=== PATIENT | female | born 1940 | race Caucasian/White ===

== ENCOUNTER 2017-05-31 06:26 | Day surgery (SDC) | payer MEDICARE, BC ==
[2017-05-31] MEDS ORDERED: Lidocaine 1% with EPINEPHrine 1:100,000 50 ML MDV ONE (06:48)
[2017-05-31] MEDS ORDERED: Sodium Tetradecyl Sulfate 1% 20 MG/2 ML SDV ONE (06:48)
[2017-05-31] MEDS ORDERED: Sodium Chloride 0.9% 10 ML ONE (06:48)
[2017-05-31] MEDS ORDERED: Sodium Chloride 0.9% 1,000 ML IV SCH (07:15)
[2017-05-31] MEDS ORDERED: Midazolam 1 MG/ML 2 ML SDV ONE (07:28)
[2017-05-31] MEDS ORDERED: fentaNYL 100 MCG/2 ML SDV ONE (07:28)
[2017-05-31] MEDS ORDERED: Propofol 200 MG/20 ML SDV ONE ×3 (07:28→08:36)
[2017-05-31] MEDS ORDERED: Lidocaine 1% w/EPINEPHrine 50 ML, Sodium Bicarbonate 5 MEQ in Sodium Chloride 0.9% 950 ML INJECT ONE ×7 (07:45→08:45)
[2017-05-31] MEDS ORDERED: Sodium Chloride 0.9% 10 ML SDV FLUSH ONE (08:23)
[2017-05-31] MEDS ORDERED: HYDROmorphone 1 MG/ML Syringe ONE (09:13)
[2017-05-31] MEDS ORDERED: HYDROmorphone 1 MG/ML Syringe IV PRN (09:14)
[2017-05-31 11:40] VITALS: BP 180/85
--- NOTE | 2017-05-31 11:46 | OR ---
DATE OF PROCEDURE: 05/31/2017 PROCEDURES: 1. Radiofrequency ablation of left greater saphenous vein. 2. Sclerotherapy of left leg, multiple. 3. Attempted, but unsuccessful ablation of left lesser saphenous vein. 4. Debridement of venous ulcer, left leg (00975). 5. CoFlex compression wrapping, left leg (34258). COMPLICATIONS: None. BUSINESS UNIT MANAGER: None. PREOPERATIVE DIAGNOSIS: Venous ulcer/venous insufficiency. POSTOPERATIVE DIAGNOSIS: Venous ulcer/venous insufficiency. RISKS: Risks, benefits, alternatives, and limitations including, but not limited to infection, bleeding, and DVT were explained to the patient, and they wished to proceed. PROCEDURE IN DETAIL: The patient was placed in supine position. The left LSV was accessed first using a 21-gauge needle. Then, this was then exchanged for a 35,000th wire, then exchanged for a 7-Nepali sheath. This procedure was then performed on the left greater saphenous vein at the level of the ankle with a different set. RFA probe was advanced in the greater saphenous vein to 3 cm from the junction. 1.5 L of tumescent fluid was injected in 1 cm jacket around this. This had poor tumescent fluid injection with the lipodermatosclerosis of the patient's skin. Direct even pressure was then performed as the RFA was probed, performed x2 proximally and distally, and x1 in all other segments. The sheath and device were removed. Direct pressure was held for 10 minutes. The LSV on left was attempted to be advanced, but the RFA probe was not able to be advanced due to tortuosity of the vein. This was then removed and Dermabond was applied. Sclerotherapy was then performed on 7 veins in the left leg, ranging from 1 to 10 cm. This was injected using 0.33% sodium tetradactyl and always drawn back to ensure intravascular injection only. Debridement of left leg ulcer was performed using a curette and 15 blade. This was full thickness. This appeared to be healing. CoFlex wrapping was then performed in a two-stage compression layer with gradient prepped from the ankle proximally. The patient tolerated the procedure well. Teodoro Sharma MD /[id number]
== END 2017-05-31 11:35 | disposition home or self-care (01) ==
LOC: JP.SDS 06:26
PROVIDERS: ATTEND Surgery
DX: I87.2 Venous insufficiency (chronic) (peripheral) (principal); I10 Essential (primary) hypertension; E78.00 Pure hypercholesterolemia, unspecified; E11.9 Type 2 diabetes mellitus without complications; Z88.8 Allergy status to other drugs, medicaments and biological substances; I83.892 Varicose veins of left lower extremity with other complications
CPT/HCPCS: 11043; 36471; 36475; 97605; J1170; J1642; J2250; J2704; J3010; J7040; J7050

== ENCOUNTER 2017-09-23 17:18 | Inpatient (IN) | payer MEDICARE, BC ==
--- NOTE | 2017-09-23 18:17 | EDM.PDOC ---
ED HPI GENERAL MEDICAL PROBLEM - General Chief Complaint: General Stated Complaint: LETHARGIC Time Seen by Provider: 09/23/17 17:51 Source of Information: Reports: Patient History Limitations: Reports: No Limitations - History of Present Illness INITIAL COMMENTS - FREE TEXT/NARRATIVE: 76 yo female presents to ER via EMS with complaint of lethargy. 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 She has extensive hx of lower leg edema. Today she had home nurse visit to set her compression boot. She did miss lunch today. When her son arrived this after noon he reprted to EMS that she was slow to respond and appeared confused. She was nauseated and was given zofran en route and this has resolved. Pt states she is very tired. Currently she feels she is thinking at baseline and sons at bedside believe she is at baseline. mild headache and dry tongue. She did receive 500 mL normal saline enroute. - Related Data Allergies Allergy/AdvReac Type Severity Reaction Status Date / Time brinzolamide Allergy Cannot Verified 09/23/17 17:34 Remember timolol maleate Allergy Cannot Verified 05/31/17 07:09 [From Timoptic] Remember Home Meds: Home Meds Ammonium Lactate [Lac-Hydrin 12% Crm] 0 gm TOP BID 04/06/15 [History] Aspirin [Halfprin] 81 mg PO DAILY 04/06/15 [History] Betaxolol [Betoptic S 0.25% Ophth Susp] 1 drop EYEBOTH BID 04/06/15 [History] Calcium Carbonate [Oyster Shell Calcium] 500 mg PO DAILY 04/06/15 [History] Carbidopa/Levodopa [Carbidopa-Levodopa 25-100 Tab] 1 each PO BEDTIME 04/06/15 [ History] Furosemide [Furosemide] 40 mg PO DAILY 04/06/15 [History] Losartan [Cozaar] 100 mg PO DAILY 04/06/15 [History] Magnesium Oxide 250 mg PO BID 04/06/15 [History] Metoprolol Tartrate 50 mg PO BID 04/06/15 [History] Multivitamin with Minerals [Multiple Vitamin] 1 tab PO DAILY 04/06/15 [History] OXcarbazepine [Oxcarbazepine] 300 mg PO BID PRN 04/06/15 [History] Omeprazole [Omeprazole] 20 mg PO DAILY 04/06/15 [History] Pramipexole [Mirapex] 0.5 mg PO BEDTIME 04/06/15 [History] metFORMIN HCl [Metformin HCl] 250 mg PO BID 04/06/15 [History] Latanoprost [Xalatan 0.005% Ophth Soln] 1 drop EYEBOTH BEDTIME 05/30/17 [History ] Ubidecarenone [Coenzyme Q10] 100 mg PO DAILY 05/30/17 [History] Simvastatin [Simvastatin] 10 mg PO DAILY 05/31/17 [History] Acetaminophen/oxyCODONE [Percocet 325-5 MG] 1 tab PO Q4HR PRN 09/23/17 [History] Betaxolol [Betoptic S 0.25% Ophth Susp] 1 drop TOP BID 09/23/17 [History] Clindamycin HCl [Cleocin] 1 tab PO TID 09/23/17 [History] Hydrocortisone [Hydrocortisone 0.5% Crm] 1 ml TOP BID 09/23/17 [History] Past Medical History HEENT History: Reports: Cataract Cardiovascular History: Reports: High Cholesterol, Hypertension Gastrointestinal History: Reports: GERD, Hiatal Hernia MEDICAL PRACTICE MANAGER History: Reports: Musculoskeletal History: Reports: Back Pain, Chronic, Fracture, Neck Pain, Chronic Other Musculoskeletal History: compression fractures of the spine, restless leg Neurological History: Reports: None Endocrine/Metabolic History: Reports: Diabetes, Type II, Obesity/BMI 30+ Dermatologic History: Reports: Decubitus Ulcer - Past Surgical History Head Surgeries/Procedures: Reports: None HEENT Surgical History: Reports: Cataract Surgery, Eye Surgery, Naso-Sinus Surgery Other HEENT Surgeries/Procedures: glacoma surgery nasal surgery Cardiovascular Surgical History: Reports: None GI Surgical History: Reports: Appendectomy, Cholecystectomy, Colonoscopy, EGD Endocrine Surgical History: Reports: None Neurological Surgical History: Reports: Lumbar Spine Other Neurological Surgeries/Procedures: kyphoplasty Musculoskeletal Surgical History: Reports: None Dermatological Surgical History: Reports: None Social & Family History - Family History Family Medical History: Noncontributory - Tobacco Use Smoking Status *Q: Never Smoker Second Hand Smoke Exposure: No - Caffeine Use Caffeine Use: Reports: Coffee - Alcohol Use Days Per Week of Alcohol Use: 0 - Recreational Drug Use Recreational Drug Use: No ED ROS GENERAL - Review of Systems Review Of Systems: See Below Constitutional: Reports: Fatigue. Denies: Fever, Chills HEENT: Denies: Sinus Problem Cardiovascular: Reports: Edema. Denies: Chest Pain, Blood Pressure Problem, Syncope GI/Abdominal: Reports: Abdominal Pain (mild), Constipation, Nausea. Denies: Vomiting Skin: Denies: Rash ED EXAM, GENERAL - Physical Exam Exam: See Below Exam Limited By: No Limitations General Appearance: Alert, WD/WN, No Apparent Distress Throat/Mouth: Other (dry ) Head: Atraumatic, Normocephalic Neck: Normal Inspection, Supple, Non-Tender, Full Range of Motion Respiratory/Chest: No Respiratory Distress, Lungs Clear, Normal Breath Sounds, No Accessory Muscle Use, Chest Non-Tender Cardiovascular: Regular Rate, Rhythm, Systolic Murmur GI/Abdominal: Soft, Non-Tender Extremities: Other (bilateral LE extensive edema) Neurological: Alert, Oriented, CN II-XII Intact, Normal Cognition Psychiatric: Normal Affect, Normal Mood Skin Exam: Warm, Dry, Intact Course - Vital Signs Last Recorded V/S: Last Vital Signs Temp 35.8 C 09/23/17 17:47 Pulse 64 09/23/17 17:47 Resp 14 09/23/17 17:47 BP 123/53 L 09/23/17 17:47 Pulse Ox 96 09/23/17 17:47 - Orders/Labs/Meds Labs: Laboratory Tests 09/23/17 09/23/17 09/23/17 Range/Units 18:17 18:17 18:17 WBC 10.9 (4.5-11.0) K/uL RBC 3.97 (3.30-5.50) M/uL Hgb 11.7 L (12.0-15.0) g/dL Hct 34.1 L (36.0-48.0) % MCV 86 (80-98) fL MCH 30 (27-31) pg MCHC 34 (32-36) % Plt Count 424 H (150-400) K/uL Neut % (Auto) 86 H (36-66) % Lymph % (Auto) 6 L (24-44) % [place] % (Auto) 7 H (2-6) % Eos % (Auto) 1 L (2-4) % Baso % (Auto) 0 (0-1) % Sodium 124 L (140-148) mmol/L Potassium 5.5 H (3.6-5.2) mmol/L Chloride 92 L (100-108) mmol/L Carbon Dioxide 22 (21-32) mmol/L Anion Gap 15.5 H (5.0-14.0) mmol/L BUN 74 H (7-18) mg/dL Creatinine 2.4 H (0.6-1.0) mg/dL Est Cr Clr Drug Dosing 14.10 mL/min Estimated GFR (MDRD) 20 L (>60) Glucose 122 H (74-106) mg/dL Calcium 9.0 (8.5-10.1) mg/dL Total Bilirubin 0.5 (0.2-1.0) mg/dL AST 22 (15-37) U/L ALT 23 (12-78) U/L Alkaline Phosphatase 194 H (46-116) U/L NT-Pro-B Natriuret Pep 1189 H (5-450) pg/mL Total Protein 7.5 (6.4-8.2) g/dL Albumin 2.8 L (3.4-5.0) g/dL Globulin 4.7 H (2.3-3.5) g/dL Albumin/Globulin Ratio 0.6 L (1.2-2.2) Urine Color Urine Appearance Urine pH (4.5-8.0) Ur Specific [place] (1.008-1.030) Urine Protein (NEGATIVE) mg/dL Urine Glucose (UA) (NEGATIVE) mg/dL Urine Ketones (NEGATIVE) mg/dL Urine Occult Blood (NEGATIVE) Urine Nitrite (NEGATIVE) Urine Bilirubin (NEGATIVE) Urine Urobilinogen (NORMAL) mg/dL Ur Leukocyte Esterase (NEGATIVE) Urine RBC (0-5) Urine WBC (0-5) Ur Epithelial Cells Amorphous Sediment Urine Bacteria Urine Mucus 09/23/17 Range/Units 18:18 WBC (4.5-11.0) K/uL RBC (3.30-5.50) M/uL Hgb (12.0-15.0) g/dL Hct (36.0-48.0) % MCV (80-98) fL MCH (27-31) pg MCHC (32-36) % Plt Count (150-400) K/uL Neut % (Auto) (36-66) % Lymph % (Auto) (24-44) % [place] % (Auto) (2-6) % Eos % (Auto) (2-4) % Baso % (Auto) (0-1) % Sodium (140-148) mmol/L Potassium (3.6-5.2) mmol/L Chloride (100-108) mmol/L Carbon Dioxide (21-32) mmol/L Anion Gap (5.0-14.0) mmol/L BUN (7-18) mg/dL Creatinine (0.6-1.0) mg/dL Est Cr Clr Drug Dosing mL/min Estimated GFR (MDRD) (>60) Glucose (74-106) mg/dL Calcium (8.5-10.1) mg/dL Total Bilirubin (0.2-1.0) mg/dL AST (15-37) U/L ALT (12-78) U/L Alkaline Phosphatase (46-116) U/L NT-Pro-B Natriuret Pep (5-450) pg/mL Total Protein (6.4-8.2) g/dL Albumin (3.4-5.0) g/dL Globulin (2.3-3.5) g/dL Albumin/Globulin Ratio (1.2-2.2) Urine Color Yellow Urine Appearance Slightly cloudy Urine pH 5.0 (4.5-8.0) Ur Specific [place] 1.015 (1.008-1.030) Urine Protein Negative (NEGATIVE) mg/dL Urine Glucose (UA) Normal (NEGATIVE) mg/dL Urine Ketones Negative (NEGATIVE) mg/dL Urine Occult Blood Moderate (NEGATIVE) Urine Nitrite Positive H (NEGATIVE) Urine Bilirubin Negative (NEGATIVE) Urine Urobilinogen Normal (NORMAL) mg/dL Ur Leukocyte Esterase Negative (NEGATIVE) Urine RBC 5-10 H (0-5) Urine WBC 5-10 H (0-5) Ur Epithelial Cells Few Amorphous Sediment Not seen Urine Bacteria Many Urine Mucus Rare - Re-Assessments/Exams Free Text/Narrative Re-Assessment/Exam: 09/23/17 19:09 pt will be admitted with UTI, and dehydration. significant decrease in kidney function in 4 months with BNP 1189. pt states that over the last 4 week she has not been diuresising as much as before with her Lasix dose of 40 mg and bilateral legs have increased in size and increase in pain. Dr. Augustine accepted for admission. Departure - Departure Time of Disposition: 19:13 Disposition: Admitted As Inpatient 65 Condition: Fair Clinical Impression: UTI, Urinary tract infectious disease, Dehydration - Discharge Information Referrals: PCP,None [Primary Care Provider] - Forms: ED Department Discharge
[2017-09-23] MEDS ORDERED: Sodium Chloride 0.9% 10 ML Syringe FLUSH PRN (19:24)
--- NOTE | 2017-09-23 19:41 | PCM.HP ---
H&P History of Present Illness - General Date of Service: 09/23/17 Admit Problem/Dx: Admission Diagnosis/Problem Admission Diagnosis/Problem Acute kidney injury Source of Information: Patient, Family, Provider History Limitations: Reports: No Limitations - History of Present Illness Initial Comments - Free Text/Narative: Migdalia presents to the emergency room today with lethargy and weakness. She reports that she has not felt well for the past month but has felt especially worse for the past 2-3 days. She has been very fatigued and has not been sleeping well. 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 She does not report abdominal pain or vomiting but has had some nausea. She has not had much of an appetite and has had very little to eat or drink. She reports moderate sharp and throbbing pain in both of her lower legs. This has been worsening over the past month. Worse with any sort of pressure over the legs. Better with less pressure on the legs. She has been working with Dr. Sharma and other folks to help with wound care but has not made much progress and things have been slowly worsening. Home health care has been assisting with trying to improve the edema. She has not had fevers. No obvious sick contacts. No dysuria or increased urinary frequency. She has noticed that she's been urinating less than usual. Workup in the emergency room revealed hyponatremia, hyperkalemia and acute kidney injury as well as evidence for urinary tract infection. Vital signs do not suggest sepsis at this time. She'll be admitted for hydration and management. - Related Data Allergies/Adverse Reactions: Allergies Allergy/AdvReac Type Severity Reaction Status Date / Time brinzolamide Allergy Cannot Verified 09/23/17 17:34 Remember timolol maleate Allergy Cannot Verified 05/31/17 07:09 [From Timoptic] Remember Home Medications: Home Meds Ammonium Lactate [Lac-Hydrin 12% Crm] 0 gm TOP BID 04/06/15 [History] Aspirin [Halfprin] 81 mg PO DAILY 04/06/15 [History] Betaxolol [Betoptic S 0.25% Ophth Susp] 1 drop EYEBOTH BID 04/06/15 [History] Calcium Carbonate [Oyster Shell Calcium] 500 mg PO DAILY 04/06/15 [History] Carbidopa/Levodopa [Carbidopa-Levodopa 25-100 Tab] 1 each PO BEDTIME 04/06/15 [ History] Furosemide [Furosemide] 40 mg PO DAILY 04/06/15 [History] Losartan [Cozaar] 100 mg PO DAILY 04/06/15 [History] Magnesium Oxide 250 mg PO BID 04/06/15 [History] Metoprolol Tartrate 50 mg PO BID 04/06/15 [History] Multivitamin with Minerals [Multiple Vitamin] 1 tab PO DAILY 04/06/15 [History] OXcarbazepine [Oxcarbazepine] 300 mg PO BID PRN 04/06/15 [History] Omeprazole [Omeprazole] 20 mg PO DAILY 04/06/15 [History] Pramipexole [Mirapex] 0.5 mg PO BEDTIME 04/06/15 [History] metFORMIN HCl [Metformin HCl] 250 mg PO BID 04/06/15 [History] Latanoprost [Xalatan 0.005% Ophth Soln] 1 drop EYEBOTH BEDTIME 05/30/17 [History ] Ubidecarenone [Coenzyme Q10] 100 mg PO DAILY 05/30/17 [History] Simvastatin [Simvastatin] 10 mg PO DAILY 05/31/17 [History] Acetaminophen/oxyCODONE [Percocet 325-5 MG] 1 tab PO Q4HR PRN 09/23/17 [History] Betaxolol [Betoptic S 0.25% Ophth Susp] 1 drop TOP BID 09/23/17 [History] Clindamycin HCl [Cleocin] 1 tab PO TID 09/23/17 [History] Hydrocortisone [Hydrocortisone 0.5% Crm] 1 ml TOP BID 09/23/17 [History] Past Medical History HEENT History: Reports: Cataract Cardiovascular History: Reports: High Cholesterol, Hypertension Gastrointestinal History: Reports: GERD, Hiatal Hernia 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: Musculoskeletal History: Reports: Back Pain, Chronic, Fracture, Neck Pain, Chronic Other Musculoskeletal History: compression fractures of the spine, restless leg Neurological History: Reports: None Endocrine/Metabolic History: Reports: Diabetes, Type II, Obesity/BMI 30+ Dermatologic History: Reports: Decubitus Ulcer - Past Surgical History Head Surgeries/Procedures: Reports: None HEENT Surgical History: Reports: Cataract Surgery, Eye Surgery, Naso-Sinus Surgery Other HEENT Surgeries/Procedures: glacoma surgery nasal surgery Cardiovascular Surgical History: Reports: None GI Surgical History: Reports: Appendectomy, Cholecystectomy, Colonoscopy, EGD Endocrine Surgical History: Reports: None Neurological Surgical History: Reports: Lumbar Spine Other Neurological Surgeries/Procedures: kyphoplasty Musculoskeletal Surgical History: Reports: None Dermatological Surgical History: Reports: None Social & Family History - Family History Family Medical History: Noncontributory - Tobacco Use Smoking Status *Q: Never Smoker Second Hand Smoke Exposure: No - Caffeine Use Caffeine Use: Reports: Coffee - Alcohol Use Days Per Week of Alcohol Use: 0 - Recreational Drug Use Recreational Drug Use: No H&P Review of Systems - Review of Systems: Review Of Systems: See Below Free Text/Narrative: A complete 12 point review of systems was obtained. Pertinent positives and negatives are noted in the history of present illness. All other systems were reviewed and were negative except as noted. Exam - Exam Exam: See Below - Vital Signs Vital Signs: Last Vital Signs Temp 35.8 C 09/23/17 17:47 Pulse 64 09/23/17 17:47 Resp 14 09/23/17 17:47 BP 123/53 L 09/23/17 17:47 Pulse Ox 96 09/23/17 17:47 Weight: 89.811 kg - Exam Quality Assessment: No: Supplemental Oxygen General: Alert, Oriented, Cooperative. No: Mild Distress HEENT: Conjunctiva Clear. No: Mucosa Moist & [place] (dry), Scleral Icterus Neck: Supple, Trachea Midline. No: Lymphadenopathy Lungs: Clear to Auscultation, Normal Respiratory Effort Cardiovascular: Regular Rate, Regular Rhythm, Systolic Murmur GI/Abdominal Exam: Normal Bowel Sounds, Soft, Non-Tender, No Distention Back Exam: Full Range of Motion. No: Muscle Spasm Extremities: Pedal Edema (Pitting edema of both lower legs to near the knee with acute venous stasis changes and open weeping areas). No: Joint Swelling, Increased Warmth Skin: Warm, Dry, Wound (Open weeping areas of both lower legs. No evidence for erythema or infection) Neuro Extensive - Mental Status: Alert, Oriented x3, Nl Response to Commands Neuro Extensive - Motor, Sensory, Reflexes: CN II-XII Intact. No: Dysarthria, Abnormal Motor, Tremor Psychiatric: Alert, Normal Affect - Patient Data Lab Results Last 24 hrs: Laboratory Results - last 24 hr 09/23/17 09/23/17 09/23/17 Range/Units 18:17 18:17 18:17 WBC 10.9 (4.5-11.0) K/uL RBC 3.97 (3.30-5.50) M/uL Hgb 11.7 L (12.0-15.0) g/dL Hct 34.1 L (36.0-48.0) % MCV 86 (80-98) fL MCH 30 (27-31) pg MCHC 34 (32-36) % Plt Count 424 H (150-400) K/uL Neut % (Auto) 86 H (36-66) % Lymph % (Auto) 6 L (24-44) % [place] % (Auto) 7 H (2-6) % Eos % (Auto) 1 L (2-4) % Baso % (Auto) 0 (0-1) % Sodium 124 L (140-148) mmol/L Potassium 5.5 H (3.6-5.2) mmol/L Chloride 92 L (100-108) mmol/L Carbon Dioxide 22 (21-32) mmol/L Anion Gap 15.5 H (5.0-14.0) mmol/L BUN 74 H (7-18) mg/dL Creatinine 2.4 H (0.6-1.0) mg/dL Est Cr Clr Drug Dosing 14.10 mL/min Estimated GFR (MDRD) 20 L (>60) Glucose 122 H (74-106) mg/dL Calcium 9.0 (8.5-10.1) mg/dL Total Bilirubin 0.5 (0.2-1.0) mg/dL AST 22 (15-37) U/L ALT 23 (12-78) U/L Alkaline Phosphatase 194 H (46-116) U/L NT-Pro-B Natriuret Pep 1189 H (5-450) pg/mL Total Protein 7.5 (6.4-8.2) g/dL Albumin 2.8 L (3.4-5.0) g/dL Globulin 4.7 H (2.3-3.5) g/dL Albumin/Globulin Ratio 0.6 L (1.2-2.2) Urine Color Urine Appearance Urine pH (4.5-8.0) Ur Specific [place] (1.008-1.030) Urine Protein (NEGATIVE) mg/dL Urine Glucose (UA) (NEGATIVE) mg/dL Urine Ketones (NEGATIVE) mg/dL Urine Occult Blood (NEGATIVE) Urine Nitrite (NEGATIVE) Urine Bilirubin (NEGATIVE) Urine Urobilinogen (NORMAL) mg/dL Ur Leukocyte Esterase (NEGATIVE) Urine RBC (0-5) Urine WBC (0-5) Ur Epithelial Cells Amorphous Sediment Urine Bacteria Urine Mucus 09/23/17 Range/Units 18:18 WBC (4.5-11.0) K/uL RBC (3.30-5.50) M/uL Hgb (12.0-15.0) g/dL Hct (36.0-48.0) % MCV (80-98) fL MCH (27-31) pg MCHC (32-36) % Plt Count (150-400) K/uL Neut % (Auto) (36-66) % Lymph % (Auto) (24-44) % [place] % (Auto) (2-6) % Eos % (Auto) (2-4) % Baso % (Auto) (0-1) % Sodium (140-148) mmol/L Potassium (3.6-5.2) mmol/L Chloride (100-108) mmol/L Carbon Dioxide (21-32) mmol/L Anion Gap (5.0-14.0) mmol/L BUN (7-18) mg/dL Creatinine (0.6-1.0) mg/dL Est Cr Clr Drug Dosing mL/min Estimated GFR (MDRD) (>60) Glucose (74-106) mg/dL Calcium (8.5-10.1) mg/dL Total Bilirubin (0.2-1.0) mg/dL AST (15-37) U/L ALT (12-78) U/L Alkaline Phosphatase (46-116) U/L NT-Pro-B Natriuret Pep (5-450) pg/mL Total Protein (6.4-8.2) g/dL Albumin (3.4-5.0) g/dL Globulin (2.3-3.5) g/dL Albumin/Globulin Ratio (1.2-2.2) Urine Color Yellow Urine Appearance Slightly cloudy Urine pH 5.0 (4.5-8.0) Ur Specific [place] 1.015 (1.008-1.030) Urine Protein Negative (NEGATIVE) mg/dL Urine Glucose (UA) Normal (NEGATIVE) mg/dL Urine Ketones Negative (NEGATIVE) mg/dL Urine Occult Blood Moderate (NEGATIVE) Urine Nitrite Positive H (NEGATIVE) Urine Bilirubin Negative (NEGATIVE) Urine Urobilinogen Normal (NORMAL) mg/dL Ur Leukocyte Esterase Negative (NEGATIVE) Urine RBC 5-10 H (0-5) Urine WBC 5-10 H (0-5) Ur Epithelial Cells Few Amorphous Sediment Not seen Urine Bacteria Many Urine Mucus Rare Result Diagrams: 09/23/17 18:17 09/23/17 18:17 *Q Meaningful Use (ADM) - VTE *Q VTE Criteria *Q: VTE Mechanical Contraindications *Q: Bilateral Lower Dermatits - VTE Risk Assess *Q Each Risk Factor Represents 1 Point: Swollen Legs, Current, Obesity ( BMI > 25 kg/m2) Total Score 1 Point Risk Factors: 2 Each Risk Factor Represents 2 Points: None Total Score 2 Point Risk Factors: 0 Each Risk Factor Represents 3 Points: Age 75 Years or Greater Total Score 3 Point Risk Factors: 3 Each Risk Factor Represents 5 Points: None Total Score 5 Point Risk Factors: 0 Venous Thromboembolism Risk Factor Score *Q: 5 - Stroke *Q Stroke Criteria *Q: - AMI *Q AMI Criteria *Q: - Problem List (1) Acute cystitis without hematuria SNOMED Code(s): 99644762 ICD Code: N30.00 - ACUTE CYSTITIS WITHOUT HEMATURIA Status: Acute Current Visit: Yes (2) Acute kidney injury SNOMED Code(s): 50388962 ICD Code: N17.9 - ACUTE KIDNEY FAILURE, UNSPECIFIED Status: Acute Current Visit: Yes (3) Hyponatremia SNOMED Code(s): 60110696 ICD Code: E87.1 - HYPO-OSMOLALITY AND HYPONATREMIA Status: Acute Current Visit: Yes (4) Bilateral lower extremity edema SNOMED Code(s): 751076430 ICD Code: R60.0 - LOCALIZED EDEMA Status: Acute Current Visit: Yes (5) Stasis dermatitis of both legs SNOMED Code(s): 71221264 ICD Code: I87.2 - VENOUS INSUFFICIENCY (CHRONIC) (PERIPHERAL) Status: Acute Current Visit: Yes Problem List Initiated/Reviewed/Updated: Yes Orders Last 24hrs: Active Orders 24 hr Category Date Time Status Patient Status Manage Transfer [TRANSFER] Routine ADT 09/23/17 19:27 Ordered Peripheral IV Care [RC] . DIRECTED Care 09/23/17 19:25 Active CULTURE URINE [RM] Routine Lab 09/23/17 19:00 Received Sodium Chloride 0.9% [Normal Saline] 1,000 ml Med 09/23/17 19:30 Active IV ASDIRECTED Sodium Chloride 0.9% [Saline Flush] Med 09/23/17 19:24 Active 10 ml FLUSH ASDIRECTED PRN cefTRIAXone [Rocephin] 1 gm Med 09/23/17 19:30 Active Sodium Chloride 0.9% [Normal Saline] 50 ml IV Q24H Peripheral IV Insertion Adult [OM.PC] Routine Oth 09/23/17 19:24 Ordered Resuscitation Status Routine Resus Stat 09/23/17 19:29 Ordered Medication Orders Ceftriaxone Sodium 1 gm/ (Sodium Chloride) 50 mls @ 100 mls/hr IV Q24H NAREN Sodium Chloride (Normal Saline) 1,000 mls @ 125 mls/hr IV ASDIRECTED NAREN Sodium Chloride (Saline Flush) 10 ml FLUSH ASDIRECTED PRN PRN Reason: Keep Vein Open Assessment/Plan Comment:: ASSESSMENT AND PLAN - Acute cystitis - no evidence for sepsis at this time but patient does have significant dehydration and electrolyte abnormalities as discussed below. Not safe for outpatient management. -Ceftriaxone -IV fluids -Follow-up urine culture Acute kidney injury - Baseline creatinine 0.7 and now greater than 2. Likely related to dehydration and should improve with fluids. -IV fluids overnight and repeat labs -Hold diuretic Hyperkalemia - mild, probably related to acute kidney injury. -IV fluids -Hold ARB Hyponatremia - likely due to dehydration with poor intake recently. -Repeat labs in the morning after hydration Chronic lower extremity edema with venous stasis dermatitis, bilateral - long- standing issue with lower extremity edema which has been slowly progressive. Multiple open areas on the left leg. Recent wrapping of the right leg with absorbent material and Coban. She has been working with Dr. Sharma and a variety of different things have been tried to help with her edema. I think it is all caused by venous stasis and doubt that there is contribution from congestive heart failure. -Local wound care with Aquacel Maintenance issues - - DVT prophylaxis - enoxaparin - GI prophylaxis - PPI - Nutrition - low sodium diet - Bhardwaj catheter - not indicated CODE STATUS - DNR/DNI Admission justification - This patient will be admitted for inpatient services and is medically appropriate meeting medical necessity for inpatient admission as outlined in my documentation. I reasonably expect the patient will require inpatient services that span a period time over 2 midnights. I reasonably expect this patient to be discharged or transferred within 96 hours after admission to the [facility]. Disposition - anticipate discharge to home after the hospital stay Primary care physician - Donita Augustine M.D.
[2017-09-23] MEDS ORDERED: Acetaminophen/oxyCODONE 325-5 MG Tab PO ONE (19:42)
[2017-09-23] MEDS: cefTRIAXone 1 GM in Sodium Chloride 0.9% 50 ML IV SCH (19:49)
[2017-09-23] MEDS: Sodium Chloride 0.9% 1,000 ML IV SCH (19:50)
[2017-09-23] MEDS ORDERED: Timolol Maleate 0.25% Ophth Soln 5 ML Bottle EYEBOTH SCH (21:05)
[2017-09-23] MEDS ORDERED: Polyethylene Glycol 3350 Powder 17 GM Packet PO PRN (21:05)
[2017-09-23] MEDS ORDERED: Acetaminophen 325 MG Tab PO PRN (21:05)
[2017-09-23] MEDS ORDERED: OXcarbazepine 300 MG Tab PO PRN (21:05)
[2017-09-23] MEDS ORDERED: Acetaminophen/oxyCODONE 325-5 MG Tab PO PRN (21:05)
[2017-09-23] MEDS ORDERED: Ondansetron 4 MG Tab.DIS PO PRN (21:05)
[2017-09-23] MEDS: HYDROmorphone 0.5 MG/0.5 ML Syringe IVPUSH PRN (22:12)
[2017-09-23] MEDS: Carbidopa/Levodopa 25-100 MG Tab PO SCH (22:20)
[2017-09-23] MEDS: Metoprolol Tartrate 50 MG Tab PO SCH (22:20)
[2017-09-23] MEDS: Simvastatin 20 MG Tab PO SCH (22:20)
[2017-09-23] MEDS: Pramipexole 0.5 MG Tab PO SCH (22:31)
[2017-09-23] MEDS: Latanoprost 0.005% Ophth Soln 2.5 ML Bottle EYEBOTH SCH (23:48)
[2017-09-24] MEDS: Acetaminophen/oxyCODONE 325-5 MG Tab PO PRN ×5 (00:25→19:42)
[2017-09-24] MEDS: Sodium Chloride 0.9% 1,000 ML IV SCH (04:51)
[2017-09-24] MEDS: Enoxaparin 30 MG/0.3 ML Syringe SUBCUT SCH (09:01)
[2017-09-24] MEDS: Pantoprazole 40 MG Tab.CR PO SCH (09:02)
[2017-09-24] MEDS: Aspirin 81 MG Tab.EC PO SCH (09:02)
[2017-09-24] MEDS: Metoprolol Tartrate 50 MG Tab PO SCH (09:02)
[2017-09-24] MEDS ORDERED: FLU Vacc TS 2017-18 (65yr UP)/PF 180 MCG/0.5 ML Syringe IM ONE (10:00)
--- NOTE | 2017-09-24 12:03 | PCM.PN ---
- General Info Date of Service: 09/24/17 Functional Status: Reports: Pain Controlled, Tolerating Diet, Urinating - Review of Systems General: Reports: Weakness. Denies: Fever, Chills Pulmonary: Reports: No Symptoms Cardiovascular: Reports: No Symptoms Gastrointestinal: Reports: No Symptoms Systems Review Comment:: Ms. Colin has been stable since admission with generalized weakness and severe peripheral edema both lower extremities. On evaluation was also found to have evidence of urinary tract infection and is currently on antibiotic therapy with cultures pending. She remains very weak, peripheral edema has improved modestly. Vital signs have been stable and she has remained afebrile. - Patient Data Vitals - Most Recent: Last Vital Signs Temp 96.4 F 09/24/17 10:37 Pulse 68 09/24/17 10:37 Resp 18 09/24/17 10:37 BP 128/88 09/24/17 10:37 Pulse Ox 92 L 09/24/17 10:37 Weight - Most Recent: 197 lb 15.99 oz I&O - Last 24 Hours: Intake & Output 09/23/17 09/24/17 09/24/17 22:59 06:59 14:59 Intake Total 1459 120 Output Total 825 Balance 634 120 Lab Results Last 24 Hours: Laboratory Results - last 24 hr 09/24/17 09/24/17 Range/Units 04:30 04:30 WBC 8.6 (4.5-11.0) K/uL RBC 3.54 (3.30-5.50) M/uL Hgb 10.4 L (12.0-15.0) g/dL Hct 30.6 L (36.0-48.0) % MCV 86 (80-98) fL MCH 29 (27-31) pg MCHC 34 (32-36) % Plt Count 402 H (150-400) K/uL Sodium 129 L (140-148) mmol/L Potassium 5.3 H (3.6-5.2) mmol/L Chloride 97 L (100-108) mmol/L Carbon Dioxide 24 (21-32) mmol/L Anion Gap 13.3 (5.0-14.0) mmol/L BUN 58 H (7-18) mg/dL Creatinine 1.7 H (0.6-1.0) mg/dL Est Cr Clr Drug Dosing 19.91 mL/min Estimated GFR (MDRD) 29 L (>60) Glucose 111 H (74-106) mg/dL Calcium 8.8 (8.5-10.1) mg/dL Med Orders - Current: Current Medications Acetaminophen (Tylenol) 650 mg PO Q4H PRN PRN Reason: Pain (Mild 1-3)/fever Aspirin (Halfprin) 81 mg PO DAILY [facility] Last Admin: 09/24/17 09:02 Dose: 81 mg Carbidopa/Levodopa (Sinemet 25-100 Mg) 1 tab PO BEDTIME [facility] Last Admin: 09/23/17 22:20 Dose: 1 tab Enoxaparin Sodium (Lovenox) 30 mg SUBCUT DAILY [facility] Last Admin: 09/24/17 09:01 Dose: 30 mg Hydromorphone HCl (Dilaudid) 0.5 mg IVPUSH Q2H PRN PRN Reason: Pain Last Admin: 09/23/17 22:12 Dose: 0.5 mg Ceftriaxone Sodium 1 gm/ (Sodium Chloride) 50 mls @ 100 mls/hr IV Q24H [facility] Last Admin: 09/23/17 19:49 Dose: 100 mls/hr Latanoprost (Xalatan 0.005% Ophth Soln) 0 ml EYEBOTH BEDTIME [facility] Last Admin: 09/23/17 23:48 Dose: Not Given Metoprolol Tartrate (Lopressor) 50 mg PO BID [facility] Last Admin: 09/24/17 09:02 Dose: 50 mg Non-Formulary Medication (Betaxolol [Betoptic S 0.25% Ophth Susp]) 1 drop EYEBOTH BID [facility] Ondansetron HCl (Zofran Odt) 4 mg PO Q6H PRN PRN Reason: Nausea able to take PO Oxcarbazepine (Trileptal) 300 mg PO BID PRN PRN Reason: Pain Oxycodone/Acetaminophen (Percocet 325-5 Mg) 1 - 2 tab PO Q4H PRN PRN Reason: Pain Last Admin: 09/24/17 11:27 Dose: 2 tab Pantoprazole Sodium (Protonix) 40 mg PO ACBREAKFAST [facility] Last Admin: 09/24/17 09:02 Dose: 40 mg Polyethylene Glycol (Miralax) 17 gm PO DAILY PRN PRN Reason: Constipation Pramipexole Dihydrochloride (Mirapex) 0.5 mg PO BEDTIME [facility] Last Admin: 09/23/17 22:31 Dose: 0.5 mg Senna/Docusate Sodium (Senna Plus) 1 tab PO BID PRN PRN Reason: Constipation Last Admin: 09/23/17 22:20 Dose: 1 tab Simvastatin (Zocor) 10 mg PO BEDTIME [facility] Last Admin: 09/23/17 22:20 Dose: 10 mg Sodium Chloride (Saline Flush) 10 ml FLUSH ASDIRECTED PRN PRN Reason: Keep Vein Open Last Admin: 09/23/17 19:49 Dose: 10 ml Discontinued Medications Sodium Chloride (Normal Saline) 1,000 mls @ 125 mls/hr IV ASDIRECTED [facility] Last Admin: 09/24/17 04:51 Dose: 125 mls/hr Influenza Virus Vaccine (Pharmacy To Dose - Influenza Vaccine) 1 each IM ONETIME ONE Stop: 09/24/17 09:01 Influenza Virus Vaccine (Fluzone High-Dose 2016-) 180 mcg IM .ONCE ONE Stop: 09/24/17 10:01 Oxycodone/Acetaminophen (Percocet 325-5 Mg) 1 tab PO ONETIME ONE Stop: 09/23/17 19:43 Last Admin: 09/23/17 19:51 Dose: 1 tab Oxycodone/Acetaminophen (Percocet 325-5 Mg) 1 tab PO Q4H PRN PRN Reason: Pain Timolol Maleate (Timoptic 0.25% Ophth Soln) 1 ml EYEBOTH BID [facility] Last Admin: 09/23/17 23:47 Dose: Not Given - Exam Quality Assessment: DVT Prophylaxis General: Alert, Oriented, Cooperative, Mild Distress Lungs: Clear to Auscultation, Normal Respiratory Effort Cardiovascular: Regular Rate, Regular Rhythm, No Murmurs GI/Abdominal Exam: Normal Bowel Sounds, Soft, Non-Tender, No Organomegaly, No Distention Extremities: Pedal Edema Skin: Warm, Dry - Problem List Review Problem List Initiated/Reviewed/Updated: Yes - My Orders Last 24 Hours: My Active Orders 09/24/17 11:37 Convert IV to Saline Lock [OM.PC] Routine - Plan Plan:: ASSESSMENT AND PLAN - Acute cystitis - no evidence for sepsis at this time but patient does have significant dehydration and electrolyte abnormalities as discussed below. Tolerating current antibiotic therapy with stable vital signs. -Ceftriaxone -Saline lock IV -Follow-up urine culture Acute kidney injury - renal function has improved with initial hydration but is not yet back to baseline -Repeat labs in a.m. -Saline lock IV -Hold diuretic until tomorrow Hyperkalemia - resolved Hyponatremia -improved following hydration -Repeat labs in the morning Chronic lower extremity edema with venous stasis dermatitis, bilateral - long- standing issue with lower extremity edema which has been slowly progressive. Multiple open areas on the left leg. Recent wrapping of the right leg with absorbent material and Coban. She has been working with Dr. Sharma and a variety of different things have been tried to help with her edema. I think it is all caused by venous stasis and doubt that there is contribution from congestive heart failure. -Local wound care with Aquacel Maintenance issues - - DVT prophylaxis - enoxaparin - GI prophylaxis - PPI - Nutrition - low sodium diet - Bhardwaj catheter - not indicated CODE STATUS - DNR/DNI Admission justification - This patient will be admitted for inpatient services and is medically appropriate meeting medical necessity for inpatient admission as outlined in my documentation. I reasonably expect the patient will require inpatient services that span a period time over 2 midnights. I reasonably expect this patient to be discharged or transferred within 96 hours [facility] Disposition - anticipate discharge to home after the hospital stay Primary care physician - Donita Peralta NP
[2017-09-24] MEDS: cefTRIAXone 1 GM in Sodium Chloride 0.9% 50 ML IV SCH (19:42)
[2017-09-24] MEDS: Latanoprost 0.005% Ophth Soln 2.5 ML Bottle EYEBOTH SCH (20:34)
[2017-09-24] MEDS: Simvastatin 20 MG Tab PO SCH (20:34)
[2017-09-24] MEDS: Pramipexole 0.5 MG Tab PO SCH (20:35)
[2017-09-24] MEDS: Carbidopa/Levodopa 25-100 MG Tab PO SCH (20:35)
--- NOTE | 2017-09-24 21:01 | PCM.SN ---
- Free Text/Narrative Note: time; 20:55; 2 [facility]; request to hold evening dose of Lopressor. blood pressure 93/53 pulse 73, no other concerns. a; hypotension p; hold Lopressor evening dose, restart in am. continue plan of care.
[2017-09-25] MEDS: Acetaminophen/oxyCODONE 325-5 MG Tab PO PRN ×4 (02:47→18:39)
[2017-09-25] MEDS: Pantoprazole 40 MG Tab.CR PO SCH (08:26)
[2017-09-25] MEDS ORDERED: Furosemide 40 MG/4 ML VIAL IVPUSH ONE (09:30)
[2017-09-25] MEDS: Metoprolol Tartrate 50 MG Tab PO SCH ×2 (10:30→20:26)
[2017-09-25] MEDS: Aspirin 81 MG Tab.EC PO SCH (10:30)
[2017-09-25] MEDS: Enoxaparin 30 MG/0.3 ML Syringe SUBCUT SCH (11:01)
[2017-09-25] MEDS: BETOPTIC S 0.25% EYEBOTH SCH ×2 (14:57→20:25)
[2017-09-25] MEDS: HYDROmorphone 0.5 MG/0.5 ML Syringe IVPUSH PRN (17:00)
[2017-09-25] MEDS ORDERED: Magnesium Sulfate/Water 2 GM in Premix Bag 1 BAG IV ONE (17:00)
--- NOTE | 2017-09-25 18:03 | PCM.PN ---
- General Info Date of Service: 09/25/17 Subjective Update: Ms. Lunsford has remained stable since yesterday, she's had a good diuresis thus far today after receiving IV furosemide. Renal function has improved significantly from admission and there has been modest improvement in her marked bilateral peripheral edema. Continues note tenderness in both lower extremities related to the edema. Functional Status: Reports: Pain Controlled, Tolerating Diet - Review of Systems General: Reports: Weakness. Denies: Fever, Chills Pulmonary: Reports: No Symptoms Cardiovascular: Reports: Edema. Denies: Chest Pain, Palpitations, Dyspnea on Exertion, Orthopnea, PND Gastrointestinal: Reports: No Symptoms - Patient Data Vitals - Most Recent: Last Vital Signs Temp 97.6 F 09/25/17 15:00 Pulse 71 09/25/17 15:00 Resp 16 09/25/17 15:00 BP 147/120 H 09/25/17 15:00 Pulse Ox 97 09/25/17 15:00 Weight - Most Recent: 198 lb 6.4 oz I&O - Last 24 Hours: Intake & Output 09/25/17 09/25/17 09/25/17 06:59 14:59 22:59 Intake Total 300 600 Output Total 1100 1900 450 Balance -800 -1300 -450 Lab Results Last 24 Hours: Laboratory Results - last 24 hr 09/25/17 09/25/17 Range/Units 09:26 09:26 Sodium 130 L (140-148) mmol/L Potassium 5.4 H (3.6-5.2) mmol/L Chloride 98 L (100-108) mmol/L Carbon Dioxide 27 (21-32) mmol/L Anion Gap 10.4 (5.0-14.0) mmol/L BUN 23 H D (7-18) mg/dL Creatinine 0.8 D (0.6-1.0) mg/dL Est Cr Clr Drug Dosing 42.30 mL/min Estimated GFR (MDRD) > 60 (>60) Glucose 165 H (74-106) mg/dL Calcium 9.1 (8.5-10.1) mg/dL Magnesium 1.7 L (1.8-2.4) mg/dL Med Orders - Current: Current Medications Acetaminophen (Tylenol) 650 mg PO Q4H PRN PRN Reason: Pain (Mild 1-3)/fever Aspirin (Halfprin) 81 mg PO DAILY [facility] Last Admin: 09/25/17 10:30 Dose: 81 mg Carbidopa/Levodopa (Sinemet 25-100 Mg) 1 tab PO BEDTIME [facility] Last Admin: 09/24/17 20:35 Dose: 1 tab Enoxaparin Sodium (Lovenox) 40 mg SUBCUT DAILY [facility] Hydromorphone HCl (Dilaudid) 0.5 mg IVPUSH Q2H PRN PRN Reason: Pain Last Admin: 09/25/17 17:00 Dose: 0.5 mg Ceftriaxone Sodium 1 gm/ (Sodium Chloride) 50 mls @ 100 mls/hr IV Q24H [facility] Last Admin: 09/24/17 19:42 Dose: 100 mls/hr Magnesium Sulfate 2 gm/ Premix 50 mls @ 25 mls/hr IV ONETIME ONE Stop: 09/25/17 18:59 Last Admin: 09/25/17 17:04 Dose: 25 mls/hr Latanoprost (Xalatan 0.005% Ophth Soln) 0 ml EYEBOTH BEDTIME [facility] Last Admin: 09/24/17 20:34 Dose: 1 drop Magnesium Oxide (Magnesium Oxide) 400 mg PO BID [facility] Metoprolol Tartrate (Lopressor) 50 mg PO BID [facility] Last Admin: 09/25/17 10:30 Dose: 50 mg Betoptic S 0.25% (Ophth Susp (Ptom)) 0 drop EYEBOTH BID [facility] Last Admin: 09/25/17 14:57 Dose: 1 drop Ondansetron HCl (Zofran Odt) 4 mg PO Q6H PRN PRN Reason: Nausea able to take PO Oxcarbazepine (Trileptal) 300 mg PO BID PRN PRN Reason: Pain Oxycodone/Acetaminophen (Percocet 325-5 Mg) 1 - 2 tab PO Q4H PRN PRN Reason: Pain Last Admin: 09/25/17 14:54 Dose: 2 tab Pantoprazole Sodium (Protonix) 40 mg PO ACBREAKFAST [facility] Last Admin: 09/25/17 08:26 Dose: 40 mg Polyethylene Glycol (Miralax) 17 gm PO DAILY PRN PRN Reason: Constipation Pramipexole Dihydrochloride (Mirapex) 0.5 mg PO BEDTIME [facility] Last Admin: 09/24/17 20:35 Dose: 0.5 mg Senna/Docusate Sodium (Senna Plus) 1 tab PO BID PRN PRN Reason: Constipation Last Admin: 09/23/17 22:20 Dose: 1 tab Simvastatin (Zocor) 10 mg PO BEDTIME [facility] Last Admin: 09/24/17 20:34 Dose: 10 mg Sodium Chloride (Saline Flush) 10 ml FLUSH ASDIRECTED PRN PRN Reason: Keep Vein Open Last Admin: 09/23/17 19:49 Dose: 10 ml Discontinued Medications Enoxaparin Sodium (Lovenox) 30 mg SUBCUT DAILY [facility] Last Admin: 09/25/17 11:01 Dose: Not Given Furosemide (Lasix) 40 mg IVPUSH NOW ONE Stop: 09/25/17 09:31 Last Admin: 09/25/17 10:46 Dose: 40 mg Sodium Chloride (Normal Saline) 1,000 mls @ 125 mls/hr IV ASDIRECTED [facility] Last Admin: 09/24/17 04:51 Dose: 125 mls/hr Influenza Virus Vaccine (Pharmacy To Dose - Influenza Vaccine) 1 each IM ONETIME ONE Stop: 09/24/17 09:01 Influenza Virus Vaccine (Fluzone High-Dose 2016-18) 180 mcg IM .ONCE ONE Stop: 09/24/17 10:01 Last Admin: 09/24/17 13:47 Dose: 180 mcg Oxycodone/Acetaminophen (Percocet 325-5 Mg) 1 tab PO ONETIME ONE Stop: 09/23/17 19:43 Last Admin: 09/23/17 19:51 Dose: 1 tab Oxycodone/Acetaminophen (Percocet 325-5 Mg) 1 tab PO Q4H PRN PRN Reason: Pain Timolol Maleate (Timoptic 0.25% Ophth Soln) 1 ml EYEBOTH BID [facility] Last Admin: 09/23/17 23:47 Dose: Not Given - Exam General: Alert, Oriented, Cooperative, Mild Distress Lungs: Clear to Auscultation, Normal Respiratory Effort Cardiovascular: Regular Rate, Regular Rhythm, No Murmurs GI/Abdominal Exam: Normal Bowel Sounds, Soft, Non-Tender, No Organomegaly, No Distention Extremities: Pedal Edema, Other (Tenderness related to edema) Skin: Warm, Dry - Problem List Review Problem List Initiated/Reviewed/Updated: Yes - My Orders Last 24 Hours: My Active Orders 09/25/17 17:00 Magnesium Sulfate/Water [Magnesium Sulfate 2 GM in Water 50 ML] 2 gm Premix Bag 1 bag IV ONETIME 09/25/17 21:00 Magnesium Oxide 400 mg PO BID 09/26/17 05:00 BASIC METABOLIC PANEL,BMP [CHEM] Timed MAGNESIUM [CHEM] Timed 09/26/17 08:00 Furosemide [Lasix] 40 mg IVPUSH NOW ONE - Plan Plan:: ASSESSMENT AND PLAN - Acute cystitis - no evidence for sepsis, urine culture growing pansensitive Escherichia coli -Ceftriaxone, plan to convert to oral antibiotic therapy tomorrow -Saline lock IV Acute kidney injury - renal function is back to baseline -Repeat labs in a.m. -Saline lock IV Hyperkalemia - resolved Hyponatremia -improved following hydration -Repeat labs in the morning Chronic lower extremity edema with venous stasis dermatitis, bilateral - long- standing issue with lower extremity edema. Modest improvement with diuresis today -Local wound care with Aquacel -2 g sodium diet -Repeat IV Lasix in a.m. -Keep legs wrapped and elevated while sitting or in bed Maintenance issues - - DVT prophylaxis - enoxaparin - GI prophylaxis - PPI - Nutrition - low sodium diet - Bhardwaj catheter - not indicated CODE STATUS - DNR/DNI Admission justification - This patient will be admitted for inpatient services and is medically appropriate meeting medical necessity for inpatient admission as outlined in my documentation. I reasonably expect the patient will require inpatient services that span a period time over 2 midnights. I reasonably expect this patient to be discharged or transferred within 96 hours [facility] Disposition - anticipate discharge to home after the hospital stay Primary care physician - Donita Peralta NP
[2017-09-25] MEDS: cefTRIAXone 1 GM in Sodium Chloride 0.9% 50 ML IV SCH (20:19)
[2017-09-25] MEDS: Simvastatin 20 MG Tab PO SCH (20:23)
[2017-09-25] MEDS: Magnesium Oxide 400 MG Tab PO SCH (20:24)
[2017-09-25] MEDS: Carbidopa/Levodopa 25-100 MG Tab PO SCH (20:24)
[2017-09-25] MEDS: Latanoprost 0.005% Ophth Soln 2.5 ML Bottle EYEBOTH SCH (20:25)
[2017-09-25] MEDS: Pramipexole 0.5 MG Tab PO SCH (20:31)
[2017-09-26] MEDS: Acetaminophen/oxyCODONE 325-5 MG Tab PO PRN ×3 (00:37→09:08)
[2017-09-26 07:23] VITALS: BP 132/58
[2017-09-26] MEDS: Pantoprazole 40 MG Tab.CR PO SCH (07:49)
[2017-09-26] MEDS ORDERED: Furosemide 40 MG/4 ML VIAL IVPUSH ONE (08:00)
[2017-09-26] MEDS: BETOPTIC S 0.25% EYEBOTH SCH (08:46)
[2017-09-26] MEDS: Aspirin 81 MG Tab.EC PO SCH (08:47)
[2017-09-26] MEDS: Metoprolol Tartrate 50 MG Tab PO SCH (08:47)
[2017-09-26] MEDS: Magnesium Oxide 400 MG Tab PO SCH (08:48)
[2017-09-26] MEDS ORDERED: Enoxaparin 40 MG/0.4 ML Syringe SUBCUT SCH (09:00)
[2017-09-26] MEDS: HYDROmorphone 0.5 MG/0.5 ML Syringe IVPUSH PRN (11:34)
--- NOTE | 2017-09-26 12:01 | PCM.DCSUM1 ---
Discharge Summary - Hospital Course Brief History: Ms Colin is a 76-year-old woman who was admitted through the emergency department with severe weakness secondary to significant bilateral lower extremity lymphedema as well as urinary tract infection. - Discharge Data Discharge Date: 09/26/17 Discharge Disposition: DC/Tfer to SNF 03 Condition: Fair - Discharge Diagnosis/Problem(s) (1) UTI, Urinary tract infectious disease SNOMED Code(s): 67310751 ICD Code: N39.0 - URINARY TRACT INFECTION, SITE NOT SPECIFIED Status: Acute Current Visit: Yes (2) Dehydration SNOMED Code(s): 03839208 ICD Code: E86.0 - DEHYDRATION Status: Acute Current Visit: Yes (3) Acute kidney injury SNOMED Code(s): 18683429 ICD Code: N17.9 - ACUTE KIDNEY FAILURE, UNSPECIFIED Status: Acute Current Visit: Yes (4) Hyponatremia SNOMED Code(s): 39825286 ICD Code: E87.1 - HYPO-OSMOLALITY AND HYPONATREMIA Status: Acute Current Visit: Yes (5) Bilateral lower extremity edema SNOMED Code(s): 670872041 ICD Code: R60.0 - LOCALIZED EDEMA Status: Acute Current Visit: Yes (6) Stasis dermatitis of both legs SNOMED Code(s): 94316211 ICD Code: I87.2 - VENOUS INSUFFICIENCY (CHRONIC) (PERIPHERAL) Status: Acute Current Visit: Yes (7) Type 2 diabetes mellitus SNOMED Code(s): 87745851 ICD Code: E11.9 - TYPE 2 DIABETES MELLITUS WITHOUT COMPLICATIONS Status: Chronic Current Visit: No - Patient Summary/Data Consults: Consultations 09/24/17 07:00 PT Evaluation and Treatment [CONS] Routine Please Evaluate and Treat. PT Reason for Consult: Other (Type Response) Special Instructions: Lymphedema This query below is only for informational purposes and is not editable. Hospital Course: Ms. Colin is a 76-year-old woman who was admitted through the emergency department with marked weakness and dehydration. She has had a progressive history of severe bilateral lower extremity lymphedema with poor mobility. Also on evaluation was found to have underlying urinary tract infection. Renal function was significantly worse than baseline with evidence of acute kidney injury likely secondary to dehydration and intravascular volume depletion. She initially was given IV fluids and with this her renal function improved and was back to baseline by the time of discharge. Urine culture was obtained at the time of admission and she was started on IV antibiotic therapy with Rocephin. Electrolytes were compromise and she was given IV and oral potassium as well as magnesium replacement. As renal function improved she was started back on diuretic therapy and had good diuresis with good improvement in her peripheral edema prior to discharge. Urine culture returned positive for Escherichia coli which was pansensitive. She will be discharged back to the correction on additional 4 days of oral antibiotic therapy with Septra DS twice daily. Because of her profound weakness it was felt that she was unable to return home safely and she will be admitted to the correction for restorative physical therapy and occupational therapy. Her leg should be kept elevated when sitting or in bed and she should remain on a strict 2 g sodium diet. Activity will be as tolerated and leg pumps for her lymphedema will be used daily. Follow-up labs will be ordered in one week including a BMP and magnesium level. - Patient Instructions Diet: Low Sodium, Diabetic Diet Activity: As Tolerated Other/Special Instructions: Daily physical therapy and occupational therapy while at the correction. Use bilateral leg pumps daily as instructed while at the correction. - Discharge Plan Prescriptions/Med Rec: Magnesium Oxide 400 mg PO BID #60 tablet Sulfamethoxazole/Trimethoprim [Septra DS] 1 each PO BID #8 tab Home Medications: Home Meds Ammonium Lactate [Lac-Hydrin 12% Crm] 0 gm TOP BID 04/06/15 [History] Aspirin [Halfprin] 81 mg PO DAILY 04/06/15 [History] Betaxolol [Betoptic S 0.25% Ophth Susp] 1 drop EYEBOTH BID 04/06/15 [History] Calcium Carbonate [Oyster Shell Calcium] 500 mg PO DAILY 04/06/15 [History] Carbidopa/Levodopa [Carbidopa-Levodopa 25-100 Tab] 1 each PO BEDTIME 04/06/15 [ History] Furosemide 40 mg PO DAILY 04/06/15 [History] Losartan [Cozaar] 100 mg PO DAILY 04/06/15 [History] Metoprolol Tartrate 50 mg PO BID 04/06/15 [History] Multivitamin with Minerals [Multiple Vitamin] 1 tab PO DAILY 04/06/15 [History] OXcarbazepine [Oxcarbazepine] 300 mg PO BID PRN 04/06/15 [History] Omeprazole 20 mg PO DAILY 04/06/15 [History] Pramipexole [Mirapex] 0.5 mg PO BEDTIME 04/06/15 [History] metFORMIN HCl [Metformin HCl] 250 mg PO BID 04/06/15 [History] Latanoprost [Xalatan 0.005% Ophth Soln] 1 drop EYEBOTH BEDTIME 05/30/17 [History ] Ubidecarenone [Coenzyme Q10] 100 mg PO DAILY 05/30/17 [History] Simvastatin 10 mg PO DAILY 05/31/17 [History] Acetaminophen/oxyCODONE [Percocet 325-5 MG] 1 tab PO Q4HR PRN 09/23/17 [History] Betaxolol [Betoptic S 0.25% Ophth Susp] 1 drop TOP BID 09/23/17 [History] Clindamycin HCl [Cleocin] 1 tab PO TID 09/23/17 [History] Hydrocortisone [Hydrocortisone 0.5% Crm] 1 ml TOP BID 09/23/17 [History] Magnesium Oxide 400 mg PO BID #60 tablet 09/26/17 [Rx] Sulfamethoxazole/Trimethoprim [Septra DS] 1 each PO BID #8 tab 09/26/17 [Rx] Patient Handouts: Low-Sodium Eating Plan Referrals: PCP,None [Primary Care Provider] - - Patient Data Vitals - Most Recent: Last Vital Signs Temp 97.2 F 09/26/17 07:22 Pulse 59 L 09/26/17 08:47 Resp 12 09/26/17 07:22 BP 132/58 L 09/26/17 09:07 Pulse Ox 98 09/26/17 07:22 Weight - Most Recent: 197 lb I&O - Last 24 hours: Intake & Output 09/25/17 09/26/17 09/26/17 22:59 06:59 14:59 Intake Total 100 400 Output Total 800 800 900 Balance -700 -800 -500 Lab Results - Last 24 hrs: Laboratory Results - last 24 hr 09/26/17 Range/Units 06:09 Sodium 130 L (140-148) mmol/L Potassium 5.1 (3.6-5.2) mmol/L Chloride 97 L (100-108) mmol/L Carbon Dioxide 29 (21-32) mmol/L Anion Gap 9.1 (5.0-14.0) mmol/L BUN 15 (7-18) mg/dL Creatinine 0.7 (0.6-1.0) mg/dL Est Cr Clr Drug Dosing 48.34 mL/min Estimated GFR (MDRD) > 60 (>60) Glucose 104 (74-106) mg/dL Calcium 8.8 (8.5-10.1) mg/dL Magnesium 1.8 (1.8-2.4) mg/dL Med Orders - Current: Current Medications Acetaminophen (Tylenol) 650 mg PO Q4H PRN PRN Reason: Pain (Mild 1-3)/fever Aspirin (Halfprin) 81 mg PO DAILY [facility] Last Admin: 09/26/17 08:47 Dose: 81 mg Carbidopa/Levodopa (Sinemet 25-100 Mg) 1 tab PO BEDTIME [facility] Last Admin: 09/25/17 20:24 Dose: 1 tab Enoxaparin Sodium (Lovenox) 40 mg SUBCUT DAILY [facility] Last Admin: 09/26/17 08:48 Dose: 40 mg Hydromorphone HCl (Dilaudid) 0.5 mg IVPUSH Q2H PRN PRN Reason: Pain Last Admin: 09/26/17 11:34 Dose: 0.5 mg Ceftriaxone Sodium 1 gm/ (Sodium Chloride) 50 mls @ 100 mls/hr IV Q24H [facility] Last Admin: 09/25/17 20:19 Dose: 100 mls/hr Latanoprost (Xalatan 0.005% Ophth Soln) 0 ml EYEBOTH BEDTIME [facility] Last Admin: 09/25/17 20:25 Dose: 1 drop Magnesium Oxide (Magnesium Oxide) 400 mg PO BID [facility] Last Admin: 09/26/17 08:48 Dose: 400 mg Metoprolol Tartrate (Lopressor) 50 mg PO BID [facility] Last Admin: 09/26/17 08:47 Dose: 50 mg Betoptic S 0.25% (Ophth Susp (Ptom)) 0 drop EYEBOTH BID [facility] Last Admin: 09/26/17 08:46 Dose: 1 drop Ondansetron HCl (Zofran Odt) 4 mg PO Q6H PRN PRN Reason: Nausea able to take PO Oxcarbazepine (Trileptal) 300 mg PO BID PRN PRN Reason: Pain Last Admin: 09/26/17 08:45 Dose: 300 mg Oxycodone/Acetaminophen (Percocet 325-5 Mg) 1 - 2 tab PO Q4H PRN PRN Reason: Pain Last Admin: 09/26/17 09:08 Dose: 2 tab Pantoprazole Sodium (Protonix) 40 mg PO ACBREAKFAST [facility] Last Admin: 09/26/17 07:49 Dose: 40 mg Polyethylene Glycol (Miralax) 17 gm PO DAILY PRN PRN Reason: Constipation Last Admin: 09/26/17 08:10 Dose: 17 gm Pramipexole Dihydrochloride (Mirapex) 0.5 mg PO BEDTIME [facility] Last Admin: 09/25/17 20:31 Dose: 0.5 mg Senna/Docusate Sodium (Senna Plus) 1 tab PO BID PRN PRN Reason: Constipation Last Admin: 09/26/17 08:10 Dose: 1 tab Simvastatin (Zocor) 10 mg PO BEDTIME [facility] Last Admin: 09/25/17 20:23 Dose: 10 mg Sodium Chloride (Saline Flush) 10 ml FLUSH ASDIRECTED PRN PRN Reason: Keep Vein Open Last Admin: 09/23/17 19:49 Dose: 10 ml Discontinued Medications Enoxaparin Sodium (Lovenox) 30 mg SUBCUT DAILY [facility] Last Admin: 09/25/17 11:01 Dose: Not Given Furosemide (Lasix) 40 mg IVPUSH NOW ONE Stop: 09/25/17 09:31 Last Admin: 09/25/17 10:46 Dose: 40 mg Furosemide (Lasix) 40 mg IVPUSH NOW ONE Stop: 09/26/17 08:01 Last Admin: 09/26/17 09:07 Dose: 40 mg Sodium Chloride (Normal Saline) 1,000 mls @ 125 mls/hr IV ASDIRECTED [facility] Last Admin: 09/24/17 04:51 Dose: 125 mls/hr Magnesium Sulfate 2 gm/ Premix 50 mls @ 25 mls/hr IV ONETIME ONE Stop: 09/25/17 18:59 Last Admin: 09/25/17 17:04 Dose: 25 mls/hr Influenza Virus Vaccine (Pharmacy To Dose - Influenza Vaccine) 1 each IM ONETIME ONE Stop: 09/24/17 09:01 Influenza Virus Vaccine (Fluzone High-Dose 2016-) 180 mcg IM .ONCE ONE Stop: 09/24/17 10:01 Last Admin: 09/24/17 13:47 Dose: 180 mcg Oxycodone/Acetaminophen (Percocet 325-5 Mg) 1 tab PO ONETIME ONE Stop: 09/23/17 19:43 Last Admin: 09/23/17 19:51 Dose: 1 tab Oxycodone/Acetaminophen (Percocet 325-5 Mg) 1 tab PO Q4H PRN PRN Reason: Pain Timolol Maleate (Timoptic 0.25% Ophth Soln) 1 ml EYEBOTH BID [facility] Last Admin: 09/23/17 23:47 Dose: Not Given *Q Meaningful Use (DIS) - VTE *Q VTE Criteria *Q: VTE Mechanical Contraindications *Q: Bilateral Lower Dermatits - Stroke *Q Stroke Criteria *Q: - AMI *Q AMI Criteria *Q:
== END 2017-09-26 11:45 | DRG 690 ==
LOC: JP.ED 17:18 → JP.MS 19:27
PROVIDERS: ADMIT Internal Medicine; ATTEND Internal Medicine
DX: N39.0 Urinary tract infection, site not specified (principal); E87.1 Hypo-osmolality and hyponatremia; N17.9 Acute kidney failure, unspecified; B96.20 Unspecified Escherichia coli [E. coli] as the cause of diseases classified elsewhere; E86.0 Dehydration; I10 Essential (primary) hypertension; E87.5 Hyperkalemia; R60.0 Localized edema; Z66 Do not resuscitate; R53.83 Other fatigue; R53.1 Weakness; I89.0 Lymphedema, not elsewhere classified; I87.2 Venous insufficiency (chronic) (peripheral); Z23 Encounter for immunization; E78.00 Pure hypercholesterolemia, unspecified; K21.9 Gastro-esophageal reflux disease without esophagitis; M54.9 Dorsalgia, unspecified; G89.29 Other chronic pain; G25.81 Restless legs syndrome; E11.9 Type 2 diabetes mellitus without complications; Z79.82 Long term (current) use of aspirin; Z79.84 Long term (current) use of oral hypoglycemic drugs; Z88.8 Allergy status to other drugs, medicaments and biological substances
CPT/HCPCS: 36415; 80048; 80053; 81001; 83735; 83880; 85025; 85027; 87086; 87088; 87186; 90662; 96365; 97162-GP; 97530-GP; 99284; 99285-25; A9270-GY; G0008; J0696; J1170; J1650; J1940; J3475; J7040; J7050

== ENCOUNTER 2020-05-23 09:41 | Inpatient (IN) | payer MEDICARE, BC ==
[2020-05-23] MEDS ORDERED: fentaNYL 100 MCG/2 ML SDV IVPUSH ONE (10:34)
[2020-05-23] MEDS ORDERED: Sodium Chloride 0.9% 10 ML Syringe FLUSH PRN ×2 (10:34→16:07)
--- NOTE | 2020-05-23 10:41 | EDM.PDOC ---
ED HPI GENERAL MEDICAL PROBLEM - General Chief Complaint: Upper Extremity Injury/Pain Stated Complaint: FELL AND INJURED LT SHOULDER/ARM Time Seen by Provider: 05/23/20 10:28 Source of Information: Reports: Patient, Family, RN Notes Reviewed History Limitations: Reports: No Limitations - History of Present Illness INITIAL COMMENTS - FREE TEXT/NARRATIVE: 79-year-old female presents emergency department with a following a fall at home, she fell yesterday landed predominantly on her left shoulder unfortunately she laid on the floor for about 6 hours before help arrived. She is complaining of left shoulder pain arm pain with some chest discomfort she states it is harder to breathe since this morning no nausea vomiting no headache no neck pain she did not lose consciousness with this fall - Related Data Allergies Allergy/AdvReac Type Severity Reaction Status Date / Time brinzolamide Allergy Cannot Verified 05/23/20 10:00 Remember timolol maleate Allergy Cannot Verified 05/23/20 10:00 [From Timoptic] Remember Home Meds: Home Meds Aspirin [Halfprin] 81 mg PO DAILY 04/06/15 [History] Carbidopa/Levodopa [Carbidopa-Levodopa 25-100 Tab] 1 each PO BEDTIME 04/06/15 [History] Furosemide 60 mg PO DAILY 04/06/15 [History] Losartan [Cozaar] 100 mg PO DAILY 04/06/15 [History] Metoprolol Tartrate 50 mg PO BID 04/06/15 [History] Multivitamin with Minerals [Multiple Vitamin] 1 tab PO DAILY 04/06/15 [History] OXcarbazepine [Oxcarbazepine] 300 mg PO BID PRN 04/06/15 [History] Omeprazole 20 mg PO BID 04/06/15 [History] metFORMIN HCl [Metformin HCl] 500 mg PO BID 04/06/15 [History] Latanoprost [Xalatan 0.005% Ophth Soln] 1 drop EYEBOTH BEDTIME 05/30/17 [History] Betaxolol [Betoptic S 0.25% Ophth Susp] 1 drop EYEBOTH BID 09/23/17 [History] Ammonium Lactate [Lac-Hydrin 12% Crm] 1 appful TOP ASDIRECTED 05/01/19 [History] Pramipexole [Mirapex] 1 tab PO DAILY 05/01/19 [History] Past Medical History HEENT History: Reports: Cataract Cardiovascular History: Reports: High Cholesterol, Hypertension Gastrointestinal History: Reports: GERD, Hiatal Hernia PROTOTYPER History: Reports: Musculoskeletal History: Reports: Back Pain, Chronic, Fracture, Neck Pain, Chronic Other Musculoskeletal History: compression fractures of the spine, restless leg Endocrine/Metabolic History: Reports: Diabetes, Type II, Obesity/BMI 30+ Dermatologic History: Reports: Decubitus Ulcer - Past Surgical History Head Surgeries/Procedures: Reports: None HEENT Surgical History: Reports: Cataract Surgery, Eye Surgery, Naso-Sinus Surgery Other HEENT Surgeries/Procedures: glacoma surgery nasal surgery Cardiovascular Surgical History: Reports: None GI Surgical History: Reports: Appendectomy, Cholecystectomy, Colonoscopy, EGD Endocrine Surgical History: Reports: None Neurological Surgical History: Reports: Lumbar Spine Other Neurological Surgeries/Procedures: kyphoplasty Musculoskeletal Surgical History: Reports: None Dermatological Surgical History: Reports: None Social & Family History - Family History Family Medical History: Noncontributory - Tobacco Use Smoking Status *Q: Never Smoker Second Hand Smoke Exposure: No - Caffeine Use Caffeine Use: Reports: Coffee Caffeine Use Comment: 2-3cups a day - Recreational Drug Use Recreational Drug Use: No Review of Systems - Review of Systems Review Of Systems: See Below Constitutional: Reports: No Symptoms Eyes: Reports: No Symptoms Ears: Reports: No Symptoms Nose: Reports: No Symptoms Mouth/Throat: Reports: No Symptoms Respiratory: Reports: Shortness of Breath Cardiovascular: Reports: Chest Pain GI/Abdominal: Reports: No Symptoms Genitourinary: Reports: No Symptoms Musculoskeletal: Reports: Shoulder Pain, Arm Pain Skin: Reports: Bruising Neurological: Reports: No Symptoms ED EXAM, GENERAL - Physical Exam Exam: See Below Free Text/Narrative:: General: Female, not in any distress, alert and oriented x3 HEENT: head is atraumatic normocephalic, eyes pupil equal round reactive to light on the right, left has a cataract, sclera clear no conjunctivitis appreciated. Ears tympanic membranes clear and moralez landmarks and light reflex are present bilaterally canals are clear. Nose no septal deviation, nares are clear, no blood present. Mouth mucosa is moist and pink no erythema or exudate noted in soft palate, tongue is midline uvula is midline, dentition is intact. Neck: Supple no thyromegaly no tracheal deviation. NO posterior midline C-spine tenderness NO evidence of intoxication GCS > 14 No focal neurological deficit NO distracting injury Nodes: Cervical nodes subclavicular nodes nontender no palpable lymphadenopathy noted. Lungs: clear to auscultation bilaterally with symmetrical respirations, no adventitious noise appreciated. CV: Regular rate and rhythm S1 and S2 appreciated no murmurs rubs or gallops noted. Abdomen: Soft, nontender, no palpable masses or organomegaly appreciated, no distention no guarding bowel sounds are present, [scars ]. Neuro: GCS 15 Skin: Significant bruising is appreciated over the left shoulder, the left shoulder does have deformity concerning for collarbone fracture she is tender to palpation over the left shoulder tender to palpation on the left humerus there is no tenderness at the elbow or wrist no tenderness right shoulder elbow or wrist pelvic rocks is negative no tenderness knees no tenderness at the ankles Extremities: No lower extremity edema appreciated, Course - Vital Signs Last Recorded V/S: Last Vital Signs Temp 97.6 F 05/23/20 10:04 Pulse 62 05/23/20 10:04 Resp 16 05/23/20 10:04 BP 113/62 05/23/20 10:04 Pulse Ox 95 05/23/20 10:04 - Orders/Labs/Meds Orders: Active Orders 24 hr Category Date Time Status Peripheral IV Care [RC] . DIRECTED Care 05/23/20 10:35 Active Sodium Chloride 0.9% [Normal Saline] 1,000 ml Med 05/23/20 10:45 Active IV ASDIRECTED Sodium Chloride 0.9% [Saline Flush] Med 05/23/20 10:34 Active 10 ml FLUSH ASDIRECTED PRN Peripheral IV Insertion Adult [OM.PC] Urgent Oth 05/23/20 10:34 Ordered Medication Orders Sodium Chloride (Normal Saline) 1,000 mls @ 125 mls/hr IV ASDIRECTED NAREN Last Admin: 05/23/20 10:51 Dose: 125 mls/hr Documented by: HEMAL Sodium Chloride (Saline Flush) 10 ml FLUSH ASDIRECTED PRN PRN Reason: Keep Vein Open Labs: Laboratory Tests 05/23/20 05/23/20 05/23/20 Range/Units 10:50 10:50 10:50 WBC 5.3 (4.5-11.0) K/uL RBC 4.66 (3.30-5.50) M/uL Hgb 12.8 (12.0-15.0) g/dL Hct 37.1 (36.0-48.0) % MCV 80 (80-98) fL MCH 28 (27-31) pg MCHC 35 (32-36) % Plt Count 381 (150-400) K/uL Neut % (Auto) 66 (36-66) % Lymph % (Auto) 19 L (24-44) % [place] % (Auto) 12 H (2-6) % Eos % (Auto) 2 (2-4) % Baso % (Auto) 1 (0-1) % Sodium 124 L (140-148) mmol/L Potassium 4.0 (3.6-5.2) mmol/L Chloride 87 L (100-108) mmol/L Carbon Dioxide 27 (21-32) mmol/L Anion Gap 14.0 (5.0-14.0) mmol/L BUN 23 H (7-18) mg/dL Creatinine 1.4 H D (0.6-1.0) mg/dL Est Cr Clr Drug Dosing 23.02 mL/min Estimated GFR (MDRD) 36 L (>60) Glucose 85 (74-106) mg/dL Lactic Acid 2.1 H (0.4-2.0) mmol/L Calcium 8.2 L (8.5-10.1) mg/dL Total Bilirubin 1.9 H D (0.2-1.0) mg/dL AST 38 H (15-37) U/L ALT 21 (12-78) U/L Alkaline Phosphatase 238 H (46-116) U/L Creatine Kinase (26-192) U/L Total Protein 7.0 (6.4-8.2) g/dL Albumin 3.0 L (3.4-5.0) g/dL Globulin 4.0 H (2.3-3.5) g/dL Albumin/Globulin Ratio 0.8 L (1.2-2.2) 05/23/20 Range/Units 13:54 WBC (4.5-11.0) K/uL RBC (3.30-5.50) M/uL Hgb (12.0-15.0) g/dL Hct (36.0-48.0) % MCV (80-98) fL MCH (27-31) pg MCHC (32-36) % Plt Count (150-400) K/uL Neut % (Auto) (36-66) % Lymph % (Auto) (24-44) % [place] % (Auto) (2-6) % Eos % (Auto) (2-4) % Baso % (Auto) (0-1) % Sodium (140-148) mmol/L Potassium (3.6-5.2) mmol/L Chloride (100-108) mmol/L Carbon Dioxide (21-32) mmol/L Anion Gap (5.0-14.0) mmol/L BUN (7-18) mg/dL Creatinine (0.6-1.0) mg/dL Est Cr Clr Drug Dosing mL/min Estimated GFR (MDRD) (>60) Glucose (74-106) mg/dL Lactic Acid (0.4-2.0) mmol/L Calcium (8.5-10.1) mg/dL Total Bilirubin (0.2-1.0) mg/dL AST (15-37) U/L ALT (12-78) U/L Alkaline Phosphatase (46-116) U/L Creatine Kinase 133 (26-192) U/L Total Protein (6.4-8.2) g/dL Albumin (3.4-5.0) g/dL Globulin (2.3-3.5) g/dL Albumin/Globulin Ratio (1.2-2.2) Meds: Medications Generic Name Dose Route Start Last Admin Trade Name Freq PRN Reason Stop Dose Admin Sodium Chloride 1,000 mls @ 125 mls/hr 05/23/20 10:45 05/23/20 10:51 Normal Saline IV 125 mls/hr ASDIRECTED NAREN Administration Sodium Chloride 10 ml 05/23/20 10:34 Saline Flush FLUSH ASDIRECTED PRN Keep Vein Open Discontinued Medications Generic Name Dose Route Start Last Admin Trade Name Freq PRN Reason Stop Dose Admin Fentanyl 50 mcg 05/23/20 10:34 05/23/20 10:49 Sublimaze IVPUSH 05/23/20 10:35 50 mcg ONETIME ONE Administration Sodium Chloride 80 mls @ 3 mls/sec 05/23/20 10:45 Normal Saline IV 05/23/20 10:46 ASDIRECTED NAREN Sodium Chloride 75 mls @ 3 mls/sec 05/23/20 12:15 05/23/20 12:40 Normal Saline IV 05/23/20 13:00 3 mls/sec ASDIRECTED NAREN Administration Iopamidol 100 ml 05/23/20 10:45 Isovue-300 (61%) IV 05/23/20 10:46 . DIRECTED NAREN Iopamidol 100 ml 05/23/20 12:15 05/23/20 12:40 Isovue-300 (61%) IV 05/23/20 13:00 100 ml . DIRECTED NAREN Administration Sodium Chloride 10 ml 05/23/20 10:45 Saline Flush FLUSH 05/23/20 10:46 ONETIME ONE Sodium Chloride 10 ml 05/23/20 12:09 05/23/20 12:40 Saline Flush FLUSH 05/23/20 12:10 10 ml ONETIME ONE Administration Departure - Departure Time of Disposition: 14:44 Disposition: Admitted As Inpatient 65 Condition: Fair Clinical Impression: Weakness, Pulmonary embolus, left - Discharge Information Referrals: Josue Vanessa MARKET DEVELOPMENT DIRECTOR [Primary Care Provider] - Forms: ED Department Discharge Sepsis Event Note (ED) - Evaluation Sepsis Screening Result: No Definite Risk - Focused Exam Vital Signs: Vital Signs Temp Pulse Resp BP Pulse Ox 05/23/20 10:04 97.6 F 62 16 113/62 95 05/23/20 09:58 97.6 F 62 16 113/62 95 - My Orders Last 24 Hours: My Active Orders 05/23/20 10:34 Sodium Chloride 0.9% [Saline Flush] 10 ml FLUSH ASDIRECTED PRN Peripheral IV Insertion Adult [OM.PC] Urgent 05/23/20 10:35 Peripheral IV Care [RC] . DIRECTED 05/23/20 10:45 Sodium Chloride 0.9% [Normal Saline] 1,000 ml IV ASDIRECTED - Assessment/Plan Last 24 Hours: My Active Orders 05/23/20 10:34 Sodium Chloride 0.9% [Saline Flush] 10 ml FLUSH ASDIRECTED PRN Peripheral IV Insertion Adult [OM.PC] Urgent 05/23/20 10:35 Peripheral IV Care [RC] . DIRECTED 05/23/20 10:45 Sodium Chloride 0.9% [Normal Saline] 1,000 ml IV ASDIRECTED Plan: Assessment Acuity = acute Site and laterality = weakness, recent fall complicated by chronic pulmonary embolism left pulmonary artery not on anticoagulation Etiology = unknown Manifestations = dyspnea Location of injury = Home Lab values = CBC unremarkable sodium low at 124 consistent hyponatremia creatinine elevated 1.4 consistent chronic renal failure stage G3 a total bilirubin elevated 1.9 consistent hyperbilirubinemia CK normal at 133 CT scan describes a chronic left pulmonary artery embolism of unknown age, no acute fractures appreciated Plan Call discussed case hospitalist on-call at [phone] he kindly agreed to come and evaluate the patient emergency department for admission This note was dictated using [employer] voice recognition software please call with any questions on syntax or grammar.
[2020-05-23] MEDS ORDERED: Sodium Chloride 0.9% 10 ML Syringe FLUSH ONE ×2 (10:45→12:09)
[2020-05-23] MEDS ORDERED: Iopamidol 612 MG/ML 100 ML Bottle IV SCH ×2 (10:45→12:15)
[2020-05-23] MEDS ORDERED: Sodium Chloride 0.9% 1,000 ML IV SCH (10:45)
[2020-05-23] MEDS ORDERED: Sodium Chloride 0.9% 80 ML IV SCH (10:45)
[2020-05-23] MEDS ORDERED: Sodium Chloride 0.9% 75 ML IV SCH (12:15)
--- NOTE | 2020-05-23 13:24 | CRLCT ---
INDICATION: Fell. Chest trauma. TECHNIQUE: Volumetric helical scanning of the thorax was performed with 100 cc of Isovue 370 of nonionic contrast material IV. Coronal and sagittal reconstructions were obtained. COMPARISON: None. FINDINGS: No pneumothorax, hemothorax or pulmonary contusion is evident. No obvious acute fracture is demonstrated. Multiple healed and healing rib fractures are noted as well as numerous, presumably old thoracic and lumbar compression fractures. Vertebroplasties of in performed at L1 and L2. The bones are osteoporotic. A tiny pleural effusions are present bilaterally, left greater than right. Fibrotic changes in both lungs are noted, primarily in the bases. No significant airway abnormality is demonstrated. No mediastinal or hilar lymphadenopathy is demonstrated. The heart is mild to moderately enlarged. Calcified coronary arterial plaque is demonstrated. On images 37-45 of series 3, a peripheral filling defect in the posterior aspect of the left lower lobe pulmonary artery is demonstrated and is consistent with a chronic pulmonary embolus. No acute embolus is apparent. A hiatal hernia of moderate size is noted. Images of the upper abdomen are unremarkable. IMPRESSION: 1. Negative for obvious acute traumatic abnormality. 2. Osteoporosis with healed and healing rib fractures as well as numerous presumed chronic thoracic and lumbar spine compression fractures. Post L1 and L2 vertebroplasties. 3. Evidence of chronic pulmonary embolism in the left pulmonary artery. No acute embolus evident. Age 4. Tiny pleural effusions bilaterally, left greater than right. 5. Mild to moderate cardiomegaly. 6. Hiatal hernia of moderate size. Please note that all CT scans at this facility use dose modulation, iterative reconstruction, and/or weight-based dosing when appropriate to reduce radiation dose to as low as reasonably achievable. Dictated by Robbie Allen MD @ May 23 2020 1:06PM Signed by Dr. Robbie Allen @ May 23 2020 1:22PM
--- NOTE | 2020-05-23 13:47 | CRLCR ---
INDICATION: Left arm injury. [place] grade TECHNIQUE: Two views of the left humerus. COMPARISON: None. FINDINGS: No fracture or other abnormality. IMPRESSION: Negative left humerus. Dictated by Robbie Allen MD @ May 23 2020 1:44PM Signed by Dr. Robbie Allen @ May 23 2020 1:45PM
--- NOTE | 2020-05-23 15:26 | PCM.HP.2 ---
H&P History of Present Illness - General Date of Service: 05/23/20 Admit Problem/Dx: Admission Diagnosis/Problem Admission Diagnosis/Problem Peripheral edema Source of Information: Patient, Family, Old Records, Provider, RN Notes Reviewed History Limitations: Reports: No Limitations - History of Present Illness Initial Comments - Free Text/Narative: Ms. Colin is an 79-year-old woman who was admitted through the emergency department with weakness resulting in several recent falls and anasarca. Over the past few months she reports that she has become progressively more weak and has had recurrent falls. Yesterday she fell and was on the floor for a period of 6 hours. Weakness has now progressed to the point where she really is no longer able to ambulate. Also over the past several weeks she is developed increased peripheral edema both lower extremities. Edema extends up into the upper posterior thighs. Because of her fall yesterday she had significant pain in her arm and chest wall. X-ray of the humerus was obtained showing no evidence of fracture. CT scan of the chest was obtained and shows no obvious fracture but did document a chronic pulmonary embolism in the left pulmonary artery. Over time she does feel that she has become progressively more short of breath but denies any episodes of acute shortness of breath. She has not had a previous history of deep vein thrombosis or pulmonary emboli. - Related Data Allergies/Adverse Reactions: Allergies Allergy/AdvReac Type Severity Reaction Status Date / Time brinzolamide Allergy Cannot Verified 05/23/20 10:00 Remember timolol maleate Allergy Cannot Verified 05/23/20 10:00 [From Timoptic] Remember Home Medications: Home Meds Aspirin [Halfprin] 81 mg PO DAILY 04/06/15 [History] Carbidopa/Levodopa [Carbidopa-Levodopa 25-100 Tab] 1 each PO BEDTIME 04/06/15 [History] Furosemide 60 mg PO DAILY 04/06/15 [History] Losartan [Cozaar] 100 mg PO DAILY 04/06/15 [History] Metoprolol Tartrate 50 mg PO BID 04/06/15 [History] Multivitamin with Minerals [Multiple Vitamin] 1 tab PO DAILY 04/06/15 [History] OXcarbazepine [Oxcarbazepine] 300 mg PO BID PRN 04/06/15 [History] Omeprazole 20 mg PO BID 04/06/15 [History] metFORMIN HCl [Metformin HCl] 1,000 mg PO BID 04/06/15 [History] Latanoprost [Xalatan 0.005% Ophth Soln] 1 drop EYEBOTH BEDTIME 05/30/17 [History] Betaxolol [Betoptic S 0.25% Ophth Susp] 1 drop EYEBOTH BID 09/23/17 [History] Ammonium Lactate [Lac-Hydrin 12% Crm] 1 appful TOP ASDIRECTED 05/01/19 [History] Pramipexole [Mirapex] 0.5 mg PO BEDTIME 05/01/19 [History] Past Medical History HEENT History: Reports: Cataract Cardiovascular History: Reports: High Cholesterol, Hypertension Gastrointestinal History: Reports: GERD, Hiatal Hernia [employer] History: Reports: Musculoskeletal History: Reports: Back Pain, Chronic, Fracture, Neck Pain, Chr onic Other Musculoskeletal History: compression fractures of the spine, restless leg Neurological History: Reports: None Endocrine/Metabolic History: Reports: Diabetes, Type II, Obesity/BMI 30+ Dermatologic History: Reports: Decubitus Ulcer - Past Surgical History Head Surgeries/Procedures: Reports: None HEENT Surgical History: Reports: Cataract Surgery, Eye Surgery, Naso-Sinus Surgery Other HEENT Surgeries/Procedures: glacoma surgery nasal surgery Cardiovascular Surgical History: Reports: None GI Surgical History: Reports: Appendectomy, Cholecystectomy, Colonoscopy, EGD Endocrine Surgical History: Reports: None Neurological Surgical History: Reports: Lumbar Spine Other Neurological Surgeries/Procedures: kyphoplasty Musculoskeletal Surgical History: Reports: None Dermatological Surgical History: Reports: None Social & Family History - Family History Family Medical History: Noncontributory - Tobacco Use Smoking Status *Q: Never Smoker Second Hand Smoke Exposure: No - Caffeine Use Caffeine Use: Reports: Coffee Caffeine Use Comment: 2-3cups a day - Recreational Drug Use Recreational Drug Use: No H&P Review of Systems - Review of Systems: Review Of Systems: See Below General: Reports: Weakness, Fatigue. Denies: Fever, Chills HEENT: Reports: No Symptoms Pulmonary: Reports: Shortness of Breath. Denies: Wheezing, Pleuritic Chest Pain, Cough, Sputum, Hemoptysis Cardiovascular: Reports: Dyspnea on Exertion, Edema. Denies: Chest Pain, Palpitations, Orthopnea, PND, Lightheadedness Gastrointestinal: Reports: No Symptoms Genitourinary: Reports: No Symptoms Musculoskeletal: Reports: No Symptoms Skin: Reports: No Symptoms Psychiatric: Reports: No Symptoms Neurological: Reports: No Symptoms Hematologic/Lymphatic: Reports: No Symptoms Immunologic: Reports: No Symptoms Exam - Exam Exam: See Below - Vital Signs Vital Signs: Last Vital Signs Temp 97.6 F 05/23/20 10:04 Pulse 62 05/23/20 10:04 Resp 16 05/23/20 10:04 BP 113/62 05/23/20 10:04 Pulse Ox 95 05/23/20 10:04 Weight: 210 lb - Exam Quality Assessment: DVT Prophylaxis General: Alert, Oriented, Cooperative, Moderate Distress HEENT: Conjunctiva Clear, Hearing Intact, Normal Nasal Septum, Posterior Pharynx Clear, Pupils Equal. No: Mucosa Moist & [place] Neck: Supple, Trachea Midline, +2 Carotid Pulse wo Bruit Lungs: Clear to Auscultation, Normal Respiratory Effort Cardiovascular: Regular Rate, Regular Rhythm, Normal S1, Normal S2. No: S ystolic Murmur, Diastolic Murmur GI/Abdominal Exam: Soft, Non-Tender, No Organomegaly, No Distention Extremities: Pedal Edema (Severe peripheral edema extending into the posterior thighs just below the buttocks, changes of chronic venous stasis both lower extremities, worse on the left). No: Non-Tender Skin: Warm, Dry Neurological: Cranial Nerves Intact, Strength Equal Bilateral, Normal Speech, N ormal Tone, Sensation Intact. No: Focal Deficit Neuro Extensive - Mental Status: Alert, Oriented x3, Normal Mood/Affect, Normal Cognition, Memory Intact - Patient Data Lab Results Last 24 hrs: Laboratory Results - last 24 hr 05/23/20 05/23/20 05/23/20 Range/Units 10:50 10:50 10:50 WBC 5.3 (4.5-11.0) K/uL RBC 4.66 (3.30-5.50) M/uL Hgb 12.8 (12.0-15.0) g/dL Hct 37.1 (36.0-48.0) % MCV 80 (80-98) fL MCH 28 (27-31) pg MCHC 35 (32-36) % Plt Count 381 (150-400) K/uL Neut % (Auto) 66 (36-66) % Lymph % (Auto) 19 L (24-44) % [place] % (Auto) 12 H (2-6) % Eos % (Auto) 2 (2-4) % Baso % (Auto) 1 (0-1) % Sodium 124 L (140-148) mmol/L Potassium 4.0 (3.6-5.2) mmol/L Chloride 87 L (100-108) mmol/L Carbon Dioxide 27 (21-32) mmol/L Anion Gap 14.0 (5.0-14.0) mmol/L BUN 23 H (7-18) mg/dL Creatinine 1.4 H D (0.6-1.0) mg/dL Est Cr Clr Drug Dosing 23.02 mL/min Estimated GFR (MDRD) 36 L (>60) Glucose 85 (74-106) mg/dL Lactic Acid 2.1 H (0.4-2.0) mmol/L Calcium 8.2 L (8.5-10.1) mg/dL Total Bilirubin 1.9 H D (0.2-1.0) mg/dL AST 38 H (15-37) U/L ALT 21 (12-78) U/L Alkaline Phosphatase 238 H (46-116) U/L Creatine Kinase (26-192) U/L Total Protein 7.0 (6.4-8.2) g/dL Albumin 3.0 L (3.4-5.0) g/dL Globulin 4.0 H (2.3-3.5) g/dL Albumin/Globulin Ratio 0.8 L (1.2-2.2) 05/23/20 Range/Units 13:54 WBC (4.5-11.0) K/uL RBC (3.30-5.50) M/uL Hgb (12.0-15.0) g/dL Hct (36.0-48.0) % MCV (80-98) fL MCH (27-31) pg MCHC (32-36) % Plt Count (150-400) K/uL Neut % (Auto) (36-66) % Lymph % (Auto) (24-44) % [place] % (Auto) (2-6) % Eos % (Auto) (2-4) % Baso % (Auto) (0-1) % Sodium (140-148) mmol/L Potassium (3.6-5.2) mmol/L Chloride (100-108) mmol/L Carbon Dioxide (21-32) mmol/L Anion Gap (5.0-14.0) mmol/L BUN (7-18) mg/dL Creatinine (0.6-1.0) mg/dL Est Cr Clr Drug Dosing mL/min Estimated GFR (MDRD) (>60) Glucose (74-106) mg/dL Lactic Acid (0.4-2.0) mmol/L Calcium (8.5-10.1) mg/dL Total Bilirubin (0.2-1.0) mg/dL AST (15-37) U/L ALT (12-78) U/L Alkaline Phosphatase (46-116) U/L Creatine Kinase 133 (26-192) U/L Total Protein (6.4-8.2) g/dL Albumin (3.4-5.0) g/dL Globulin (2.3-3.5) g/dL Albumin/Globulin Ratio (1.2-2.2) Result Diagrams: 05/23/20 10:50 05/23/20 10:50 Sepsis Event Note - Evaluation Sepsis Screening Result: No Definite Risk - Focused Exam Vital Signs: Vital Signs Temp Pulse Resp BP Pulse Ox 05/23/20 10:04 97.6 F 62 16 113/62 95 05/23/20 09:58 97.6 F 62 16 113/62 95 Date Exam was Performed: 05/23/20 Time Exam was Performed: 15:26 *Q Meaningful Use (ADM) - VTE Risk Assess *Q Each Risk Factor Represents 1 Point: Swollen Legs, Current, Obesity ( BMI > 25 kg/m2) Total Score 1 Point Risk Factors: 2 Each Risk Factor Represents 2 Points: None Total Score 2 Point Risk Factors: 0 Each Risk Factor Represents 3 Points: Age 75 Years or Greater Total Score 3 Point Risk Factors: 3 Each Risk Factor Represents 5 Points: None Total Score 5 Point Risk Factors: 0 Venous Thromboembolism Risk Factor Score *Q: 5 Problem List Initiated/Reviewed/Updated: Yes Orders Last 24hrs: Active Orders 24 hr Category Date Time Status Patient Status Manage Transfer [TRANSFER] Routine ADT 05/23/20 15:13 Ordered Peripheral IV Care [RC] . DIRECTED Care 05/23/20 10:35 Active Sodium Chloride 0.9% [Normal Saline] 1,000 ml Med 05/23/20 10:45 Active IV ASDIRECTED Sodium Chloride 0.9% [Saline Flush] Med 05/23/20 10:34 Active 10 ml FLUSH ASDIRECTED PRN Peripheral IV Insertion Adult [OM.PC] Urgent Oth 05/23/20 10:34 Ordered Resuscitation Status Routine Resus Stat 05/23/20 15:15 Ordered Medication Orders Sodium Chloride (Normal Saline) 1,000 mls @ 125 mls/hr IV ASDIRECTED NAREN Last Admin: 05/23/20 10:51 Dose: 125 mls/hr Documented by: HEMAL Sodium Chloride (Saline Flush) 10 ml FLUSH ASDIRECTED PRN PRN Reason: Keep Vein Open Assessment/Plan Comment:: ASSESSMENT AND PLAN ANASARCA-extensive peripheral edema, both lower extremities, extending into the proximal posterior thighs. Presently she has evidence of intravascular volume depletion with increase in creatinine and mild elevation in lactic acid level indicating some dehydration. -Initiate IV diuretic therapy in a.m. -Hold oral furosemide -2 g sodium diet CHRONIC PULMONARY EMBOLI-noted on CT scan of the chest. No recent history of significant increase in shortness of breath. She does report progressive shortness of breath occurring gradually over the past few months. Plan to initiate anticoagulation, discussed risks of anticoagulation with the patient and her son who was present -Eliquis 10 mg p.o. twice daily x7 days, then 5 mg twice daily thereafter -Supplemental oxygen as needed -Venous Doppler studies both lower extremities in a.m. GENERALIZED WEAKNESS-several recent falls, progressive deterioration in overall strength over the past few months. Discussed options for management with patient and her son, they are strongly opposed to any consideration of alf placement. -PT/OT consults -Plan for discharged home with home care and home PT OT DEHYDRATION-creatinine is mildly elevated from baseline, lactic acid mildly elevated -IV fluids overnight TYPE 2 DIABETES MELLITUS -Continue metformin -4 times daily glucometers -Low-dose sliding scale Humalog MAINTENANCE ISSUES -DVT prophylaxis; current therapy with Eliquis should provide adequate DVT prophylaxis -GI prophylaxis; not indicated -Bhardwaj catheter; not indicated -Nutrition; 2 g sodium diet -Nicotine dependence; not required CODE STATUS-FULL CODE ADMISSION STATUS-patient will be admitted to inpatient status, expect at least a 2 night hospital stay for evaluation and management of problems as outlined above. At the time of this admission I do not reasonably expected evaluation and management of this problem will require more than a 96 hour hospital stay. DISPOSITION-anticipate discharge to home after the hospital stay. PRIMARY CARE PROVIDER-Josue Vanessa - Mortality Measure Prognosis:: Good
[2020-05-23] MEDS ORDERED: Glucose Gel 15 GM in 37.5 GM Tube PO PRN (16:07)
[2020-05-23] MEDS ORDERED: Polyethylene Glycol 3350 Powder 17 GM Packet PO PRN (16:07)
[2020-05-23] MEDS ORDERED: 50% Dextrose in Water 50 ML Syringe IV PRN (16:07)
[2020-05-23] MEDS: Sodium Chloride 0.9% 1,000 ML IV SCH ×2 (16:43→22:42)
[2020-05-23] MEDS: oxyCODONE 5 MG Tab PO PRN ×2 (16:44→21:09)
[2020-05-23] MEDS: Insulin Lispro 100 Unit/ML 3 ML KwikPen SUBCUT SCH ×2 (16:50→21:29)
[2020-05-23] MEDS: metFORMIN 500 MG Tab PO SCH (16:50)
[2020-05-23] MEDS ORDERED: Pantoprazole 40 MG Tab.CR PO SCH (21:00)
[2020-05-23] MEDS: Pramipexole 0.5 MG Tab PO SCH (21:18)
[2020-05-23] MEDS: Carbidopa/Levodopa 25-100 MG Tab PO SCH (21:18)
[2020-05-23] MEDS: Apixaban 5 MG Tab PO SCH (21:18)
[2020-05-23] MEDS: Metoprolol Tartrate 50 MG Tab PO SCH (21:30)
[2020-05-23] MEDS: LATANOPROST 0.005% EYEBOTH SCH (21:31)
[2020-05-23] MEDS ORDERED: Sodium Chloride 0.9% 1,000 ML IV ONE (23:15)
[2020-05-24] MEDS: oxyCODONE 5 MG Tab PO PRN ×5 (02:48→23:21)
[2020-05-24] MEDS: Insulin Lispro 100 Unit/ML 3 ML KwikPen SUBCUT SCH ×2 (07:49→15:01)
[2020-05-24] MEDS: metFORMIN 500 MG Tab PO SCH ×2 (08:07→16:49)
[2020-05-24] MEDS: Pantoprazole 40 MG Tab.CR PO SCH ×2 (08:07→16:49)
[2020-05-24] MEDS: Losartan 50 MG Tab PO SCH (08:08)
[2020-05-24] MEDS: Apixaban 5 MG Tab PO SCH ×2 (08:14→20:23)
[2020-05-24] MEDS: Aspirin 81 MG Tab.EC PO SCH (08:14)
[2020-05-24] MEDS: Metoprolol Tartrate 50 MG Tab PO SCH ×2 (08:14→20:42)
[2020-05-24] MEDS: Acetaminophen 325 MG Tab PO PRN ×4 (08:54→23:22)
[2020-05-24] MEDS: Sodium Chloride 0.9% 1,000 ML IV SCH (08:59)
--- NOTE | 2020-05-24 09:52 | US ---
VL Duplex Lwr Ext Veins Comp HISTORY: No Clinical Info FINDINGS: The deep veins of the lower extremities bilaterally demonstrate normal augmentation and compressibility. No evidence for deep venous thrombosis. IMPRESSION: Normal bilateral lower extremity venous Doppler ultrasound.
[2020-05-24] MEDS ORDERED: Potassium Chloride 20 MEQ Tab.ER PO ONE (10:00)
[2020-05-24] MEDS: Magnesium Sulfate/Water 2 GM in Premix Bag 1 BAG IV SCH ×3 (10:46→21:01)
--- NOTE | 2020-05-24 11:57 | PCM.PN ---
- General Info Date of Service: 05/24/20 Subjective Update: No acute events overnight. Patient still feels weak but feels a little better than yesterday. Legs feel tight and sore because of the swelling. She is complaining of increased left posterior shoulder and upper back pain compared to usual. She has not had any fevers. She does report today that she was recently prescribed a new antibiotic to treat a urinary tract infection that was resistant to the initial antibiotic. The antibiotic was supposed to be started 2 days ago but she has had only minimal intake of this antibiotic. An echocardiogram was obtained today and this did show right heart failure with an enlarged right ventricle and hyperdynamic left ventricle but no major valve abnormalities. Pulmonary hypertension was noted. Functional Status: Reports: Pain Controlled, Tolerating Diet - Review of Systems General: Reports: Weakness. Denies: Fever Pulmonary: Reports: Shortness of Breath - Patient Data Vitals - Most Recent: Last Vital Signs Temp 36.1 C 05/24/20 11:09 Pulse 55 L 05/24/20 11:09 Resp 16 05/24/20 11:09 BP 96/68 05/24/20 11:09 Pulse Ox 92 L 05/24/20 11:09 Weight - Most Recent: 99.4 kg I&O - Last 24 Hours: Intake & Output 05/23/20 05/24/20 05/24/20 22:59 06:59 14:59 Intake Total 120 2563 310 Output Total 250 650 200 Balance -130 1913 110 Lab Results Last 24 Hours: Laboratory Results - last 24 hr 05/23/20 05/24/20 05/24/20 Range/Units 13:54 04:15 04:15 WBC 4.3 L (4.5-11.0) K/uL RBC 4.11 (3.30-5.50) M/uL Hgb 11.4 L (12.0-15.0) g/dL Hct 33.0 L (36.0-48.0) % MCV 80 (80-98) fL MCH 28 (27-31) pg MCHC 35 (32-36) % Plt Count 309 (150-400) K/uL Neut % (Auto) 52 (36-66) % Lymph % (Auto) 30 (24-44) % [place] % (Auto) 14 H (2-6) % Eos % (Auto) 4 (2-4) % Baso % (Auto) 1 (0-1) % Sodium 127 L (140-148) mmol/L Potassium 3.7 (3.6-5.2) mmol/L Chloride 92 L (100-108) mmol/L Carbon Dioxide 27 (21-32) mmol/L Anion Gap 11.7 (5.0-14.0) mmol/L BUN 21 H (7-18) mg/dL Creatinine 1.3 H (0.6-1.0) mg/dL Est Cr Clr Drug Dosing 24.79 mL/min Estimated GFR (MDRD) 39 L (>60) Glucose 62 L (74-106) mg/dL Calcium 7.4 L (8.5-10.1) mg/dL Magnesium 1.1 L D (1.8-2.4) mg/dL Creatine Kinase 133 (26-192) U/L Med Orders - Current: Current Medications Acetaminophen (Tylenol) 650 mg PO Q4H PRN PRN Reason: Pain (Mild 1-3)/fever Last Admin: 05/24/20 08:54 Dose: 650 mg Documented by: Apixaban (Eliquis) 10 mg PO BID [facility] Stop: 05/30/20 09:01 Last Admin: 05/24/20 08:14 Dose: 10 mg Documented by: Apixaban (Eliquis) 5 mg PO BID [facility] Aspirin (Halfprin) 81 mg PO DAILY [facility] Last Admin: 05/24/20 08:14 Dose: 81 mg Documented by: Carbidopa/Levodopa (Sinemet 25-100 Mg) 1 tab PO BEDTIME [facility] Last Admin: 05/23/20 21:18 Dose: 1 tab Documented by: Dextrose (Glutose 15) 15 gm PO ONETIME PRN PRN Reason: Hypoglycemia Dextrose/Water (Dextrose 50% In Water) 50 ml IV ONETIME PRN PRN Reason: Hypoglycemia Magnesium Sulfate 2 gm/ Premix 50 mls @ 12.5 mls/hr IV Q6H [facility] Stop: 05/25/20 13:59 Last Admin: 05/24/20 10:46 Dose: 12.5 mls/hr Documented by: Latanoprost (Xalatan 0.005% Ophth Soln) 0 ml EYEBOTH BEDTIME [facility] Last Admin: 05/23/20 21:31 Dose: 1 drop Documented by: Losartan Potassium (Cozaar) 100 mg PO DAILY [facility] Last Admin: 05/24/20 08:08 Dose: 100 mg Documented by: Metformin HCl (Glucophage) 1,000 mg PO BIDMEALS [facility] Last Admin: 05/24/20 08:07 Dose: 1,000 mg Documented by: Metoprolol Tartrate (Lopressor) 50 mg PO BID [facility] Last Admin: 05/24/20 08:14 Dose: 50 mg Documented by: Betoptic-S 0.25% (Ophth Ptom) 0 drop EYEBOTH BID [facility] Ondansetron HCl (Zofran) 4 mg IV Q4H PRN PRN Reason: Nausea/Vomiting Oxcarbazepine (Trileptal) 300 mg PO BID PRN PRN Reason: Pain Oxycodone HCl (Oxycodone) 10 mg PO Q4H PRN PRN Reason: Pain (moderate 4-6) Pantoprazole Sodium (Protonix) 40 mg PO BIDAC [facility] Last Admin: 05/24/20 08:07 Dose: 40 mg Documented by: Polyethylene Glycol (Miralax) 17 gm PO DAILY PRN PRN Reason: Constipation Pramipexole Dihydrochloride (Mirapex) 0.5 mg PO BEDTIME [facility] Last Admin: 05/23/20 21:18 Dose: 0.5 mg Documented by: Sodium Chloride (Saline Flush) 10 ml FLUSH ASDIRECTED PRN PRN Reason: Keep Vein Open Discontinued Medications Fentanyl (Sublimaze) 50 mcg IVPUSH ONETIME ONE Stop: 05/23/20 10:35 Last Admin: 05/23/20 10:49 Dose: 50 mcg Documented by: Sodium Chloride (Normal Saline) 1,000 mls @ 125 mls/hr IV ASDIRECTED [facility] Last Admin: 05/23/20 10:51 Dose: 125 mls/hr Documented by: Sodium Chloride (Normal Saline) 80 mls @ 3 mls/sec IV ASDIRECTED [facility] Stop: 05/23/20 10:46 Sodium Chloride (Normal Saline) 75 mls @ 3 mls/sec IV ASDIRECTED [facility] Stop: 05/23/20 13:00 Last Admin: 05/23/20 12:40 Dose: 3 mls/sec Documented by: Sodium Chloride (Normal Saline) 1,000 mls @ 100 mls/hr IV ASDIRECTED [facility] Last Admin: 05/24/20 08:59 Dose: 100 mls/hr Documented by: Sodium Chloride (Normal Saline) 1,000 mls @ 500 mls/hr IV ONETIME ONE Stop: 05/24/20 01:14 Last Admin: 05/23/20 23:19 Dose: 500 mls/hr Documented by: Insulin Human Lispro (Humalog) 0 unit SUBCUT QIDACANDBED [facility]; Protocol Last Admin: 05/24/20 07:49 Dose: Not Given Documented by: Iopamidol (Isovue-300 (61%)) 100 ml IV . DIRECTED [facility] Stop: 05/23/20 10:46 Iopamidol (Isovue-300 (61%)) 100 ml IV . DIRECTED [facility] Stop: 05/23/20 13:00 Last Admin: 05/23/20 12:40 Dose: 100 ml Documented by: Oxycodone HCl (Oxycodone) 5 mg PO Q4H PRN PRN Reason: Pain (moderate 4-6) Last Admin: 05/24/20 07:20 Dose: 5 mg Documented by: Pantoprazole Sodium (Protonix) 40 mg PO BID [facility] Last Admin: 05/23/20 21:18 Dose: 40 mg Documented by: Potassium Chloride (Klor-Con M20) 40 meq PO ONETIME ONE Stop: 05/24/20 10:01 Last Admin: 05/24/20 10:45 Dose: 40 meq Documented by: Sodium Chloride (Saline Flush) 10 ml FLUSH ASDIRECTED PRN PRN Reason: Keep Vein Open Sodium Chloride (Saline Flush) 10 ml FLUSH ONETIME ONE Stop: 05/23/20 10:46 Last Admin: 05/23/20 20:06 Dose: Not Given Documented by: Sodium Chloride (Saline Flush) 10 ml FLUSH ONETIME ONE Stop: 05/23/20 12:10 Last Admin: 05/23/20 12:40 Dose: 10 ml Documented by: - Exam Quality Assessment: No: Supplemental Oxygen General: Alert, Oriented, Cooperative, No Acute Distress Lungs: Normal Respiratory Effort, Decreased Breath Sounds (both bases). No: Crackles Cardiovascular: Regular Rate, Regular Rhythm, Gallops GI/Abdominal Exam: Soft, No Distention Extremities: Pedal Edema. No: Increased Warmth Skin: Warm, Dry, Other (chronic venous stasis discoloration both lower legs from ankle to midshin ) Psy/Mental Status: Alert, Normal Affect Sepsis Event Note - Evaluation Sepsis Screening Result: No Definite Risk - Focused Exam Vital Signs: Vital Signs Temp Temp Pulse Pulse Pulse Resp BP 05/24/20 11:09 36.1 C 55 L 16 05/24/20 08:14 36.2 C 73 73 18 104/58 L 05/24/20 08:08 104/58 L 05/24/20 02:43 36.1 C 65 16 BP BP Pulse Ox 05/24/20 11:09 96/68 92 L 05/24/20 08:14 104/58 L 95 05/24/20 08:08 05/24/20 02:43 95/66 92 L Date Exam was Performed: 05/24/20 Time Exam was Performed: 15:17 - Problem List Review Problem List Initiated/Reviewed/Updated: Yes - My Orders Last 24 Hours: My Active Orders 05/24/20 08:45 Echo Comp wo Cont [US] Routine 05/24/20 08:46 UA W/MICROSCOPIC [URIN] Routine 05/24/20 10:00 Magnesium Sulfate/Water [Magnesium Sulfate in Water Premix] 2 gm Premix Bag 1 bag IV Q6H 05/24/20 10:28 oxyCODONE 10 mg PO Q4H PRN 05/24/20 11:52 Convert IV to Saline Lock [OM.PC] Routine 05/24/20 11:54 Communication Order [RC] ROUTINE Urinary Catheter Assessment [RC] ASDIRECTED 05/24/20 12:00 Insert Bhardwaj Catheter [Insert Urinary Catheter] [OM.PC] Q24H Furosemide [Lasix] 40 mg IVPUSH Q12H 05/25/20 05:00 BASIC METABOLIC PANEL,BMP [CHEM] Timed - Plan Plan:: ASSESSMENT AND PLAN HFpEF-echo showed normal to hyperdynamic left ventricle but right heart failure with enlarged right ventricle. She has some tricuspid regurgitation but no other major valve abnormalities. IVC was dilated and did not collapse. Significant pulmonary hypertension noted as well. -Initiate IV diuretic therapy every 12 hours -Bhardwaj catheter for strict intake and output monitoring -Follow-up formal echocardiogram read -Continue beta-kalia -Consider amlodipine if blood pressure will allow -Hold losartan -Wrap lower legs to help with edema -2 g sodium diet CHRONIC PULMONARY EMBOLI-noted on CT scan of the chest. This could be contributing to her right heart failure. Lower extremity ultrasound was negative. -Apixaban 10 mg p.o. twice daily x7 days, then 5 mg twice daily thereafter -Supplemental oxygen as needed GENERALIZED WEAKNESS-several recent falls, progressive deterioration in overall strength over the past few months. Recent underlying urinary tract infection. -PT/OT consults -Plan for discharged home with home care and home PT OT ACUTE CYSTITIS-recently prescribed cefuroxime to treat infection with strep anginosis. -Cephalexin 500 mg twice daily for 6 doses TYPE 2 DIABETES MELLITUS-blood sugar is a little on the low side today. -Continue metformin -4 times daily glucometers -Discontinue low-dose sliding scale Humalog MAINTENANCE ISSUES -DVT prophylaxis; apixaban -GI prophylaxis; not indicated -Bhardwaj catheter; not indicated -Nutrition; 2 g sodium diet DISPOSITION-anticipate discharge to home with home care after the hospital stay. Jordan Augustine MD
[2020-05-24] MEDS: Furosemide 40 MG/4 ML VIAL IVPUSH SCH (13:47)
[2020-05-24] MEDS: BETOPTIC S 0.25% EYEBOTH SCH ×3 (15:12→20:21)
[2020-05-24] MEDS: Cephalexin 250 MG Cap PO SCH (20:23)
[2020-05-24] MEDS: Pramipexole 0.5 MG Tab PO SCH (20:24)
[2020-05-24] MEDS: LATANOPROST 0.005% EYEBOTH SCH (20:24)
[2020-05-24] MEDS: Carbidopa/Levodopa 25-100 MG Tab PO SCH (20:24)
[2020-05-24] MEDS: OXcarbazepine 300 MG Tab PO PRN (20:55)
[2020-05-25] MEDS: Furosemide 40 MG/4 ML VIAL IVPUSH SCH ×2 (00:49→11:34)
[2020-05-25] MEDS: Magnesium Sulfate/Water 2 GM in Premix Bag 1 BAG IV SCH ×2 (03:37→10:19)
[2020-05-25] MEDS: Pantoprazole 40 MG Tab.CR PO SCH ×2 (08:21→17:11)
[2020-05-25] MEDS: metFORMIN 500 MG Tab PO SCH ×2 (08:28→17:11)
[2020-05-25] MEDS: BETOPTIC S 0.25% EYEBOTH SCH ×2 (08:28→20:29)
[2020-05-25] MEDS: Apixaban 5 MG Tab PO SCH ×2 (08:29→20:30)
[2020-05-25] MEDS: Cephalexin 250 MG Cap PO SCH ×2 (08:30→20:30)
[2020-05-25] MEDS: Aspirin 81 MG Tab.EC PO SCH (08:30)
[2020-05-25] MEDS: Metoprolol Tartrate 50 MG Tab PO SCH ×2 (08:33→20:58)
[2020-05-25] MEDS: Acetaminophen 325 MG Tab PO PRN (14:18)
--- NOTE | 2020-05-25 15:14 | PCM.PN ---
- General Info Date of Service: 05/25/20 Subjective Update: No acute events overnight. Good response to diuresis yesterday with some improvement in her edema, especially below the knees. She feels a little less short of breath today. She did require oxygen overnight but none this morning. Strength is a little better. Appetite is a little better. Kidney function is stable. Functional Status: Reports: Pain Controlled - Review of Systems General: Reports: Weakness. Denies: Fever - Patient Data Vitals - Most Recent: Last Vital Signs Temp 36.2 C 05/25/20 14:57 Pulse 75 05/25/20 14:57 Resp 16 05/25/20 14:57 BP 99/69 05/25/20 14:57 Pulse Ox 92 L 05/25/20 14:57 Weight - Most Recent: 98.747 kg I&O - Last 24 Hours: Intake & Output 05/25/20 05/25/20 05/25/20 06:59 14:59 22:59 Intake Total 236 440 Output Total 1930 0 Balance -1694 -1610 Lab Results Last 24 Hours: Laboratory Results - last 24 hr 05/25/20 Range/Units 04:50 Sodium 130 L (140-148) mmol/L Potassium 4.7 (3.6-5.2) mmol/L Chloride 96 L (100-108) mmol/L Carbon Dioxide 30 (21-32) mmol/L Anion Gap 8.7 (5.0-14.0) mmol/L BUN 19 H (7-18) mg/dL Creatinine 1.2 H (0.6-1.0) mg/dL Est Cr Clr Drug Dosing 26.86 mL/min Estimated GFR (MDRD) 43 L (>60) Glucose 90 (74-106) mg/dL Calcium 7.8 L (8.5-10.1) mg/dL Med Orders - Current: Current Medications Acetaminophen (Tylenol) 650 mg PO Q4H PRN PRN Reason: Pain (Mild 1-3)/fever Last Admin: 05/25/20 14:18 Dose: 650 mg Documented by: Apixaban (Eliquis) 10 mg PO BID [facility] Stop: 05/30/20 09:01 Last Admin: 05/25/20 08:29 Dose: 10 mg Documented by: Apixaban (Eliquis) 5 mg PO BID [facility] Aspirin (Halfprin) 81 mg PO DAILY [facility] Last Admin: 05/25/20 08:30 Dose: 81 mg Documented by: Carbidopa/Levodopa (Sinemet 25-100 Mg) 1 tab PO BEDTIME [facility] Last Admin: 05/24/20 20:24 Dose: 1 tab Documented by: Cephalexin (Keflex) 500 mg PO BID [facility] Stop: 05/27/20 09:01 Last Admin: 05/25/20 08:30 Dose: 500 mg Documented by: Dextrose (Glutose 15) 15 gm PO ONETIME PRN PRN Reason: Hypoglycemia Dextrose/Water (Dextrose 50% In Water) 50 ml IV ONETIME PRN PRN Reason: Hypoglycemia Furosemide (Lasix) 40 mg IVPUSH Q12H [facility] Last Admin: 05/25/20 11:34 Dose: 40 mg Documented by: Latanoprost (Xalatan 0.005% Ophth Soln) 0 ml EYEBOTH BEDTIME [facility] Last Admin: 05/24/20 20:24 Dose: 1 drop Documented by: Losartan Potassium (Cozaar) 100 mg PO DAILY [facility] Last Admin: 05/24/20 08:08 Dose: 100 mg Documented by: Melatonin (Melatonin) 9 mg PO BEDTIME [facility] Metformin HCl (Glucophage) 1,000 mg PO BIDMEALS [facility] Last Admin: 05/25/20 08:28 Dose: 1,000 mg Documented by: Metoprolol Tartrate (Lopressor) 50 mg PO BID [facility] Last Admin: 05/25/20 08:33 Dose: 50 mg Documented by: Betoptic-S 0.25% (Ophth Ptom) 0 drop EYEBOTH BID [facility] Last Admin: 05/25/20 08:28 Dose: 1 drop Documented by: Ondansetron HCl (Zofran) 4 mg IV Q4H PRN PRN Reason: Nausea/Vomiting Oxcarbazepine (Trileptal) 300 mg PO BID PRN PRN Reason: Pain Last Admin: 05/24/20 20:55 Dose: 300 mg Documented by: Oxycodone HCl (Oxycodone) 10 mg PO Q4H PRN PRN Reason: Pain (moderate 4-6) Last Admin: 05/24/20 23:21 Dose: 10 mg Documented by: Pantoprazole Sodium (Protonix) 40 mg PO BIDAC [facility] Last Admin: 05/25/20 08:21 Dose: 40 mg Documented by: Polyethylene Glycol (Miralax) 17 gm PO DAILY PRN PRN Reason: Constipation Pramipexole Dihydrochloride (Mirapex) 0.5 mg PO BEDTIME [facility] Last Admin: 05/24/20 20:24 Dose: 0.5 mg Documented by: Sodium Chloride (Saline Flush) 10 ml FLUSH ASDIRECTED PRN PRN Reason: Keep Vein Open Discontinued Medications Fentanyl (Sublimaze) 50 mcg IVPUSH ONETIME ONE Stop: 05/23/20 10:35 Last Admin: 05/23/20 10:49 Dose: 50 mcg Documented by: Sodium Chloride (Normal Saline) 1,000 mls @ 125 mls/hr IV ASDIRECTED [facility] Last Admin: 05/23/20 10:51 Dose: 125 mls/hr Documented by: Sodium Chloride (Normal Saline) 80 mls @ 3 mls/sec IV ASDIRECTED [facility] Stop: 05/23/20 10:46 Sodium Chloride (Normal Saline) 75 mls @ 3 mls/sec IV ASDIRECTED [facility] Stop: 05/23/20 13:00 Last Admin: 05/23/20 12:40 Dose: 3 mls/sec Documented by: Sodium Chloride (Normal Saline) 1,000 mls @ 100 mls/hr IV ASDIRECTED [facility] Last Admin: 05/24/20 08:59 Dose: 100 mls/hr Documented by: Sodium Chloride (Normal Saline) 1,000 mls @ 500 mls/hr IV ONETIME ONE Stop: 05/24/20 01:14 Last Admin: 05/23/20 23:19 Dose: 500 mls/hr Documented by: Magnesium Sulfate 2 gm/ Premix 50 mls @ 12.5 mls/hr IV Q6H [facility] Stop: 05/25/20 13:59 Last Admin: 05/25/20 10:19 Dose: 12.5 mls/hr Documented by: Insulin Human Lispro (Humalog) 0 unit SUBCUT QIDACANDBED [facility]; Protocol Last Admin: 05/24/20 15:01 Dose: Not Given Documented by: Iopamidol (Isovue-300 (61%)) 100 ml IV . DIRECTED [facility] Stop: 05/23/20 10:46 Iopamidol (Isovue-300 (61%)) 100 ml IV . DIRECTED [facility] Stop: 05/23/20 13:00 Last Admin: 05/23/20 12:40 Dose: 100 ml Documented by: Oxycodone HCl (Oxycodone) 5 mg PO Q4H PRN PRN Reason: Pain (moderate 4-6) Last Admin: 05/24/20 07:20 Dose: 5 mg Documented by: Pantoprazole Sodium (Protonix) 40 mg PO BID [facility] Last Admin: 05/23/20 21:18 Dose: 40 mg Documented by: Potassium Chloride (Klor-Con M20) 40 meq PO ONETIME ONE Stop: 05/24/20 10:01 Last Admin: 05/24/20 10:45 Dose: 40 meq Documented by: Sodium Chloride (Saline Flush) 10 ml FLUSH ASDIRECTED PRN PRN Reason: Keep Vein Open Sodium Chloride (Saline Flush) 10 ml FLUSH ONETIME ONE Stop: 05/23/20 10:46 Last Admin: 05/23/20 20:06 Dose: Not Given Documented by: Sodium Chloride (Saline Flush) 10 ml FLUSH ONETIME ONE Stop: 05/23/20 12:10 Last Admin: 05/23/20 12:40 Dose: 10 ml Documented by: - Exam Quality Assessment: No: Supplemental Oxygen General: Alert, Oriented, Cooperative, No Acute Distress Lungs: Normal Respiratory Effort, Crackles (rare both bases) Cardiovascular: Regular Rate, Irregular Rhythm GI/Abdominal Exam: Soft, No Distention Extremities: Pedal Edema. No: Increased Warmth Skin: Warm, Dry Psy/Mental Status: Alert, Normal Affect Sepsis Event Note - Evaluation Sepsis Screening Result: No Definite Risk - Focused Exam Vital Signs: Vital Signs Temp Temp Pulse Pulse Pulse Resp BP 05/25/20 14:57 36.2 C 75 16 05/25/20 11:12 36.4 C 78 14 05/25/20 09:00 05/25/20 08:33 73 110/60 05/25/20 07:18 35.9 C L 62 16 05/25/20 03:36 35.7 C L 63 16 BP BP Pulse Ox Pulse Ox 05/25/20 14:57 99/69 92 L 05/25/20 11:12 98/58 L 93 L 05/25/20 09:00 94 L 05/25/20 08:33 05/25/20 07:18 113/53 L 99 05/25/20 03:36 113/72 95 Date Exam was Performed: 05/25/20 Time Exam was Performed: 16:11 - Problem List Review Problem List Initiated/Reviewed/Updated: Yes - My Orders Last 24 Hours: My Active Orders 05/24/20 20:48 Communication Order [RC] ASDIRECTED 05/24/20 21:00 cephALEXin [Keflex] 500 mg PO BID 05/25/20 21:00 Melatonin 9 mg PO BEDTIME 05/26/20 05:00 BASIC METABOLIC PANEL,BMP [CHEM] Timed - Plan Plan:: ASSESSMENT AND PLAN HFpEF-echo showed normal to hyperdynamic left ventricle but right heart failure with enlarged right ventricle. She has some tricuspid regurgitation but no other major valve abnormalities. Significant pulmonary hypertension noted as well. Responding well to diuresis so far. Kidney function stable. -Continue IV diuretic therapy every 12 hours -Bhardwaj catheter for strict intake and output monitoring -Continue beta-kalia -Consider amlodipine if blood pressure will allow -Hold losartan -Wrap lower legs to help with edema -2 g sodium diet CHRONIC PULMONARY EMBOLI-noted on CT scan of the chest. This could be contributing to her right heart failure. Lower extremity ultrasound was negative. -Apixaban 10 mg p.o. twice daily x7 days, then 5 mg twice daily thereafter -Supplemental oxygen as needed GENERALIZED WEAKNESS-several recent falls, progressive deterioration in overall strength over the past few months. Recent underlying urinary tract infection. -PT/OT consults -Plan for discharged home with home care and home PT OT ACUTE CYSTITIS-recently prescribed cefuroxime to treat infection with strep anginosis. -Cephalexin 500 mg twice daily for 6 doses TYPE 2 DIABETES MELLITUS-blood sugar has been acceptable. -Continue metformin -4 times daily glucometers MAINTENANCE ISSUES -DVT prophylaxis; apixaban -GI prophylaxis; not indicated -Bhardwaj catheter; not indicated -Nutrition; 2 g sodium diet DISPOSITION-anticipate discharge to home with home care after the hospital stay. Jordan Augustine MD
[2020-05-25] MEDS: OXcarbazepine 300 MG Tab PO PRN (16:26)
[2020-05-25] MEDS: Carbidopa/Levodopa 25-100 MG Tab PO SCH (20:30)
[2020-05-25] MEDS: Pramipexole 0.5 MG Tab PO SCH (20:31)
[2020-05-25] MEDS: LATANOPROST 0.005% EYEBOTH SCH (20:31)
[2020-05-25] MEDS: Melatonin 3 MG Tab PO SCH (20:31)
[2020-05-26] MEDS: Furosemide 40 MG/4 ML VIAL IVPUSH SCH ×2 (00:04→11:36)
[2020-05-26] MEDS: oxyCODONE 5 MG Tab PO PRN ×2 (01:53→20:52)
[2020-05-26] MEDS: Apixaban 5 MG Tab PO SCH ×2 (08:12→20:54)
[2020-05-26] MEDS: Pantoprazole 40 MG Tab.CR PO SCH ×2 (08:12→17:34)
[2020-05-26] MEDS: metFORMIN 500 MG Tab PO SCH ×2 (08:13→17:34)
[2020-05-26] MEDS: BETOPTIC S 0.25% EYEBOTH SCH ×2 (08:13→20:53)
[2020-05-26] MEDS: Aspirin 81 MG Tab.EC PO SCH (08:14)
[2020-05-26] MEDS: Metoprolol Tartrate 50 MG Tab PO SCH (08:14)
[2020-05-26] MEDS: Cephalexin 250 MG Cap PO SCH ×2 (08:14→20:54)
--- NOTE | 2020-05-26 14:55 | PCM.PN ---
- General Info Date of Service: 05/26/20 Subjective Update: There were no acute events overnight. We had a good response to diuresis again yesterday with 2 L on the net negative side. She feels less short of breath again today. Strength is starting to improve but she remains very weak. Lower extremity edema is better but still is fairly impressive. Her blood pressures have been trending down and are on the lower side of normal at this point. We have been holding her metoprolol because of the lower pressures. No fevers. Functional Status: Reports: Pain Controlled, Tolerating Diet - Review of Systems General: Reports: Weakness Cardiovascular: Reports: Edema - Patient Data Vitals - Most Recent: Last Vital Signs Temp 35.4 C L 05/26/20 14:43 Pulse 87 05/26/20 14:43 Resp 16 05/26/20 14:43 BP 86/60 L 05/26/20 14:43 Pulse Ox 93 L 05/26/20 14:43 Weight - Most Recent: 100.244 kg I&O - Last 24 Hours: Intake & Output 05/25/20 05/26/20 05/26/20 22:59 06:59 14:59 Intake Total 240 30 Output Total 350 300 Balance -350 -60 30 Lab Results Last 24 Hours: Laboratory Results - last 24 hr 05/26/20 05/26/20 Range/Units 04:05 11:30 Sodium 130 L (140-148) mmol/L Potassium 4.3 (3.6-5.2) mmol/L Chloride 96 L (100-108) mmol/L Carbon Dioxide 27 (21-32) mmol/L Anion Gap 11.3 (5.0-14.0) mmol/L BUN 17 (7-18) mg/dL Creatinine 1.1 H (0.6-1.0) mg/dL Est Cr Clr Drug Dosing 29.30 mL/min Estimated GFR (MDRD) 48 L (>60) Glucose 107 H (74-106) mg/dL POC Glucose 132 H (74-106) MG/DL Calcium 8.1 L (8.5-10.1) mg/dL Med Orders - Current: Current Medications Acetaminophen (Tylenol) 650 mg PO Q4H PRN PRN Reason: Pain (Mild 1-3)/fever Last Admin: 05/25/20 14:18 Dose: 650 mg Documented by: Apixaban (Eliquis) 10 mg PO BID [facility] Stop: 05/30/20 09:01 Last Admin: 05/26/20 08:12 Dose: 10 mg Documented by: Apixaban (Eliquis) 5 mg PO BID [facility] Aspirin (Halfprin) 81 mg PO DAILY [facility] Last Admin: 05/26/20 08:14 Dose: 81 mg Documented by: Carbidopa/Levodopa (Sinemet 25-100 Mg) 1 tab PO BEDTIME [facility] Last Admin: 05/25/20 20:30 Dose: 1 tab Documented by: Cephalexin (Keflex) 500 mg PO BID [facility] Stop: 05/27/20 09:01 Last Admin: 05/26/20 08:14 Dose: 500 mg Documented by: Dextrose (Glutose 15) 15 gm PO ONETIME PRN PRN Reason: Hypoglycemia Dextrose/Water (Dextrose 50% In Water) 50 ml IV ONETIME PRN PRN Reason: Hypoglycemia Latanoprost (Xalatan 0.005% Ophth Soln) 0 ml EYEBOTH BEDTIME [facility] Last Admin: 05/25/20 20:31 Dose: 1 drop Documented by: Losartan Potassium (Cozaar) 100 mg PO DAILY [facility] Last Admin: 05/24/20 08:08 Dose: 100 mg Documented by: Melatonin (Melatonin) 9 mg PO BEDTIME [facility] Last Admin: 05/25/20 20:31 Dose: 9 mg Documented by: Metformin HCl (Glucophage) 1,000 mg PO BIDMEALS [facility] Last Admin: 05/26/20 08:13 Dose: 1,000 mg Documented by: Metoprolol Tartrate (Lopressor) 50 mg PO BID [facility] Last Admin: 05/26/20 08:14 Dose: Not Given Documented by: Betoptic-S 0.25% (Ophth Ptom) 0 drop EYEBOTH BID [facility] Last Admin: 05/26/20 08:13 Dose: 2 drop Documented by: Ondansetron HCl (Zofran) 4 mg IV Q4H PRN PRN Reason: Nausea/Vomiting Oxcarbazepine (Trileptal) 300 mg PO BID PRN PRN Reason: Pain Last Admin: 05/25/20 16:26 Dose: 300 mg Documented by: Oxycodone HCl (Oxycodone) 10 mg PO Q4H PRN PRN Reason: Pain (moderate 4-6) Last Admin: 05/26/20 01:53 Dose: 10 mg Documented by: Pantoprazole Sodium (Protonix) 40 mg PO BIDAC [facility] Last Admin: 05/26/20 08:12 Dose: 40 mg Documented by: Polyethylene Glycol (Miralax) 17 gm PO DAILY PRN PRN Reason: Constipation Last Admin: 05/25/20 16:12 Dose: 17 gm Documented by: Pramipexole Dihydrochloride (Mirapex) 0.5 mg PO BEDTIME [facility] Last Admin: 05/25/20 20:31 Dose: 0.5 mg Documented by: Sodium Chloride (Saline Flush) 10 ml FLUSH ASDIRECTED PRN PRN Reason: Keep Vein Open Discontinued Medications Fentanyl (Sublimaze) 50 mcg IVPUSH ONETIME ONE Stop: 05/23/20 10:35 Last Admin: 05/23/20 10:49 Dose: 50 mcg Documented by: Furosemide (Lasix) 40 mg IVPUSH Q12H [facility] Last Admin: 05/26/20 11:36 Dose: Not Given Documented by: Sodium Chloride (Normal Saline) 1,000 mls @ 125 mls/hr IV ASDIRECTED [facility] Last Admin: 05/23/20 10:51 Dose: 125 mls/hr Documented by: Sodium Chloride (Normal Saline) 80 mls @ 3 mls/sec IV ASDIRECTED [facility] Stop: 05/23/20 10:46 Sodium Chloride (Normal Saline) 75 mls @ 3 mls/sec IV ASDIRECTED [facility] Stop: 05/23/20 13:00 Last Admin: 05/23/20 12:40 Dose: 3 mls/sec Documented by: Sodium Chloride (Normal Saline) 1,000 mls @ 100 mls/hr IV ASDIRECTED [facility] Last Admin: 05/24/20 08:59 Dose: 100 mls/hr Documented by: Sodium Chloride (Normal Saline) 1,000 mls @ 500 mls/hr IV ONETIME ONE Stop: 05/24/20 01:14 Last Admin: 05/23/20 23:19 Dose: 500 mls/hr Documented by: Magnesium Sulfate 2 gm/ Premix 50 mls @ 12.5 mls/hr IV Q6H [facility] Stop: 05/25/20 13:59 Last Admin: 05/25/20 10:19 Dose: 12.5 mls/hr Documented by: Insulin Human Lispro (Humalog) 0 unit SUBCUT QIDACANDBED [facility]; Protocol Last Admin: 05/24/20 15:01 Dose: Not Given Documented by: Iopamidol (Isovue-300 (61%)) 100 ml IV . DIRECTED [facility] Stop: 05/23/20 10:46 Iopamidol (Isovue-300 (61%)) 100 ml IV . DIRECTED [facility] Stop: 05/23/20 13:00 Last Admin: 05/23/20 12:40 Dose: 100 ml Documented by: Oxycodone HCl (Oxycodone) 5 mg PO Q4H PRN PRN Reason: Pain (moderate 4-6) Last Admin: 05/24/20 07:20 Dose: 5 mg Documented by: Pantoprazole Sodium (Protonix) 40 mg PO BID [facility] Last Admin: 05/23/20 21:18 Dose: 40 mg Documented by: Potassium Chloride (Klor-Con M20) 40 meq PO ONETIME ONE Stop: 05/24/20 10:01 Last Admin: 05/24/20 10:45 Dose: 40 meq Documented by: Sodium Chloride (Saline Flush) 10 ml FLUSH ASDIRECTED PRN PRN Reason: Keep Vein Open Sodium Chloride (Saline Flush) 10 ml FLUSH ONETIME ONE Stop: 05/23/20 10:46 Last Admin: 05/23/20 20:06 Dose: Not Given Documented by: Sodium Chloride (Saline Flush) 10 ml FLUSH ONETIME ONE Stop: 05/23/20 12:10 Last Admin: 05/23/20 12:40 Dose: 10 ml Documented by: - Exam Quality Assessment: No: Supplemental Oxygen General: Alert, Oriented, Cooperative, No Acute Distress Lungs: Clear to Auscultation, Normal Respiratory Effort Cardiovascular: Regular Rate, Regular Rhythm GI/Abdominal Exam: Soft, No Distention Extremities: Pedal Edema. No: Increased Warmth Psy/Mental Status: Alert, Normal Affect Sepsis Event Note - Evaluation Sepsis Screening Result: No Definite Risk - Focused Exam Vital Signs: Vital Signs Temp Pulse Resp BP BP Pulse Ox 05/26/20 14:43 35.4 C L 87 16 86/60 L 93 L 05/26/20 11:16 35.8 C L 74 16 104/44 L 92 L 05/26/20 07:50 35.2 C L 70 16 79/54 L 90 L 05/26/20 05:57 73 20 90/56 L 93 L 05/26/20 03:02 92 L 05/26/20 03:00 36.0 C L 86 18 80/56 L 88 L Date Exam was Performed: 05/26/20 Time Exam was Performed: 17:36 - Problem List Review Problem List Initiated/Reviewed/Updated: Yes - My Orders Last 24 Hours: My Active Orders 05/25/20 21:00 Melatonin 9 mg PO BEDTIME 05/27/20 05:00 BASIC METABOLIC PANEL,BMP [CHEM] Timed - Plan Plan:: ASSESSMENT AND PLAN HFpEF-echo showed normal to hyperdynamic left ventricle but right heart failure with enlarged right ventricle, tricuspid regurgitation and pulmonary hypertension noted as well. Responding well to diuresis so far but blood pressures are on the low side so we cannot diurese any further today. Kidney function stable. -Hold diuresis today -Bhardwaj catheter for strict intake and output monitoring -Hold beta-kalia -Consider amlodipine if blood pressure will allow -Hold losartan -Wrap lower legs to help with edema -2 g sodium diet CHRONIC PULMONARY EMBOLI-noted on CT scan of the chest. This could be contribu ting to her right heart failure. Lower extremity ultrasound was negative. -Apixaban 10 mg p.o. twice daily x7 days, then 5 mg twice daily thereafter -Supplemental oxygen as needed GENERALIZED WEAKNESS-several recent falls, progressive deterioration in overall strength over the past few months. Still very weak but a little stronger each day. -PT/OT consults -Plan for discharged home with home care and home PT OT ACUTE CYSTITIS-recently prescribed cefuroxime to treat infection with strep anginosis. -Cephalexin 500 mg twice daily for 6 doses TYPE 2 DIABETES MELLITUS-blood sugars have been acceptable. -Continue metformin -4 times daily glucometers MAINTENANCE ISSUES -DVT prophylaxis; apixaban -GI prophylaxis; not indicated -Bhardwaj catheter; not indicated -Nutrition; 2 g sodium diet DISPOSITION-anticipate discharge to home with home care after the hospital stay. Jordan Augustine MD
[2020-05-26] MEDS: Pramipexole 0.5 MG Tab PO SCH (20:55)
[2020-05-26] MEDS: Carbidopa/Levodopa 25-100 MG Tab PO SCH (20:55)
[2020-05-26] MEDS: Melatonin 3 MG Tab PO SCH (20:55)
[2020-05-26] MEDS: LATANOPROST 0.005% EYEBOTH SCH (20:56)
[2020-05-26] MEDS: Diclofenac Sodium 1% Gel 100 GM Tube TOP PRN (21:51)
[2020-05-26] MEDS ORDERED: Nystatin Topical Powder 15 GM Bottle TOP PRN (22:56)
[2020-05-27] MEDS: Pantoprazole 40 MG Tab.CR PO SCH ×2 (09:23→17:20)
[2020-05-27] MEDS: metFORMIN 500 MG Tab PO SCH ×2 (09:24→17:25)
[2020-05-27] MEDS: Aspirin 81 MG Tab.EC PO SCH (09:25)
[2020-05-27] MEDS: Apixaban 5 MG Tab PO SCH ×2 (09:25→21:25)
[2020-05-27] MEDS: BETOPTIC S 0.25% EYEBOTH SCH ×2 (09:25→21:24)
[2020-05-27] MEDS: Cephalexin 250 MG Cap PO SCH (09:25)
[2020-05-27] MEDS: Losartan 50 MG Tab PO SCH (09:39)
[2020-05-27] MEDS: Metoprolol Tartrate 50 MG Tab PO SCH (09:39)
[2020-05-27] MEDS: Diclofenac Sodium 1% Gel 100 GM Tube TOP PRN (11:03)
--- NOTE | 2020-05-27 12:32 | PCM.PN ---
- General Info Date of Service: 05/27/20 Subjective Update: There were no acute events overnight. The patient reports that she slept fairly well. Shortness of breath is stable compared to yesterday. She is still weak and requires assistance. Blood pressures have remained on the low side of normal or even slightly below normal with systolic pressures anywhere from the 70s to the 90s. She still has significant lower extremity edema. She has yeast dermatitis involving her skin folds. Functional Status: Reports: Pain Controlled, Tolerating Diet - Review of Systems General: Reports: Weakness Pulmonary: Reports: Shortness of Breath Cardiovascular: Reports: Edema - Patient Data Vitals - Most Recent: Last Vital Signs Temp 36.8 C 05/27/20 11:14 Pulse 73 05/27/20 11:14 Resp 16 05/27/20 11:14 BP 93/45 L 05/27/20 11:14 Pulse Ox 91 L 05/27/20 06:53 Weight - Most Recent: 100.97 kg I&O - Last 24 Hours: Intake & Output 05/26/20 05/27/20 05/27/20 22:59 06:59 14:59 Intake Total 1298 700 Output Total 375 225 Balance 923 475 Lab Results Last 24 Hours: Laboratory Results - last 24 hr 05/26/20 05/26/20 05/27/20 Range/Units 16:30 21:00 06:00 Sodium 131 L (140-148) mmol/L Potassium 4.5 (3.6-5.2) mmol/L Chloride 97 L (100-108) mmol/L Carbon Dioxide 29 (21-32) mmol/L Anion Gap 9.5 (5.0-14.0) mmol/L BUN 18 (7-18) mg/dL Creatinine 1.0 (0.6-1.0) mg/dL Est Cr Clr Drug Dosing 32.23 mL/min Estimated GFR (MDRD) 53 L (>60) Glucose 99 (74-106) mg/dL POC Glucose 97 156 H (74-106) MG/DL Calcium 8.4 L (8.5-10.1) mg/dL 05/27/20 05/27/20 Range/Units 07:47 11:30 Sodium (140-148) mmol/L Potassium (3.6-5.2) mmol/L Chloride (100-108) mmol/L Carbon Dioxide (21-32) mmol/L Anion Gap (5.0-14.0) mmol/L BUN (7-18) mg/dL Creatinine (0.6-1.0) mg/dL Est Cr Clr Drug Dosing mL/min Estimated GFR (MDRD) (>60) Glucose (74-106) mg/dL POC Glucose 99 173 H (74-106) MG/DL Calcium (8.5-10.1) mg/dL Med Orders - Current: Current Medications Acetaminophen (Tylenol) 650 mg PO Q4H PRN PRN Reason: Pain (Mild 1-3)/fever Last Admin: 05/25/20 14:18 Dose: 650 mg Documented by: Apixaban (Eliquis) 10 mg PO BID [facility] Stop: 05/30/20 09:01 Last Admin: 05/27/20 09:25 Dose: 10 mg Documented by: Apixaban (Eliquis) 5 mg PO BID [facility] Aspirin (Halfprin) 81 mg PO DAILY [facility] Last Admin: 05/27/20 09:25 Dose: 81 mg Documented by: Carbidopa/Levodopa (Sinemet 25-100 Mg) 1 tab PO BEDTIME [facility] Last Admin: 05/26/20 20:55 Dose: 1 tab Documented by: Dextrose (Glutose 15) 15 gm PO ONETIME PRN PRN Reason: Hypoglycemia Dextrose/Water (Dextrose 50% In Water) 50 ml IV ONETIME PRN PRN Reason: Hypoglycemia Diclofenac Sodium (Voltaren 1% Gel) 1 gm TOP QID PRN PRN Reason: Pain Last Admin: 05/27/20 11:03 Dose: 1 gm Documented by: Latanoprost (Xalatan 0.005% Ophth Soln) 0 ml EYEBOTH BEDTIME [facility] Last Admin: 05/26/20 20:56 Dose: 1 drop Documented by: Losartan Potassium (Cozaar) 100 mg PO DAILY [facility] Last Admin: 05/27/20 09:39 Dose: Not Given Documented by: Melatonin (Melatonin) 9 mg PO BEDTIME [facility] Last Admin: 05/26/20 20:55 Dose: 9 mg Documented by: Metformin HCl (Glucophage) 1,000 mg PO BIDMEALS [facility] Last Admin: 05/27/20 09:24 Dose: 1,000 mg Documented by: Metoprolol Tartrate (Lopressor) 50 mg PO BID [facility] Last Admin: 05/27/20 09:39 Dose: Not Given Documented by: Betoptic-S 0.25% (Ophth Ptom) 0 drop EYEBOTH BID [facility] Last Admin: 05/27/20 09:25 Dose: 1 drop Documented by: Nystatin (Nystop) 0 gm TOP QID PRN PRN Reason: Rash Last Admin: 05/26/20 23:34 Dose: 1 applic Documented by: Ondansetron HCl (Zofran) 4 mg IV Q4H PRN PRN Reason: Nausea/Vomiting Oxcarbazepine (Trileptal) 300 mg PO BID PRN PRN Reason: Pain Last Admin: 05/25/20 16:26 Dose: 300 mg Documented by: Oxycodone HCl (Oxycodone) 10 mg PO Q4H PRN PRN Reason: Pain (moderate 4-6) Last Admin: 05/26/20 20:52 Dose: 10 mg Documented by: Pantoprazole Sodium (Protonix) 40 mg PO BIDAC [facility] Last Admin: 05/27/20 09:23 Dose: 40 mg Documented by: Polyethylene Glycol (Miralax) 17 gm PO DAILY PRN PRN Reason: Constipation Last Admin: 05/25/20 16:12 Dose: 17 gm Documented by: Pramipexole Dihydrochloride (Mirapex) 0.5 mg PO BEDTIME [facility] Last Admin: 05/26/20 20:55 Dose: 0.5 mg Documented by: Sodium Chloride (Saline Flush) 10 ml FLUSH ASDIRECTED PRN PRN Reason: Keep Vein Open Discontinued Medications Cephalexin (Keflex) 500 mg PO BID [facility] Stop: 05/27/20 09:01 Last Admin: 05/27/20 09:25 Dose: 500 mg Documented by: Fentanyl (Sublimaze) 50 mcg IVPUSH ONETIME ONE Stop: 05/23/20 10:35 Last Admin: 05/23/20 10:49 Dose: 50 mcg Documented by: Furosemide (Lasix) 40 mg IVPUSH Q12H [facility] Last Admin: 05/26/20 11:36 Dose: Not Given Documented by: Sodium Chloride (Normal Saline) 1,000 mls @ 125 mls/hr IV ASDIRECTED [facility] Last Admin: 05/23/20 10:51 Dose: 125 mls/hr Documented by: Sodium Chloride (Normal Saline) 80 mls @ 3 mls/sec IV ASDIRECTED [facility] Stop: 05/23/20 10:46 Sodium Chloride (Normal Saline) 75 mls @ 3 mls/sec IV ASDIRECTED [facility] Stop: 05/23/20 13:00 Last Admin: 05/23/20 12:40 Dose: 3 mls/sec Documented by: Sodium Chloride (Normal Saline) 1,000 mls @ 100 mls/hr IV ASDIRECTED [facility] Last Admin: 05/24/20 08:59 Dose: 100 mls/hr Documented by: Sodium Chloride (Normal Saline) 1,000 mls @ 500 mls/hr IV ONETIME ONE Stop: 05/24/20 01:14 Last Admin: 05/23/20 23:19 Dose: 500 mls/hr Documented by: Magnesium Sulfate 2 gm/ Premix 50 mls @ 12.5 mls/hr IV Q6H [facility] Stop: 05/25/20 13:59 Last Admin: 05/25/20 10:19 Dose: 12.5 mls/hr Documented by: Insulin Human Lispro (Humalog) 0 unit SUBCUT QIDACANDBED [facility]; Protocol Last Admin: 05/24/20 15:01 Dose: Not Given Documented by: Iopamidol (Isovue-300 (61%)) 100 ml IV . DIRECTED [facility] Stop: 05/23/20 10:46 Iopamidol (Isovue-300 (61%)) 100 ml IV . DIRECTED [facility] Stop: 05/23/20 13:00 Last Admin: 05/23/20 12:40 Dose: 100 ml Documented by: Oxycodone HCl (Oxycodone) 5 mg PO Q4H PRN PRN Reason: Pain (moderate 4-6) Last Admin: 05/24/20 07:20 Dose: 5 mg Documented by: Pantoprazole Sodium (Protonix) 40 mg PO BID [facility] Last Admin: 05/23/20 21:18 Dose: 40 mg Documented by: Potassium Chloride (Klor-Con M20) 40 meq PO ONETIME ONE Stop: 05/24/20 10:01 Last Admin: 05/24/20 10:45 Dose: 40 meq Documented by: Sodium Chloride (Saline Flush) 10 ml FLUSH ASDIRECTED PRN PRN Reason: Keep Vein Open Sodium Chloride (Saline Flush) 10 ml FLUSH ONETIME ONE Stop: 05/23/20 10:46 Last Admin: 05/23/20 20:06 Dose: Not Given Documented by: Sodium Chloride (Saline Flush) 10 ml FLUSH ONETIME ONE Stop: 05/23/20 12:10 Last Admin: 05/23/20 12:40 Dose: 10 ml Documented by: - Exam Quality Assessment: Supplemental Oxygen General: Alert, Oriented, Cooperative, No Acute Distress Neck: JVD Lungs: Normal Respiratory Effort, Decreased Breath Sounds (both bases) Cardiovascular: Regular Rate, Regular Rhythm GI/Abdominal Exam: Soft, No Distention Extremities: Pedal Edema, Other (both legs wrapped from foot to lower thigh ). No: Increased Warmth Skin: Warm, Dry Psy/Mental Status: Alert, Normal Affect Sepsis Event Note - Evaluation Sepsis Screening Result: No Definite Risk - Focused Exam Vital Signs: Vital Signs Temp Pulse Resp BP BP Pulse Ox 05/27/20 11:14 36.8 C 73 16 93/45 L 05/27/20 06:53 36.2 C 88 18 84/52 L 91 L 05/27/20 05:59 82 14 87/39 L 96 Date Exam was Performed: 05/27/20 Time Exam was Performed: 16:22 - Problem List Review Problem List Initiated/Reviewed/Updated: Yes - My Orders Last 24 Hours: My Active Orders 05/27/20 12:00 Insert Bhardwaj Catheter [Insert Urinary Catheter] [OM.PC] Q24H 05/27/20 12:27 Transfer Patient (Change bed) [ADT] Routine 05/27/20 12:30 DOPamine 400 MG in D5W @ 2 MCG/KG/MIN(250ml) Premix DOPamine/Dextrose 5%-Water [DOPamine in D5W 400 MG/250 ML] 400 mg in 250 ml IV TITRATE 05/27/20 12:31 Cardiac Monitoring [RC] .As Directed 05/27/20 14:00 Furosemide [Lasix] 20 mg IVPUSH NOW ONE 05/28/20 05:00 BASIC METABOLIC PANEL,BMP [CHEM] Timed CBC W/O DIFF,HEMOGRAM [HEME] Timed (1) MAGNESIUM [CHEM] Timed - Plan Plan:: ASSESSMENT AND PLAN HFpEF-echo showed normal to hyperdynamic left ventricle but right heart failure with enlarged right ventricle, tricuspid regurgitation and pulmonary hypertension noted as well. Blood pressure continues to be on the low side so we have not been able to diurese for more than 24 hours. Kidney function stable. -Transferred to the intensive care unit -Start low-dose dopamine -Furosemide dosing following initiation of dopamine -Bhardwaj catheter for strict intake and output monitoring -Hold beta-kalia -Consider amlodipine for pulmonary hypertension if blood pressure will allow -Wrap lower legs to help with edema -2 g sodium diet CHRONIC PULMONARY EMBOLI-noted on CT scan of the chest. This could be contributing to her right heart failure. Lower extremity ultrasound was negative. -Apixaban 10 mg p.o. twice daily x7 days, then 5 mg twice daily thereafter -Supplemental oxygen as needed GENERALIZED WEAKNESS-several recent falls, progressive deterioration in overall strength over the past few months. Still very weak and continues to require as sistance. -PT/OT consults -Plan for discharged home with home care and home PT OT ACUTE CYSTITIS-recently prescribed cefuroxime to treat infection with strep anginosis. -Cephalexin 500 mg twice daily for 6 doses TYPE 2 DIABETES MELLITUS-blood sugars have been acceptable. -Continue metformin -4 times daily glucometers MAINTENANCE ISSUES -DVT prophylaxis; apixaban -GI prophylaxis; not indicated -Bhardwaj catheter; not indicated -Nutrition; 2 g sodium diet DISPOSITION-anticipate discharge to home with home care after the hospital stay. Jordan Augustine MD
[2020-05-27] MEDS: Nystatin Topical Powder 15 GM Bottle TOP SCH ×2 (12:59→21:24)
[2020-05-27] MEDS ORDERED: Furosemide 20 MG/2 ML VIAL IVPUSH ONE (14:00)
[2020-05-27] MEDS: oxyCODONE 5 MG Tab PO PRN (14:08)
[2020-05-27] MEDS: DOPamine/Dextrose 5%-Water 400 MG/250 ML BAG IV SCH (19:00)
[2020-05-27] MEDS: Melatonin 3 MG Tab PO SCH (21:24)
[2020-05-27] MEDS: LATANOPROST 0.005% EYEBOTH SCH (21:25)
[2020-05-27] MEDS: Pramipexole 0.5 MG Tab PO SCH (21:25)
[2020-05-27] MEDS: Carbidopa/Levodopa 25-100 MG Tab PO SCH (21:25)
[2020-05-28] MEDS ORDERED: Furosemide 20 MG/2 ML VIAL IVPUSH ONE (01:00)
[2020-05-28] MEDS: Ondansetron 4 MG/2 ML SDV IV PRN (01:32)
[2020-05-28] MEDS: oxyCODONE 5 MG Tab PO PRN ×2 (01:32→14:50)
[2020-05-28] MEDS: Pantoprazole 40 MG Tab.CR PO SCH ×2 (08:03→16:15)
[2020-05-28] MEDS: Nystatin Topical Powder 15 GM Bottle TOP SCH ×3 (08:03→20:55)
[2020-05-28] MEDS: BETOPTIC S 0.25% EYEBOTH SCH ×2 (08:04→20:55)
[2020-05-28] MEDS: Aspirin 81 MG Tab.EC PO SCH (08:04)
[2020-05-28] MEDS: Apixaban 5 MG Tab PO SCH ×2 (08:04→20:55)
[2020-05-28] MEDS: metFORMIN 500 MG Tab PO SCH ×2 (08:07→16:27)
[2020-05-28] MEDS: Magnesium Sulfate/Water 2 GM in Premix Bag 1 BAG IV SCH ×2 (09:00→16:15)
--- NOTE | 2020-05-28 10:36 | PCM.PN ---
- General Info Date of Service: 05/28/20 Subjective Update: No acute events overnight. We did see a pretty good response to the dopamine infusion with Lasix dosing. Edema is a little better today. Shortness of breath is about baseline but not dramatically changed. No fevers. Appetite is decent. She is still fairly weak. She has a fair amount of pain under her skin folds in the area of the yeast dermatitis. Kidney function is stable. Functional Status: Reports: Pain Controlled, Tolerating Diet - Review of Systems General: Reports: Weakness Pulmonary: Reports: Shortness of Breath Cardiovascular: Reports: Edema - Patient Data Vitals - Most Recent: Last Vital Signs Temp 37.0 C 05/28/20 07:00 Pulse 90 05/27/20 16:00 Resp 22 H 05/28/20 09:00 BP 107/70 05/28/20 09:00 Pulse Ox 91 L 05/28/20 09:00 Weight - Most Recent: 100.97 kg I&O - Last 24 Hours: Intake & Output 05/27/20 05/28/20 05/28/20 22:59 06:59 14:59 Intake Total 280 125 Output Total 1549 470 Balance -1269 -345 Lab Results Last 24 Hours: Laboratory Results - last 24 hr 05/27/20 05/28/20 05/28/20 Range/Units 11:30 04:32 04:32 WBC 6.7 (4.5-11.0) K/uL RBC 4.41 (3.30-5.50) M/uL Hgb 12.1 (12.0-15.0) g/dL Hct 36.1 (36.0-48.0) % MCV 82 (80-98) fL MCH 27 (27-31) pg MCHC 34 (32-36) % Plt Count 316 (150-400) K/uL Sodium 132 L (140-148) mmol/L Potassium 5.0 (3.6-5.2) mmol/L Chloride 97 L (100-108) mmol/L Carbon Dioxide 29 (21-32) mmol/L Anion Gap 11.0 (5.0-14.0) mmol/L BUN 14 (7-18) mg/dL Creatinine 0.9 (0.6-1.0) mg/dL Est Cr Clr Drug Dosing 35.81 mL/min Estimated GFR (MDRD) > 60 (>60) Glucose 127 H (74-106) mg/dL POC Glucose 173 H (74-106) MG/DL Calcium 8.5 (8.5-10.1) mg/dL Magnesium 1.6 L (1.8-2.4) mg/dL Med Orders - Current: Current Medications Acetaminophen (Tylenol) 650 mg PO Q4H PRN PRN Reason: Pain (Mild 1-3)/fever Last Admin: 05/25/20 14:18 Dose: 650 mg Documented by: Apixaban (Eliquis) 10 mg PO BID [facility] Stop: 05/30/20 09:01 Last Admin: 05/28/20 08:04 Dose: 10 mg Documented by: Apixaban (Eliquis) 5 mg PO BID [facility] Aspirin (Halfprin) 81 mg PO DAILY [facility] Last Admin: 05/28/20 08:04 Dose: 81 mg Documented by: Carbidopa/Levodopa (Sinemet 25-100 Mg) 1 tab PO BEDTIME [facility] Last Admin: 05/27/20 21:25 Dose: 1 tab Documented by: Dextrose (Glutose 15) 15 gm PO ONETIME PRN PRN Reason: Hypoglycemia Dextrose/Water (Dextrose 50% In Water) 50 ml IV ONETIME PRN PRN Reason: Hypoglycemia Diclofenac Sodium (Voltaren 1% Gel) 1 gm TOP QID PRN PRN Reason: Pain Last Admin: 05/27/20 11:03 Dose: 1 gm Documented by: Dopamine HCl/Dextrose (Dopamine In D5w 400 Mg/250 Ml) 400 mg in 250 mls @ 7.573 mls/hr IV TITRATE [facility]; Protocol Last Admin: 05/27/20 19:00 Dose: 2 mcg/kg/min, 7.573 mls/hr Documented by: Magnesium Sulfate 2 gm/ Premix 50 mls @ 25 mls/hr IV Q6H [facility] Stop: 05/28/20 16:59 Last Admin: 05/28/20 09:00 Dose: 25 mls/hr Documented by: Latanoprost (Xalatan 0.005% Ophth Soln) 0 ml EYEBOTH BEDTIME [facility] Last Admin: 05/27/20 21:25 Dose: 1 drop Documented by: Melatonin (Melatonin) 9 mg PO BEDTIME [facility] Last Admin: 05/27/20 21:24 Dose: 9 mg Documented by: Metformin HCl (Glucophage) 1,000 mg PO BIDMEALS [facility] Last Admin: 05/28/20 08:07 Dose: 1,000 mg Documented by: Metoprolol Tartrate (Lopressor) 50 mg PO BID [facility] Last Admin: 05/27/20 09:39 Dose: Not Given Documented by: Betoptic-S 0.25% (Ophth Ptom) 0 drop EYEBOTH BID [facility] Last Admin: 05/28/20 08:04 Dose: 1 drop Documented by: Nystatin (Nystop) 1 gm TOP TID [facility] Last Admin: 05/28/20 08:03 Dose: 1 gm Documented by: Ondansetron HCl (Zofran) 4 mg IV Q4H PRN PRN Reason: Nausea/Vomiting Last Admin: 05/28/20 01:32 Dose: 4 mg Documented by: Oxcarbazepine (Trileptal) 300 mg PO BID PRN PRN Reason: Pain Last Admin: 05/25/20 16:26 Dose: 300 mg Documented by: Oxycodone HCl (Oxycodone) 10 mg PO Q4H PRN PRN Reason: Pain (moderate 4-6) Last Admin: 05/28/20 01:32 Dose: 10 mg Documented by: Pantoprazole Sodium (Protonix) 40 mg PO BIDAC [facility] Last Admin: 05/28/20 08:03 Dose: 40 mg Documented by: Polyethylene Glycol (Miralax) 17 gm PO DAILY PRN PRN Reason: Constipation Last Admin: 05/25/20 16:12 Dose: 17 gm Documented by: Pramipexole Dihydrochloride (Mirapex) 0.5 mg PO BEDTIME [facility] Last Admin: 05/27/20 21:25 Dose: 0.5 mg Documented by: Sodium Chloride (Saline Flush) 10 ml FLUSH ASDIRECTED PRN PRN Reason: Keep Vein Open Discontinued Medications Cephalexin (Keflex) 500 mg PO BID [facility] Stop: 05/27/20 09:01 Last Admin: 05/27/20 09:25 Dose: 500 mg Documented by: Fentanyl (Sublimaze) 50 mcg IVPUSH ONETIME ONE Stop: 05/23/20 10:35 Last Admin: 05/23/20 10:49 Dose: 50 mcg Documented by: Furosemide (Lasix) 40 mg IVPUSH Q12H [facility] Last Admin: 05/26/20 11:36 Dose: Not Given Documented by: Furosemide (Lasix) 20 mg IVPUSH NOW ONE Stop: 05/27/20 14:01 Last Admin: 05/27/20 12:59 Dose: 20 mg Documented by: Furosemide (Lasix) 20 mg IVPUSH ONETIME ONE Stop: 05/28/20 01:01 Last Admin: 05/28/20 01:27 Dose: 20 mg Documented by: Sodium Chloride (Normal Saline) 1,000 mls @ 125 mls/hr IV ASDIRECTED [facility] Last Admin: 05/23/20 10:51 Dose: 125 mls/hr Documented by: Sodium Chloride (Normal Saline) 80 mls @ 3 mls/sec IV ASDIRECTED [facility] Stop: 05/23/20 10:46 Sodium Chloride (Normal Saline) 75 mls @ 3 mls/sec IV ASDIRECTED [facility] Stop: 05/23/20 13:00 Last Admin: 05/23/20 12:40 Dose: 3 mls/sec Documented by: Sodium Chloride (Normal Saline) 1,000 mls @ 100 mls/hr IV ASDIRECTED [facility] Last Admin: 05/24/20 08:59 Dose: 100 mls/hr Documented by: Sodium Chloride (Normal Saline) 1,000 mls @ 500 mls/hr IV ONETIME ONE Stop: 05/24/20 01:14 Last Admin: 05/23/20 23:19 Dose: 500 mls/hr Documented by: Magnesium Sulfate 2 gm/ Premix 50 mls @ 12.5 mls/hr IV Q6H [facility] Stop: 05/25/20 13:59 Last Admin: 05/25/20 10:19 Dose: 12.5 mls/hr Documented by: Insulin Human Lispro (Humalog) 0 unit SUBCUT QIDACANDBED [facility]; Protocol Last Admin: 05/24/20 15:01 Dose: Not Given Documented by: Iopamidol (Isovue-300 (61%)) 100 ml IV . DIRECTED [facility] Stop: 05/23/20 10:46 Iopamidol (Isovue-300 (61%)) 100 ml IV . DIRECTED [facility] Stop: 05/23/20 13:00 Last Admin: 05/23/20 12:40 Dose: 100 ml Documented by: Losartan Potassium (Cozaar) 100 mg PO DAILY [facility] Last Admin: 05/27/20 09:39 Dose: Not Given Documented by: Nystatin (Nystop) 0 gm TOP QID PRN PRN Reason: Rash Last Admin: 05/26/20 23:34 Dose: 1 applic Documented by: Oxycodone HCl (Oxycodone) 5 mg PO Q4H PRN PRN Reason: Pain (moderate 4-6) Last Admin: 05/24/20 07:20 Dose: 5 mg Documented by: Pantoprazole Sodium (Protonix) 40 mg PO BID [facility] Last Admin: 05/23/20 21:18 Dose: 40 mg Documented by: Potassium Chloride (Klor-Con M20) 40 meq PO ONETIME ONE Stop: 05/24/20 10:01 Last Admin: 05/24/20 10:45 Dose: 40 meq Documented by: Sodium Chloride (Saline Flush) 10 ml FLUSH ASDIRECTED PRN PRN Reason: Keep Vein Open Sodium Chloride (Saline Flush) 10 ml FLUSH ONETIME ONE Stop: 05/23/20 10:46 Last Admin: 05/23/20 20:06 Dose: Not Given Documented by: Sodium Chloride (Saline Flush) 10 ml FLUSH ONETIME ONE Stop: 05/23/20 12:10 Last Admin: 05/23/20 12:40 Dose: 10 ml Documented by: - Exam Quality Assessment: No: Supplemental Oxygen General: Alert, Oriented, Cooperative, No Acute Distress Neck: JVD Lungs: Clear to Auscultation, Normal Respiratory Effort Cardiovascular: Regular Rhythm, Tachycardia GI/Abdominal Exam: Soft, No Distention Extremities: Pedal Edema. No: Increased Warmth Skin: Warm, Dry, Rash (yeast under pannus ) Psy/Mental Status: Alert, Normal Affect Sepsis Event Note - Evaluation Sepsis Screening Result: No Definite Risk - Focused Exam Vital Signs: Vital Signs Temp Resp BP Pulse Ox 05/28/20 09:00 22 H 107/70 91 L 05/28/20 07:00 37.0 C 15 108/68 96 05/28/20 06:00 11 L 112/61 95 05/28/20 04:00 13 103/61 94 L 05/28/20 02:00 36.8 C 15 112/74 92 L 05/28/20 01:00 20 116/67 88 L 05/28/20 00:00 14 116/73 95 05/27/20 23:00 15 114/72 91 L Date Exam was Performed: 05/28/20 Time Exam was Performed: 16:03 - Problem List Review Problem List Initiated/Reviewed/Updated: Yes - My Orders Last 24 Hours: My Active Orders 05/27/20 12:00 Insert Bhardwaj Catheter [Insert Urinary Catheter] [OM.PC] Q24H 05/27/20 12:27 Transfer Patient (Change bed) [ADT] Routine 05/27/20 12:30 DOPamine/Dextrose 5%-Water [DOPamine in D5W 400 MG/250 ML] 400 mg in 250 ml IV TITRATE 05/27/20 12:31 Cardiac Monitoring [RC] Q6H 05/27/20 14:00 Nystatin [Nystop] 1 gm TOP TID 05/28/20 09:00 Magnesium Sulfate/Water [Magnesium Sulfate in Water Premix] 2 gm Premix Bag 1 bag IV Q6H 05/28/20 09:25 PT Evaluation and Treatment [CONS] Routine 05/28/20 11:00 Furosemide [Lasix] 20 mg IVPUSH Q8H - Plan Plan:: ASSESSMENT AND PLAN HFpEF-echo showed normal to hyperdynamic left ventricle but right heart failure with enlarged right ventricle, tricuspid regurgitation and pulmonary hypertension noted as well. Decent response to diuresis with the dopamine infusion. Kidney function stable. -Continue low-dose dopamine -Furosemide IV every 8 hours -Bhardwaj catheter for strict intake and output monitoring -Hold beta-kalia -Consider amlodipine for pulmonary hypertension if blood pressure will allow -Wrap lower legs to help with edema -2 g sodium diet CHRONIC PULMONARY EMBOLI-noted on CT scan of the chest. This could be contributing to her right heart failure. Lower extremity ultrasound was negative. -Apixaban 10 mg p.o. twice daily x7 days, then 5 mg twice daily thereafter -Supplemental oxygen as needed GENERALIZED WEAKNESS-several recent falls, progressive deterioration in overall strength over the past few months. Still very weak and continues to require assistance. -PT/OT consults -Plan for discharged home with home care and home PT OT ACUTE CYSTITIS-recently prescribed cefuroxime to treat infection with strep anginosis. -Cephalexin 500 mg twice daily for 6 doses TYPE 2 DIABETES MELLITUS-blood sugars have been acceptable. -Continue metformin -4 times daily glucometers MAINTENANCE ISSUES -DVT prophylaxis; apixaban -GI prophylaxis; not indicated -Bhardwaj catheter; not indicated -Nutrition; 2 g sodium diet DISPOSITION-anticipate discharge to home with home care after the hospital stay. Jordan Augustine MD
[2020-05-28] MEDS: Furosemide 20 MG/2 ML VIAL IVPUSH SCH ×2 (11:03→18:25)
[2020-05-28] MEDS: Diclofenac Sodium 1% Gel 100 GM Tube TOP PRN (14:50)
[2020-05-28] MEDS: Acetaminophen 325 MG Tab PO PRN (16:29)
[2020-05-28] MEDS: Melatonin 3 MG Tab PO SCH (20:55)
[2020-05-28] MEDS: Carbidopa/Levodopa 25-100 MG Tab PO SCH (20:55)
[2020-05-28] MEDS: LATANOPROST 0.005% EYEBOTH SCH (20:55)
[2020-05-28] MEDS: Pramipexole 0.5 MG Tab PO SCH (20:55)
[2020-05-28] MEDS: DOPamine/Dextrose 5%-Water 400 MG/250 ML BAG IV SCH (21:52)
[2020-05-29] MEDS: Furosemide 40 MG/4 ML VIAL IVPUSH SCH ×3 (02:02→17:32)
[2020-05-29] MEDS: Pantoprazole 40 MG Tab.CR PO SCH ×2 (07:50→16:40)
[2020-05-29] MEDS: metFORMIN 500 MG Tab PO SCH ×2 (07:51→16:45)
--- NOTE | 2020-05-29 09:34 | PCM.PN ---
- General Info Date of Service: 05/29/20 Subjective Update: Patient had difficulty with a plugged urinary catheter overnight. This needed to be replaced but there have been no issues since then. No other acute issues overnight. She continues on the dopamine infusion. Urine output is decent with the furosemide. Lower extremity edema is slowly improving. Shortness of breath is at baseline. She has not had any fevers. Kidney function remains at baseline. Functional Status: Reports: Pain Controlled, Tolerating Diet - Review of Systems General: Reports: Weakness Pulmonary: Reports: Shortness of Breath - Patient Data Vitals - Most Recent: Last Vital Signs Temp 36.9 C 05/29/20 07:00 Pulse 120 H 05/29/20 09:00 Resp 20 05/29/20 09:00 BP 103/59 L 05/29/20 09:00 Pulse Ox 94 L 05/29/20 09:00 Weight - Most Recent: 100.97 kg I&O - Last 24 Hours: Intake & Output 05/28/20 05/29/20 05/29/20 22:59 06:59 14:59 Intake Total 195 144 Output Total 500 925 200 Balance -305 -781 -200 Lab Results Last 24 Hours: Laboratory Results - last 24 hr 05/29/20 Range/Units 05:00 Sodium 130 L (140-148) mmol/L Potassium 4.6 (3.6-5.2) mmol/L Chloride 94 L (100-108) mmol/L Carbon Dioxide 31 (21-32) mmol/L Anion Gap 9.6 (5.0-14.0) mmol/L BUN 13 (7-18) mg/dL Creatinine 0.9 (0.6-1.0) mg/dL Est Cr Clr Drug Dosing 35.81 mL/min Estimated GFR (MDRD) > 60 (>60) Glucose 147 H (74-106) mg/dL Calcium 8.6 (8.5-10.1) mg/dL Med Orders - Current: Current Medications Acetaminophen (Tylenol) 650 mg PO Q4H PRN PRN Reason: Pain (Mild 1-3)/fever Last Admin: 05/28/20 16:29 Dose: 650 mg Documented by: Apixaban (Eliquis) 10 mg PO BID [facility] Stop: 05/30/20 09:01 Last Admin: 05/28/20 20:55 Dose: 10 mg Documented by: Apixaban (Eliquis) 5 mg PO BID [facility] Aspirin (Halfprin) 81 mg PO DAILY [facility] Last Admin: 05/28/20 08:04 Dose: 81 mg Documented by: Carbidopa/Levodopa (Sinemet 25-100 Mg) 1 tab PO BEDTIME [facility] Last Admin: 05/28/20 20:55 Dose: 1 tab Documented by: Dextrose (Glutose 15) 15 gm PO ONETIME PRN PRN Reason: Hypoglycemia Dextrose/Water (Dextrose 50% In Water) 50 ml IV ONETIME PRN PRN Reason: Hypoglycemia Diclofenac Sodium (Voltaren 1% Gel) 1 gm TOP QID PRN PRN Reason: Pain Last Admin: 05/28/20 14:50 Dose: 1 ea Documented by: Furosemide (Lasix) 40 mg IVPUSH Q8H [facility] Last Admin: 05/29/20 02:02 Dose: 40 mg Documented by: Dopamine HCl/Dextrose (Dopamine In D5w 400 Mg/250 Ml) 400 mg in 250 mls @ 7.573 mls/hr IV TITRATE [facility]; Protocol Last Titration: 05/29/20 02:09 Dose: 5 mcg/kg/min, 18.932 mls/hr Documented by: Latanoprost (Xalatan 0.005% Ophth Soln) 0 ml EYEBOTH BEDTIME [facility] Last Admin: 05/28/20 20:55 Dose: 1 drop Documented by: Melatonin (Melatonin) 9 mg PO BEDTIME [facility] Last Admin: 05/28/20 20:55 Dose: 9 mg Documented by: Metformin HCl (Glucophage) 1,000 mg PO BIDMEALS [facility] Last Admin: 05/29/20 07:51 Dose: 1,000 mg Documented by: Metoprolol Tartrate (Lopressor) 50 mg PO BID [facility] Last Admin: 05/27/20 09:39 Dose: Not Given Documented by: Betoptic-S 0.25% (Ophth Ptom) 0 drop EYEBOTH BID [facility] Last Admin: 05/28/20 20:55 Dose: 1 drop Documented by: Nystatin (Nystop) 1 gm TOP TID [facility] Last Admin: 05/28/20 20:55 Dose: 1 gm Documented by: Ondansetron HCl (Zofran) 4 mg IV Q4H PRN PRN Reason: Nausea/Vomiting Last Admin: 05/28/20 01:32 Dose: 4 mg Documented by: Oxcarbazepine (Trileptal) 300 mg PO BID PRN PRN Reason: Pain Last Admin: 05/25/20 16:26 Dose: 300 mg Documented by: Oxycodone HCl (Oxycodone) 5 mg PO Q4H PRN PRN Reason: Pain (moderate 4-6) Pantoprazole Sodium (Protonix) 40 mg PO BIDAC [facility] Last Admin: 05/29/20 07:50 Dose: 40 mg Documented by: Polyethylene Glycol (Miralax) 17 gm PO DAILY PRN PRN Reason: Constipation Last Admin: 05/25/20 16:12 Dose: 17 gm Documented by: Pramipexole Dihydrochloride (Mirapex) 0.5 mg PO BEDTIME [facility] Last Admin: 05/28/20 20:55 Dose: 0.5 mg Documented by: Sodium Chloride (Saline Flush) 10 ml FLUSH ASDIRECTED PRN PRN Reason: Keep Vein Open Discontinued Medications Cephalexin (Keflex) 500 mg PO BID [facility] Stop: 05/27/20 09:01 Last Admin: 05/27/20 09:25 Dose: 500 mg Documented by: Fentanyl (Sublimaze) 50 mcg IVPUSH ONETIME ONE Stop: 05/23/20 10:35 Last Admin: 05/23/20 10:49 Dose: 50 mcg Documented by: Furosemide (Lasix) 40 mg IVPUSH Q12H [facility] Last Admin: 05/26/20 11:36 Dose: Not Given Documented by: Furosemide (Lasix) 20 mg IVPUSH NOW ONE Stop: 05/27/20 14:01 Last Admin: 05/27/20 12:59 Dose: 20 mg Documented by: Furosemide (Lasix) 20 mg IVPUSH ONETIME ONE Stop: 05/28/20 01:01 Last Admin: 05/28/20 01:27 Dose: 20 mg Documented by: Furosemide (Lasix) 20 mg IVPUSH Q8H [facility] Last Admin: 05/28/20 18:25 Dose: 20 mg Documented by: Sodium Chloride (Normal Saline) 1,000 mls @ 125 mls/hr IV ASDIRECTED [facility] Last Admin: 05/23/20 10:51 Dose: 125 mls/hr Documented by: Sodium Chloride (Normal Saline) 80 mls @ 3 mls/sec IV ASDIRECTED [facility] Stop: 05/23/20 10:46 Sodium Chloride (Normal Saline) 75 mls @ 3 mls/sec IV ASDIRECTED [facility] Stop: 05/23/20 13:00 Last Admin: 05/23/20 12:40 Dose: 3 mls/sec Documented by: Sodium Chloride (Normal Saline) 1,000 mls @ 100 mls/hr IV ASDIRECTED [facility] Last Admin: 05/24/20 08:59 Dose: 100 mls/hr Documented by: Sodium Chloride (Normal Saline) 1,000 mls @ 500 mls/hr IV ONETIME ONE Stop: 05/24/20 01:14 Last Admin: 05/23/20 23:19 Dose: 500 mls/hr Documented by: Magnesium Sulfate 2 gm/ Premix 50 mls @ 12.5 mls/hr IV Q6H [facility] Stop: 05/25/20 13:59 Last Admin: 05/25/20 10:19 Dose: 12.5 mls/hr Documented by: Magnesium Sulfate 2 gm/ Premix 50 mls @ 25 mls/hr IV Q6H [facility] Stop: 05/28/20 16:59 Last Admin: 05/28/20 16:15 Dose: 25 mls/hr Documented by: Insulin Human Lispro (Humalog) 0 unit SUBCUT QIDACANDBED [facility]; Protocol Last Admin: 05/24/20 15:01 Dose: Not Given Documented by: Iopamidol (Isovue-300 (61%)) 100 ml IV . DIRECTED [facility] Stop: 05/23/20 10:46 Iopamidol (Isovue-300 (61%)) 100 ml IV . DIRECTED [facility] Stop: 05/23/20 13:00 Last Admin: 05/23/20 12:40 Dose: 100 ml Documented by: Losartan Potassium (Cozaar) 100 mg PO DAILY [facility] Last Admin: 05/27/20 09:39 Dose: Not Given Documented by: Nystatin (Nystop) 0 gm TOP QID PRN PRN Reason: Rash Last Admin: 05/26/20 23:34 Dose: 1 applic Documented by: Oxycodone HCl (Oxycodone) 5 mg PO Q4H PRN PRN Reason: Pain (moderate 4-6) Last Admin: 05/24/20 07:20 Dose: 5 mg Documented by: Oxycodone HCl (Oxycodone) 10 mg PO Q4H PRN PRN Reason: Pain (moderate 4-6) Last Admin: 05/28/20 14:50 Dose: 10 mg Documented by: Pantoprazole Sodium (Protonix) 40 mg PO BID [facility] Last Admin: 05/23/20 21:18 Dose: 40 mg Documented by: Potassium Chloride (Klor-Con M20) 40 meq PO ONETIME ONE Stop: 05/24/20 10:01 Last Admin: 05/24/20 10:45 Dose: 40 meq Documented by: Sodium Chloride (Saline Flush) 10 ml FLUSH ASDIRECTED PRN PRN Reason: Keep Vein Open Sodium Chloride (Saline Flush) 10 ml FLUSH ONETIME ONE Stop: 05/23/20 10:46 Last Admin: 05/23/20 20:06 Dose: Not Given Documented by: Sodium Chloride (Saline Flush) 10 ml FLUSH ONETIME ONE Stop: 05/23/20 12:10 Last Admin: 05/23/20 12:40 Dose: 10 ml Documented by: - Exam Quality Assessment: Supplemental Oxygen General: Alert, Oriented, Cooperative, No Acute Distress Neck: JVD Lungs: Normal Respiratory Effort, Decreased Breath Sounds (mild both bases) Cardiovascular: Regular Rate, Regular Rhythm GI/Abdominal Exam: Soft, No Distention Extremities: Pedal Edema. No: Increased Warmth Skin: Warm, Dry Psy/Mental Status: Alert, Normal Affect Sepsis Event Note - Evaluation Sepsis Screening Result: No Definite Risk - Focused Exam Vital Signs: Vital Signs Temp Temp Pulse Pulse Resp BP BP 05/29/20 09:00 120 H 20 103/59 L 05/29/20 08:00 121 H 19 120/71 05/29/20 07:00 36.9 C 118 H 118 H 20 120/71 05/29/20 06:00 16 104/68 05/29/20 05:00 17 126/73 05/29/20 04:00 20 129/78 05/29/20 03:00 14 135/87 05/29/20 02:00 36.6 C 16 128/69 05/29/20 01:00 17 131/85 05/29/20 00:00 15 121/72 05/28/20 23:00 11 L 93/62 05/28/20 22:00 36.8 C 13 98/56 L Pulse Ox 05/29/20 09:00 94 L 05/29/20 08:00 92 L 05/29/20 07:00 93 L 05/29/20 06:00 95 05/29/20 05:00 94 L 05/29/20 04:00 93 L 05/29/20 03:00 90 L 05/29/20 02:00 90 L 05/29/20 01:00 92 L 05/29/20 00:00 91 L 05/28/20 23:00 95 05/28/20 22:00 94 L Date Exam was Performed: 05/29/20 Time Exam was Performed: 12:49 - Problem List Review Problem List Initiated/Reviewed/Updated: Yes - My Orders Last 24 Hours: My Active Orders 05/28/20 09:25 PT Evaluation and Treatment [CONS] Routine 05/28/20 17:13 Resuscitation Status Routine 05/29/20 02:00 Furosemide [Lasix] 40 mg IVPUSH Q8H 05/29/20 09:33 oxyCODONE 5 mg PO Q4H PRN 05/29/20 12:00 Insert Bhardwaj Catheter [Insert Urinary Catheter] [OM.PC] Q24H 05/30/20 05:00 BASIC METABOLIC PANEL,BMP [CHEM] Timed - Plan Plan:: ASSESSMENT AND PLAN HFpEF-echo showed normal to hyperdynamic left ventricle but right heart failure with enlarged right ventricle, tricuspid regurgitation and pulmonary hypertension noted as well. We did have to increase her furosemide dosing slightly but still doing fairly well with diuresis. Kidney function has remained stable. -Continue low-dose dopamine -Furosemide IV every 8 hours -Bhardwaj catheter for strict intake and output monitoring -Hold beta-kalia -Consider amlodipine for pulmonary hypertension if blood pressure will allow (blood pressure has not allowed so far) -Wrap lower legs to help with edema -2 g sodium diet YEAST DERMATITIS-Luz Maria infection noted under abdominal folds. This is finally starting to get better with less pain and erythema. -Continue nystatin CHRONIC PULMONARY EMBOLI-noted on CT scan of the chest. This could be contributing to her right heart failure. Lower extremity ultrasound was negative. -Apixaban 10 mg p.o. twice daily x7 days, then 5 mg twice daily thereafter -Supplemental oxygen as needed GENERALIZED WEAKNESS-still quite weak and requires a fair amount of assistance. -PT/OT consults -Plan for discharged home with home care and home PT OT ACUTE CYSTITIS-recently prescribed cefuroxime to treat infection with strep anginosis. -She has completed antibiotic therapy TYPE 2 DIABETES MELLITUS-blood sugars have been acceptable. -Continue metformin -4 times daily glucometers MAINTENANCE ISSUES -DVT prophylaxis; apixaban -GI prophylaxis; not indicated -Bhardwaj catheter; not indicated -Nutrition; 2 g sodium diet DISPOSITION-anticipate discharge to home with home care after the hospital stay. Jordan Augustine MD
[2020-05-29] MEDS: Apixaban 5 MG Tab PO SCH ×2 (09:50→21:23)
[2020-05-29] MEDS: Nystatin Topical Powder 15 GM Bottle TOP SCH ×3 (09:50→21:23)
[2020-05-29] MEDS: BETOPTIC S 0.25% EYEBOTH SCH ×2 (09:50→21:22)
[2020-05-29] MEDS: Aspirin 81 MG Tab.EC PO SCH (09:50)
[2020-05-29] MEDS: oxyCODONE 5 MG Tab PO PRN ×2 (11:28→16:40)
[2020-05-29] MEDS: DOPamine/Dextrose 5%-Water 400 MG/250 ML BAG IV SCH (14:00)
[2020-05-29] MEDS: Metoprolol Tartrate 50 MG Tab PO SCH (21:11)
[2020-05-29] MEDS: Pramipexole 0.5 MG Tab PO SCH (21:23)
[2020-05-29] MEDS: Melatonin 3 MG Tab PO SCH (21:23)
[2020-05-29] MEDS: Carbidopa/Levodopa 25-100 MG Tab PO SCH (21:24)
[2020-05-29] MEDS: LATANOPROST 0.005% EYEBOTH SCH (21:24)
[2020-05-30] MEDS: Furosemide 40 MG/4 ML VIAL IVPUSH SCH (03:22)
[2020-05-30] MEDS: DOPamine/Dextrose 5%-Water 400 MG/250 ML BAG IV SCH (03:23)
[2020-05-30] MEDS: Pantoprazole 40 MG Tab.CR PO SCH ×2 (08:15→16:53)
[2020-05-30] MEDS: metFORMIN 500 MG Tab PO SCH ×2 (08:33→17:57)
[2020-05-30] MEDS: Apixaban 5 MG Tab PO SCH ×2 (08:34→21:00)
[2020-05-30] MEDS: Aspirin 81 MG Tab.EC PO SCH (08:34)
[2020-05-30] MEDS: Metoprolol Tartrate 50 MG Tab PO SCH (08:35)
[2020-05-30] MEDS: BETOPTIC S 0.25% EYEBOTH SCH ×2 (08:36→21:00)
[2020-05-30] MEDS: Nystatin Topical Powder 15 GM Bottle TOP SCH ×3 (09:00→21:01)
--- NOTE | 2020-05-30 09:36 | PCM.PN ---
- General Info Date of Service: 05/30/20 Subjective Update: There were no acute events overnight. Urine output has been trailing off despite the furosemide. Blood pressures have remained stable on the dopamine. She feels a little more short of breath today. She feels weak. Continues to have less pain under her skin folds in the areas of the yeast dermatitis. Kidney function down slightly from yesterday. She has been tachycardic with the dopamine but this has been stable. No fevers. We did try to wean the dopamine today. She did okay with the dose decrease but then when the medication was stopped her blood pressure dropped significantly with systolic pressures in the 40s. She was very lethargic. She is coming around with restarting the dopamine and a fluid bolus. Functional Status: Reports: Pain Controlled, Tolerating Diet - Review of Systems General: Reports: Weakness Pulmonary: Reports: Shortness of Breath - Patient Data Vitals - Most Recent: Last Vital Signs Temp 36.6 C 05/30/20 04:00 Pulse 118 H 05/30/20 08:35 Resp 14 05/30/20 08:00 BP 128/87 05/30/20 08:35 Pulse Ox 95 05/30/20 08:00 Weight - Most Recent: 100.97 kg I&O - Last 24 Hours: Intake & Output 05/29/20 05/30/20 05/30/20 22:59 06:59 14:59 Intake Total 400 946 Output Total 600 500 Balance -200 446 Lab Results Last 24 Hours: Laboratory Results - last 24 hr 05/30/20 Range/Units 05:00 Sodium 129 L (140-148) mmol/L Potassium 5.0 (3.6-5.2) mmol/L Chloride 94 L (100-108) mmol/L Carbon Dioxide 32 (21-32) mmol/L Anion Gap 8.0 (5.0-14.0) mmol/L BUN 17 (7-18) mg/dL Creatinine 1.1 H (0.6-1.0) mg/dL Est Cr Clr Drug Dosing 29.30 mL/min Estimated GFR (MDRD) 48 L (>60) Glucose 139 H (74-106) mg/dL Calcium 8.5 (8.5-10.1) mg/dL Med Orders - Current: Current Medications Acetaminophen (Tylenol) 650 mg PO Q4H PRN PRN Reason: Pain (Mild 1-3)/fever Last Admin: 05/28/20 16:29 Dose: 650 mg Documented by: Apixaban (Eliquis) 5 mg PO BID [facility] Aspirin (Halfprin) 81 mg PO DAILY [facility] Last Admin: 05/30/20 08:34 Dose: 81 mg Documented by: Carbidopa/Levodopa (Sinemet 25-100 Mg) 1 tab PO BEDTIME [facility] Last Admin: 05/29/20 21:24 Dose: 1 tab Documented by: Dextrose (Glutose 15) 15 gm PO ONETIME PRN PRN Reason: Hypoglycemia Dextrose/Water (Dextrose 50% In Water) 50 ml IV ONETIME PRN PRN Reason: Hypoglycemia Diclofenac Sodium (Voltaren 1% Gel) 1 gm TOP QID PRN PRN Reason: Pain Last Admin: 05/28/20 14:50 Dose: 1 ea Documented by: Latanoprost (Xalatan 0.005% Ophth Soln) 0 ml EYEBOTH BEDTIME [facility] Last Admin: 05/29/20 21:24 Dose: 1 drop Documented by: Melatonin (Melatonin) 9 mg PO BEDTIME [facility] Last Admin: 05/29/20 21:23 Dose: 9 mg Documented by: Metformin HCl (Glucophage) 1,000 mg PO BIDMEALS [facility] Last Admin: 05/30/20 08:33 Dose: 1,000 mg Documented by: Betoptic-S 0.25% (Ophth Ptom) 0 drop EYEBOTH BID [facility] Last Admin: 05/30/20 08:36 Dose: 1 drop Documented by: Nystatin (Nystop) 1 gm TOP TID [facility] Last Admin: 05/30/20 09:00 Dose: 1 gm Documented by: Ondansetron HCl (Zofran) 4 mg IV Q4H PRN PRN Reason: Nausea/Vomiting Last Admin: 05/28/20 01:32 Dose: 4 mg Documented by: Oxcarbazepine (Trileptal) 300 mg PO BID PRN PRN Reason: Pain Last Admin: 05/25/20 16:26 Dose: 300 mg Documented by: Oxycodone HCl (Oxycodone) 5 mg PO Q4H PRN PRN Reason: Pain (moderate 4-6) Last Admin: 05/29/20 16:40 Dose: 5 mg Documented by: Pantoprazole Sodium (Protonix) 40 mg PO BIDAC [facility] Last Admin: 05/30/20 08:15 Dose: 40 mg Documented by: Polyethylene Glycol (Miralax) 17 gm PO DAILY PRN PRN Reason: Constipation Last Admin: 05/25/20 16:12 Dose: 17 gm Documented by: Pramipexole Dihydrochloride (Mirapex) 0.5 mg PO BEDTIME [facility] Last Admin: 05/29/20 21:23 Dose: 0.5 mg Documented by: Sodium Chloride (Saline Flush) 10 ml FLUSH ASDIRECTED PRN PRN Reason: Keep Vein Open Discontinued Medications Apixaban (Eliquis) 10 mg PO BID [facility] Stop: 05/30/20 09:01 Last Admin: 05/30/20 08:34 Dose: 10 mg Documented by: Cephalexin (Keflex) 500 mg PO BID [facility] Stop: 05/27/20 09:01 Last Admin: 05/27/20 09:25 Dose: 500 mg Documented by: Fentanyl (Sublimaze) 50 mcg IVPUSH ONETIME ONE Stop: 05/23/20 10:35 Last Admin: 05/23/20 10:49 Dose: 50 mcg Documented by: Furosemide (Lasix) 40 mg IVPUSH Q12H [facility] Last Admin: 05/26/20 11:36 Dose: Not Given Documented by: Furosemide (Lasix) 20 mg IVPUSH NOW ONE Stop: 05/27/20 14:01 Last Admin: 05/27/20 12:59 Dose: 20 mg Documented by: Furosemide (Lasix) 20 mg IVPUSH ONETIME ONE Stop: 05/28/20 01:01 Last Admin: 05/28/20 01:27 Dose: 20 mg Documented by: Furosemide (Lasix) 20 mg IVPUSH Q8H [facility] Last Admin: 05/28/20 18:25 Dose: 20 mg Documented by: Furosemide (Lasix) 40 mg IVPUSH Q8H [facility] Last Admin: 05/30/20 03:22 Dose: Not Given Documented by: Sodium Chloride (Normal Saline) 1,000 mls @ 125 mls/hr IV ASDIRECTED [facility] Last Admin: 05/23/20 10:51 Dose: 125 mls/hr Documented by: Sodium Chloride (Normal Saline) 80 mls @ 3 mls/sec IV ASDIRECTED [facility] Stop: 05/23/20 10:46 Sodium Chloride (Normal Saline) 75 mls @ 3 mls/sec IV ASDIRECTED [facility] Stop: 05/23/20 13:00 Last Admin: 05/23/20 12:40 Dose: 3 mls/sec Documented by: Sodium Chloride (Normal Saline) 1,000 mls @ 100 mls/hr IV ASDIRECTED [facility] Last Admin: 05/24/20 08:59 Dose: 100 mls/hr Documented by: Sodium Chloride (Normal Saline) 1,000 mls @ 500 mls/hr IV ONETIME ONE Stop: 05/24/20 01:14 Last Admin: 05/23/20 23:19 Dose: 500 mls/hr Documented by: Magnesium Sulfate 2 gm/ Premix 50 mls @ 12.5 mls/hr IV Q6H [facility] Stop: 05/25/20 13:59 Last Admin: 05/25/20 10:19 Dose: 12.5 mls/hr Documented by: Dopamine HCl/Dextrose (Dopamine In D5w 400 Mg/250 Ml) 400 mg in 250 mls @ 7.573 mls/hr IV TITRATE [facility]; Protocol Last Admin: 05/30/20 03:23 Dose: 5 mcg/kg/min, 18.932 mls/hr Documented by: Magnesium Sulfate 2 gm/ Premix 50 mls @ 25 mls/hr IV Q6H [facility] Stop: 05/28/20 16:59 Last Admin: 05/28/20 16:15 Dose: 25 mls/hr Documented by: Insulin Human Lispro (Humalog) 0 unit SUBCUT QIDACANDBED [facility]; Protocol Last Admin: 05/24/20 15:01 Dose: Not Given Documented by: Iopamidol (Isovue-300 (61%)) 100 ml IV . DIRECTED [facility] Stop: 05/23/20 10:46 Iopamidol (Isovue-300 (61%)) 100 ml IV . DIRECTED [facility] Stop: 05/23/20 13:00 Last Admin: 05/23/20 12:40 Dose: 100 ml Documented by: Losartan Potassium (Cozaar) 100 mg PO DAILY [facility] Last Admin: 05/27/20 09:39 Dose: Not Given Documented by: Metoprolol Tartrate (Lopressor) 50 mg PO BID [facility] Last Admin: 05/30/20 08:35 Dose: 50 mg Documented by: Nystatin (Nystop) 0 gm TOP QID PRN PRN Reason: Rash Last Admin: 05/26/20 23:34 Dose: 1 applic Documented by: Oxycodone HCl (Oxycodone) 5 mg PO Q4H PRN PRN Reason: Pain (moderate 4-6) Last Admin: 05/24/20 07:20 Dose: 5 mg Documented by: Oxycodone HCl (Oxycodone) 10 mg PO Q4H PRN PRN Reason: Pain (moderate 4-6) Last Admin: 05/28/20 14:50 Dose: 10 mg Documented by: Pantoprazole Sodium (Protonix) 40 mg PO BID [facility] Last Admin: 05/23/20 21:18 Dose: 40 mg Documented by: Potassium Chloride (Klor-Con M20) 40 meq PO ONETIME ONE Stop: 05/24/20 10:01 Last Admin: 05/24/20 10:45 Dose: 40 meq Documented by: Sodium Chloride (Saline Flush) 10 ml FLUSH ASDIRECTED PRN PRN Reason: Keep Vein Open Sodium Chloride (Saline Flush) 10 ml FLUSH ONETIME ONE Stop: 05/23/20 10:46 Last Admin: 05/23/20 20:06 Dose: Not Given Documented by: Sodium Chloride (Saline Flush) 10 ml FLUSH ONETIME ONE Stop: 05/23/20 12:10 Last Admin: 05/23/20 12:40 Dose: 10 ml Documented by: - Exam Quality Assessment: Supplemental Oxygen General: Alert, Oriented, Cooperative, No Acute Distress Lungs: Normal Respiratory Effort, Crackles (mild both bases). No: Wheezing Cardiovascular: Regular Rhythm, Tachycardia GI/Abdominal Exam: Soft, No Distention Extremities: Pedal Edema. No: Increased Warmth Skin: Warm, Dry Psy/Mental Status: Alert, Normal Affect Sepsis Event Note - Evaluation Sepsis Screening Result: No Definite Risk - Focused Exam Vital Signs: Vital Signs Temp Pulse Pulse Resp BP BP Pulse Ox 05/30/20 08:35 118 H 128/87 05/30/20 08:00 115 H 14 128/87 95 05/30/20 07:00 116 H 20 122/81 94 L 05/30/20 06:00 116 H 12 121/72 95 05/30/20 05:00 117 H 10 L 118/69 93 L 05/30/20 04:00 36.6 C 115 H 15 108/69 93 L 05/30/20 03:00 121 H 16 105/64 97 05/30/20 02:00 119 H 15 105/63 97 05/30/20 01:00 117 H 17 96/61 96 05/30/20 00:00 35.8 C L 118 H 15 106/70 89 L 05/29/20 23:00 117 H 16 98/68 95 05/29/20 22:00 115 H 12 88/59 L 90 L Date Exam was Performed: 05/30/20 Time Exam was Performed: 13:57 - Problem List Review Problem List Initiated/Reviewed/Updated: Yes - My Orders Last 24 Hours: My Active Orders 05/29/20 09:33 oxyCODONE 5 mg PO Q4H PRN 05/29/20 09:55 Communication Order [RC] ROUTINE 05/30/20 12:00 Insert Bhardwaj Catheter [Insert Urinary Catheter] [OM.PC] Q24H 05/31/20 05:00 BASIC METABOLIC PANEL,BMP [CHEM] Timed MAGNESIUM [CHEM] Timed - Plan Plan:: ASSESSMENT AND PLAN HFpEF-echo showed normal to hyperdynamic left ventricle but right heart failure with enlarged right ventricle, tricuspid regurgitation and pulmonary hypertension noted as well. We have reached the end of diuresis. She did not tolerate weaning of the dopamine. She did receive a dose of metoprolol this morning and this may be contributing to the hypotension as well. I reviewed the situation with her 3 sons. They are aware of her recent decline as well as the difficult nature of her heart failure. They are in agreement that we try to fine tune medications with the hope of some improvement but agree with a transition to comfort cares if she is not able to be weaned off the vasopressor. -Transition to norepinephrine -Gentle IV fluids -No diuresis -Bhardwaj catheter for strict intake and output monitoring -Hold beta-kalia -Consider amlodipine for pulmonary hypertension if blood pressure will allow (blood pressure has not allowed so far) -Wrap lower legs to help with edema -2 g sodium diet YEAST DERMATITIS-Luz Maria infection noted under abdominal folds. Slowly getting better. -Continue nystatin CHRONIC PULMONARY EMBOLI-noted on CT scan of the chest. This could be contributing to her right heart failure. Lower extremity ultrasound was negative. -Apixaban 10 mg p.o. twice daily x7 days, then 5 mg twice daily thereafter -Supplemental oxygen as needed GENERALIZED WEAKNESS-still quite weak and requires a fair amount of assistance. -PT/OT consults -Plan for discharged home with home care and home PT OT versus potentially hospice ACUTE CYSTITIS-recently prescribed cefuroxime to treat infection with strep anginosis. -She has completed antibiotic therapy TYPE 2 DIABETES MELLITUS-blood sugars have been acceptable. -Continue metformin -4 times daily glucometers MAINTENANCE ISSUES -DVT prophylaxis; apixaban -GI prophylaxis; not indicated -Bhardwaj catheter; not indicated -Nutrition; 2 g sodium diet DISPOSITION-anticipate discharge to home with home care or possibly hospice after the hospital stay. Jordan Augustine MD
[2020-05-30] MEDS: Acetaminophen 325 MG Tab PO PRN (10:23)
[2020-05-30] MEDS ORDERED: DOPamine/Dextrose 5%-Water 400 MG/250 ML BAG IV SCH (11:15)
[2020-05-30] MEDS ORDERED: Sodium Chloride 0.9% 500 ML IV SCH ×3 (11:15→14:30)
[2020-05-30] MEDS: Norepinephrine 4 MG in Dextrose 5% in Water 246 ML IV SCH ×4 (13:27→19:25)
[2020-05-30] MEDS: Sodium Chloride 0.9% 1,000 ML IV SCH ×2 (13:44→16:45)
[2020-05-30] MEDS ORDERED: Phenazopyridine 95 MG Tab PO PRN (14:34)
[2020-05-30] MEDS: Melatonin 3 MG Tab PO SCH (21:00)
[2020-05-30] MEDS: LATANOPROST 0.005% EYEBOTH SCH (21:01)
[2020-05-30] MEDS: Diclofenac Sodium 1% Gel 100 GM Tube TOP PRN (21:01)
[2020-05-30] MEDS: Carbidopa/Levodopa 25-100 MG Tab PO SCH (21:01)
[2020-05-30] MEDS: Pramipexole 0.5 MG Tab PO SCH (21:01)
[2020-05-31] MEDS: Norepinephrine 4 MG in Dextrose 5% in Water 246 ML IV SCH ×4 (01:24→09:10)
[2020-05-31] MEDS: Sodium Chloride 0.9% 1,000 ML IV SCH (02:40)
[2020-05-31] MEDS: metFORMIN 500 MG Tab PO SCH ×2 (08:17→17:28)
[2020-05-31] MEDS: Pantoprazole 40 MG Tab.CR PO SCH ×2 (08:17→17:28)
[2020-05-31] MEDS: BETOPTIC S 0.25% EYEBOTH SCH ×2 (08:19→21:11)
[2020-05-31] MEDS: Aspirin 81 MG Tab.EC PO SCH (08:42)
[2020-05-31] MEDS: Apixaban 5 MG Tab PO SCH ×2 (08:42→21:12)
[2020-05-31] MEDS: Nystatin Topical Powder 15 GM Bottle TOP SCH ×3 (08:43→21:12)
[2020-05-31] MEDS: Magnesium Sulfate/Water 2 GM in Premix Bag 1 BAG IV SCH ×3 (09:02→21:09)
--- NOTE | 2020-05-31 09:07 | PCM.PN ---
- General Info Date of Service: 05/31/20 Subjective Update: No acute events overnight. Urine output has not been great. Shortness of breath is at baseline and she does require supplemental oxygen. Heart rate has remained in the 70s. She does continue to require norepinephrine to maintain her blood pressure though the dose has been decreasing. We talked with 3 of her sons today. The patient feels tired and she and her sons think that a transition to hospice may be in her best interest. They have had previous e xperience with hospice care and felt that it was very beneficial when her /their father was at the end of his life. Her qualifying diagnosis would be congestive heart failure. She wants to be at home and has several family members as well as friends in the area that would be able to provide care. Functional Status: Reports: Pain Controlled, Tolerating Diet - Review of Systems General: Reports: Weakness. Denies: Fever Pulmonary: Reports: Shortness of Breath - Patient Data Vitals - Most Recent: Last Vital Signs Temp 36.6 C 05/31/20 07:15 Pulse 74 05/31/20 07:15 Resp 15 05/31/20 07:15 BP 112/58 L 05/31/20 07:15 Pulse Ox 96 05/31/20 07:15 Weight - Most Recent: 100.97 kg I&O - Last 24 Hours: Intake & Output 05/30/20 05/31/20 05/31/20 22:59 06:59 14:59 Intake Total 400 1778 Output Total 40 15 Balance 360 1763 Lab Results Last 24 Hours: Laboratory Results - last 24 hr 05/31/20 Range/Units 05:50 Sodium 128 L (140-148) mmol/L Potassium 5.4 H (3.6-5.2) mmol/L Chloride 94 L (100-108) mmol/L Carbon Dioxide 29 (21-32) mmol/L Anion Gap 10.4 (5.0-14.0) mmol/L BUN 24 H (7-18) mg/dL Creatinine 1.5 H (0.6-1.0) mg/dL Est Cr Clr Drug Dosing 21.49 mL/min Estimated GFR (MDRD) 33 L (>60) Glucose 140 H (74-106) mg/dL Calcium 8.2 L (8.5-10.1) mg/dL Magnesium 1.5 L (1.8-2.4) mg/dL Med Orders - Current: Current Medications Acetaminophen (Tylenol) 650 mg PO Q4H PRN PRN Reason: Pain (Mild 1-3)/fever Last Admin: 05/30/20 10:23 Dose: 650 mg Documented by: Apixaban (Eliquis) 5 mg PO BID [facility] Last Admin: 05/31/20 08:42 Dose: 5 mg Documented by: Aspirin (Halfprin) 81 mg PO DAILY [facility] Last Admin: 05/31/20 08:42 Dose: 81 mg Documented by: Carbidopa/Levodopa (Sinemet 25-100 Mg) 1 tab PO BEDTIME [facility] Last Admin: 05/30/20 21:01 Dose: 1 tab Documented by: Dextrose (Glutose 15) 15 gm PO ONETIME PRN PRN Reason: Hypoglycemia Dextrose/Water (Dextrose 50% In Water) 50 ml IV ONETIME PRN PRN Reason: Hypoglycemia Diclofenac Sodium (Voltaren 1% Gel) 1 gm TOP QID PRN PRN Reason: Pain Last Admin: 05/30/20 21:01 Dose: 1 ea Documented by: Norepinephrine Bitartrate 4 mg (/ Dextrose/Water) 250 mls @ 7.5 mls/hr IV TITRATE [facility]; Protocol Last Titration: 05/31/20 06:05 Dose: 7 mcg/min, 26.25 mls/hr Documented by: Magnesium Sulfate 2 gm/ Premix 50 mls @ 12.5 mls/hr IV Q6H [facility] Stop: 06/01/20 00:59 Last Admin: 05/31/20 09:02 Dose: 12.5 mls/hr Documented by: Sodium Chloride (Normal Saline) 1,000 mls @ 25 mls/hr IV ASDIRECTED [facility] Latanoprost (Xalatan 0.005% Ophth Soln) 0 ml EYEBOTH BEDTIME [facility] Last Admin: 05/30/20 21:01 Dose: 1 drop Documented by: Melatonin (Melatonin) 9 mg PO BEDTIME [facility] Last Admin: 05/30/20 21:00 Dose: 9 mg Documented by: Metformin HCl (Glucophage) 1,000 mg PO BIDMEALS [facility] Last Admin: 05/31/20 08:17 Dose: 1,000 mg Documented by: Betoptic-S 0.25% (Ophth Ptom) 0 drop EYEBOTH BID [facility] Last Admin: 05/31/20 08:19 Dose: 1 drop Documented by: Nystatin (Nystop) 1 gm TOP TID [facility] Last Admin: 05/31/20 08:43 Dose: 1 gm Documented by: Ondansetron HCl (Zofran) 4 mg IV Q4H PRN PRN Reason: Nausea/Vomiting Last Admin: 05/28/20 01:32 Dose: 4 mg Documented by: Oxcarbazepine (Trileptal) 300 mg PO BID PRN PRN Reason: Pain Last Admin: 05/25/20 16:26 Dose: 300 mg Documented by: Oxycodone HCl (Oxycodone) 5 mg PO Q4H PRN PRN Reason: Pain (moderate 4-6) Last Admin: 05/29/20 16:40 Dose: 5 mg Documented by: [facility]oprazole [facility]) [facility] Last Admin: 05/31/20 08:17 Dose: 40 mg Documented by: Phenazopyridine HCl (Urinary Pain Relief) 95 mg PO Q6H PRN PRN Reason: urinary urgency Last Admin: 05/30/20 18:49 Dose: 95 mg Documented by: Polyethylene Glycol (Miralax) 17 gm PO DAILY PRN PRN Reason: Constipation Last Admin: 05/25/20 16:12 Dose: 17 gm Documented by: Pramipexole Dihydrochloride (Mirapex) 0.5 mg PO BEDTIME [facility] Last Admin: 05/30/20 21:01 Dose: 0.5 mg Documented by: Sodium Chloride (Saline Flush) 10 ml FLUSH ASDIRECTED PRN PRN Reason: Keep Vein Open Discontinued Medications Apixaban (Eliquis) 10 mg PO BID [facility] Stop: 05/30/20 09:01 Last Admin: 05/30/20 08:34 Dose: 10 mg Documented by: Cephalexin (Keflex) 500 mg PO BID [facility] Stop: 05/27/20 09:01 Last Admin: 05/27/20 09:25 Dose: 500 mg Documented by: Fentanyl (Sublimaze) 50 mcg IVPUSH ONETIME ONE Stop: 05/23/20 10:35 Last Admin: 05/23/20 10:49 Dose: 50 mcg Documented by: Furosemide (Lasix) 40 mg IVPUSH Q12H [facility] Last Admin: 05/26/20 11:36 Dose: Not Given Documented by: Furosemide (Lasix) 20 mg IVPUSH NOW ONE Stop: 05/27/20 14:01 Last Admin: 05/27/20 12:59 Dose: 20 mg Documented by: Furosemide (Lasix) 20 mg IVPUSH ONETIME ONE Stop: 05/28/20 01:01 Last Admin: 05/28/20 01:27 Dose: 20 mg Documented by: Furosemide (Lasix) 20 mg IVPUSH Q8H [facility] Last Admin: 05/28/20 18:25 Dose: 20 mg Documented by: Furosemide (Lasix) 40 mg IVPUSH Q8H [facility] Last Admin: 05/30/20 03:22 Dose: Not Given Documented by: Sodium Chloride (Normal Saline) 1,000 mls @ 125 mls/hr IV ASDIRECTED [facility] Last Admin: 05/23/20 10:51 Dose: 125 mls/hr Documented by: Sodium Chloride (Normal Saline) 80 mls @ 3 mls/sec IV ASDIRECTED [facility] Stop: 05/23/20 10:46 Sodium Chloride (Normal Saline) 75 mls @ 3 mls/sec IV ASDIRECTED [facility] Stop: 05/23/20 13:00 Last Admin: 05/23/20 12:40 Dose: 3 mls/sec Documented by: Sodium Chloride (Normal Saline) 1,000 mls @ 100 mls/hr IV ASDIRECTED [facility] Last Admin: 05/24/20 08:59 Dose: 100 mls/hr Documented by: Sodium Chloride (Normal Saline) 1,000 mls @ 500 mls/hr IV ONETIME ONE Stop: 05/24/20 01:14 Last Admin: 05/23/20 23:19 Dose: 500 mls/hr Documented by: Magnesium Sulfate 2 gm/ Premix 50 mls @ 12.5 mls/hr IV Q6H [facility] Stop: 05/25/20 13:59 Last Admin: 05/25/20 10:19 Dose: 12.5 mls/hr Documented by: Dopamine HCl/Dextrose (Dopamine In D5w 400 Mg/250 Ml) 400 mg in 250 mls @ 7.573 mls/hr IV TITRATE [facility]; Protocol Last Titration: 05/30/20 10:25 Dose: 0 mcg/kg/min, 0 mls/hr Documented by: Magnesium Sulfate 2 gm/ Premix 50 mls @ 25 mls/hr IV Q6H [facility] Stop: 05/28/20 16:59 Last Admin: 05/28/20 16:15 Dose: 25 mls/hr Documented by: Dopamine HCl/Dextrose (Dopamine In D5w 400 Mg/250 Ml) 400 mg in 250 mls @ 11.359 mls/hr IV TITRATE [facility]; Protocol Last Titration: 05/30/20 13:31 Dose: 0 mcg/kg/min, 0 mls/hr Documented by: Sodium Chloride (Normal Saline) 500 mls @ 999 mls/hr IV ASDIRECTED [facility] Stop: 05/30/20 11:46 Sodium Chloride (Normal Saline) 500 mls @ 999 mls/hr IV ASDIRECTED [facility] Stop: 05/30/20 12:31 Sodium Chloride (Normal Saline) 1,000 mls @ 100 mls/hr IV ASDIRECTED [facility] Last Admin: 05/31/20 02:40 Dose: 100 mls/hr Documented by: Sodium Chloride (Normal Saline) 500 mls @ 500 mls/hr IV ASDIRECTED [facility] Stop: 05/30/20 15:31 Insulin Human Lispro (Humalog) 0 unit SUBCUT QIDACANDBED [facility]; Protocol Last Admin: 05/24/20 15:01 Dose: Not Given Documented by: Iopamidol (Isovue-300 (61%)) 100 ml IV . DIRECTED [facility] Stop: 05/23/20 10:46 Iopamidol (Isovue-300 (61%)) 100 ml IV . DIRECTED [facility] Stop: 05/23/20 13:00 Last Admin: 05/23/20 12:40 Dose: 100 ml Documented by: Losartan Potassium (Cozaar) 100 mg PO DAILY [facility] Last Admin: 05/27/20 09:39 Dose: Not Given Documented by: Metoprolol Tartrate (Lopressor) 50 mg PO BID [facility] Last Admin: 05/30/20 08:35 Dose: 50 mg Documented by: Nystatin (Nystop) 0 gm TOP QID PRN PRN Reason: Rash Last Admin: 05/26/20 23:34 Dose: 1 applic Documented by: Oxycodone HCl (Oxycodone) 5 mg PO Q4H PRN PRN Reason: Pain (moderate 4-6) Last Admin: 05/24/20 07:20 Dose: 5 mg Documented by: Oxycodone HCl (Oxycodone) 10 mg PO Q4H PRN PRN Reason: Pain (moderate 4-6) Last Admin: 05/28/20 14:50 Dose: 10 mg Documented by: Pantoprazole Sodium (Protonix) 40 mg PO BID [facility] Last Admin: 05/23/20 21:18 Dose: 40 mg Documented by: Potassium Chloride (Klor-Con M20) 40 meq PO ONETIME ONE Stop: 05/24/20 10:01 Last Admin: 05/24/20 10:45 Dose: 40 meq Documented by: Sodium Chloride (Saline Flush) 10 ml FLUSH ASDIRECTED PRN PRN Reason: Keep Vein Open Sodium Chloride (Saline Flush) 10 ml FLUSH ONETIME ONE Stop: 05/23/20 10:46 Last Admin: 05/23/20 20:06 Dose: Not Given Documented by: Sodium Chloride (Saline Flush) 10 ml FLUSH ONETIME ONE Stop: 05/23/20 12:10 Last Admin: 05/23/20 12:40 Dose: 10 ml Documented by: - Exam Quality Assessment: Supplemental Oxygen General: Alert, Oriented, Cooperative, No Acute Distress Lungs: Normal Respiratory Effort, Crackles (both lower lungs) Cardiovascular: Regular Rate, Regular Rhythm GI/Abdominal Exam: Soft, No Distention Extremities: Pedal Edema, Arm Pain (left shoulder and elbow), Other (very limited ROM of left shoulder and elbow ) Skin: Warm, Dry Psy/Mental Status: Alert, Normal Affect Sepsis Event Note - Evaluation Sepsis Screening Result: No Definite Risk - Focused Exam Vital Signs: Vital Signs Temp Pulse Resp BP Pulse Ox 05/31/20 07:15 36.6 C 74 15 112/58 L 96 05/31/20 06:00 74 12 122/75 91 L 05/31/20 05:00 78 12 109/52 L 89 L 05/31/20 04:00 80 8 L 106/56 L 89 L 05/31/20 03:00 36.1 C 78 15 102/64 90 L 05/31/20 02:00 70 14 100/61 93 L 05/31/20 01:00 70 14 87/56 L 94 L 05/31/20 00:00 36.5 C 69 14 103/68 96 05/30/20 23:00 70 13 93/56 L 97 05/30/20 22:00 78 13 107/66 94 L Date Exam was Performed: 05/31/20 Time Exam was Performed: 13:18 - Problem List Review Problem List Initiated/Reviewed/Updated: Yes - My Orders Last 24 Hours: My Active Orders 05/30/20 11:48 EKG 12 Lead [EK] Urgent 05/30/20 12:00 Insert Bhardwaj Catheter [Insert Urinary Catheter] [OM.PC] Q24H 05/30/20 13:30 Norepinephrine [Levophed] 4 mg Dextrose 5% in Water 246 ml IV TITRATE 05/30/20 14:34 Phenazopyridine [Urinary Pain Relief] 95 mg PO Q6H PRN 05/31/20 09:00 Magnesium Sulfate/Water [Magnesium Sulfate in Water Premix] 2 gm Premix Bag 1 bag IV Q6H 05/31/20 09:03 Elbow 2V Lt [CR] Routine Shoulder 1V Lt [CR] Routine 05/31/20 09:15 Sodium Chloride 0.9% [Normal Saline] 1,000 ml IV ASDIRECTED - Plan Plan:: ASSESSMENT AND PLAN HFpEF-echo showed normal to hyperdynamic left ventricle but right heart failure with enlarged right ventricle, tricuspid regurgitation and pulmonary hypertension noted as well. Hypotensive since the vasopressor support was weaned yesterday morning. She has been responding to norepinephrine and we have been able to wean this down some. Planning a transition to more of a comfort based approach given her poor prognosis with severe right-sided heart failure. -Continue norepinephrine, wean as able -No diuresis -Bhardwaj catheter for strict intake and output monitoring -Hold beta-kalia -Wrap lower legs to help with edema -2 g sodium diet YEAST DERMATITIS-Luz Maria infection noted under abdominal folds. Slowly getting better. -Continue nystatin CHRONIC PULMONARY EMBOLI-noted on CT scan of the chest. This could be contributing to her right heart failure. Lower extremity ultrasound was negative. -Apixaban 10 mg p.o. twice daily x7 days, then 5 mg twice daily thereafter -Supplemental oxygen as needed GENERALIZED WEAKNESS-still quite weak and requires a fair amount of assistance. -Planning transition to comfort based approach. ACUTE CYSTITIS-recently prescribed cefuroxime to treat infection with strep anginosis. -She has completed antibiotic therapy TYPE 2 DIABETES MELLITUS-blood sugars have been acceptable. -Continue metformin -4 times daily glucometers MAINTENANCE ISSUES -DVT prophylaxis; apixaban -GI prophylaxis; not indicated -Bhardwaj catheter; not indicated -Nutrition; 2 g sodium diet DISPOSITION-anticipate discharge to home with hospice after the hospital stay. Jordan Augustine MD
[2020-05-31] MEDS ORDERED: Sodium Chloride 0.9% 1,000 ML IV SCH (09:15)
[2020-05-31] MEDS: oxyCODONE 5 MG Tab PO PRN ×3 (13:34→21:30)
[2020-05-31] MEDS: Melatonin 3 MG Tab PO SCH (21:11)
[2020-05-31] MEDS: Carbidopa/Levodopa 25-100 MG Tab PO SCH (21:12)
[2020-05-31] MEDS: LATANOPROST 0.005% EYEBOTH SCH (21:12)
[2020-05-31] MEDS: Pramipexole 0.5 MG Tab PO SCH (21:12)
[2020-05-31] MEDS: Diclofenac Sodium 1% Gel 100 GM Tube TOP PRN (21:16)
[2020-06-01] MEDS: Norepinephrine 4 MG in Dextrose 5% in Water 246 ML IV SCH ×2 (01:40)
[2020-06-01] MEDS: oxyCODONE 5 MG Tab PO PRN ×2 (03:05→09:53)
[2020-06-01 04:03] VITALS: PULSE 74
[2020-06-01] MEDS: Ondansetron 4 MG/2 ML SDV IV PRN (08:07)
--- NOTE | 2020-06-01 09:15 | PCM.DCSUM1 ---
Discharge Summary - Hospital Course Brief History: 79-year-old female with history of diastolic congestive heart failure, pulmonary hypertension, chronic lymphedema and diabetes mellitus who presented with weakness and shortness of breath as well as increasing edema. She was admitted for management of an exacerbation of her congestive heart failure. Diagnosis: Stroke: No - Discharge Data Discharge Date: 06/01/20 Discharge Disposition: DC/Tfer to Hospice - Home 49 Condition: Poor - Referral to Home Health Primary Care Physician: Josue Vanessa NP - Discharge Diagnosis/Problem(s) (1) Acute heart failure with preserved ejection fraction (HFpEF) SNOMED Code(s): 119991897, 086574051 ICD Code: I50.31 - ACUTE DIASTOLIC (CONGESTIVE) HEART FAILURE Status: Acute (2) Acute cor pulmonale without pulmonary embolism SNOMED Code(s): 56219379 ICD Code: I27.81 - COR PULMONALE (CHRONIC) Status: Acute (3) Pulmonary hypertension SNOMED Code(s): 34452934 ICD Code: I27.20 - PULMONARY HYPERTENSION, UNSPECIFIED Status: Acute (4) Acute kidney injury SNOMED Code(s): 74822687, 63997095 ICD Code: N17.9 - ACUTE KIDNEY FAILURE, UNSPECIFIED Status: Acute (5) Pulmonary embolus, left SNOMED Code(s): 80578885 ICD Code: I26.99 - OTHER PULMONARY EMBOLISM WITHOUT ACUTE COR PULMONALE Status: Acute (6) Type 2 diabetes mellitus SNOMED Code(s): 93640685 ICD Code: E11.9 - TYPE 2 DIABETES MELLITUS WITHOUT COMPLICATIONS Status: Chronic Qualifiers: Diabetes mellitus long-term insulin use: without long-term use Diabetes mellitus complication status: with other specified complication Qualified Code(s): E11.69 - Type 2 diabetes mellitus with other specified complication (7) Acute cystitis with positive culture SNOMED Code(s): 116482428 ICD Code: N30.00 - ACUTE CYSTITIS WITHOUT HEMATURIA Status: Acute - Patient Summary/Data Hospital Course: Zaria presented to the emergency room with progressive weakness as well as progressive shortness of breath and increasing edema of lower extremities that extended up onto her abdomen. Work-up in the emergency room was suggestive of an exacerbation of congestive heart failure. She was currently receiving treatment for a urinary tract infection. Given the profound anemia the decision was made to admit for IV diuresis as well as further work-up of her heart failure. Initially she appeared to be volume deplete as far as the intravascular space was concerned so she received some gentle IV fluids prior to initiation of diuretic therapy. She was on oral antibiotics for her urinary tract infection. We did not have a very good response to the IV diuretics and doses were escalated. This led to hypotension but not much in the way of improvement of edema. We did obtain an echocardiogram which showed a normal left ventricular function but severely reduced right ventricular function with a dilated and minimally functioning right ventricle. Also noted was significant pulmonary hypertension. Our hope was that we could start a calcium channel kalia to see if we can improve her pulmonary hypertension but unfortunately we were not able to have adequate blood pressure to initiate this medication. Additional attempts at diuresis were undertaken along with compression wrapping of both lower legs. She did not respond well to the diuresis. I elected to transfer her to the intensive care unit with the hope that an infusion of dobutamine could help augment her cardiac output and improve kidney perfusion and diuresis. Initially we did see some response with the diuresis but when we tried to wean the dopamine we had significant hypotension. She remained on the dopamine overnight and then we tried to wean it again with recurrence of hypotension. She did get a small amount of fluid back but had persistent hypotension so she was transitioned to norepinephrine. I sat down with 3 of her sons and discussed the situation. We reviewed her significant congestive heart failure and the difficulties that arise with trying to treat severe right heart failure with pulmonary hypertension. The sons felt that she has had a significant decline recently. They did not feel that more aggressive intervention would be within her wishes. The patient felt the same way also. She was interested in more of a comfort based approach. We elected to discontinue the IV infusions. The patient will be discharged home with hospice. She is very comfortable with this approach as is the rest of her family. Also noted during the hospital stay was a CT scan that showed a chronic pulmonary embolus in the left pulmonary artery. She was started on apixaban during the hospital stay. She has tolerated this well and the plan is to continue it after hospital discharge with the hope that any improvement in her pulmonary arterial flow will be beneficial for her comfort and quality of life. Her kidney function has remained relatively stable throughout the hospital stay with only a slight decline towards the end of the hospitalization. Her qualifying diagnosis for hospice will be severe right-sided congestive heart failure with a preserved ejection fraction and cor pulmonale. She also has pulmonary hypertension. She is dependent for all of her cares and not ambulatory at this time. She is oxygen dependent and gets dyspnea with any activity. - Patient Instructions Diet: Low Sodium Activity: As Tolerated Other/Special Instructions: 1. You were in the hospital for management of congestive heart failure caused by right-sided heart failure leading to left- sided congestive heart failure (cor pulmonale). Despite aggressive medical treatment your condition has not improved and has actually declined. After discussions with you and your family the decision was made to transition to a comfort based approach at this time. I have placed a referral to hospice and they will be providing care after your hospital discharge and your return home. 2. An updated list of your medications will be provided at the time of discharge. We have discontinued several medications including blood pressure medications and a diuretic because your blood pressure is too low to use these medications safely. - Discharge Plan *PRESCRIPTION DRUG MONITORING PROGRAM REVIEWED*: Not Applicable *COPY OF PRESCRIPTION DRUG MONITORING REPORT IN PATIENT TARIQ: Not Applicable Prescriptions/Med Rec: Apixaban [Eliquis] 5 mg PO BID #60 tablet Morphine [Morphine 20 MG/ML Soln] 5 mg PO Q4H PRN #30 ml PRN Reason: Pain/Dyspnea Nystatin [Nystop] 1 gm TOP TID #3 bottle Home Medications: Home Meds Aspirin [Halfprin] 81 mg PO DAILY 04/06/15 [History] Carbidopa/Levodopa [Carbidopa-Levodopa 25-100 Tab] 1 each PO BEDTIME 04/06/15 [History] OXcarbazepine [Oxcarbazepine] 300 mg PO BID PRN 04/06/15 [History] Latanoprost [Xalatan 0.005% Ophth Soln] 1 drop EYEBOTH BEDTIME 05/30/17 [History] Betaxolol [Betoptic S 0.25% Ophth Susp] 1 drop EYEBOTH BID 09/23/17 [History] Ammonium Lactate [Lac-Hydrin 12% Crm] 1 appful TOP ASDIRECTED 05/01/19 [History] Pramipexole [Mirapex] 0.5 mg PO BEDTIME 05/01/19 [History] Apixaban [Eliquis] 5 mg PO BID #60 tablet 07/07/20 [Rx] Morphine [Morphine 20 MG/ML Soln] 5 mg PO Q4H PRN #30 ml 06/01/20 [Rx] Nystatin [Nystop] 1 gm TOP TID #3 bottle 06/01/20 [Rx] Oxygen Therapy Mode: Nasal Cannula Referrals: Josue Vanessa, SENIOR DEVELOPER [Primary Care Provider] - - Discharge Summary/Plan Comment DC Time >30 min.: Yes (60-setting up hospice ) - Patient Data Vitals - Most Recent: Last Vital Signs Temp 36.3 C 06/01/20 07:00 Pulse 74 06/01/20 07:00 Resp 18 06/01/20 08:00 BP 98/57 L 06/01/20 08:00 Pulse Ox 91 L 06/01/20 08:00 Weight - Most Recent: 100.97 kg I&O - Last 24 hours: Intake & Output 05/31/20 06/01/20 06/01/20 22:59 06:59 14:59 Intake Total 1352 662 Output Total 30 18 Balance 1322 644 Med Orders - Current: Current Medications Acetaminophen (Tylenol) 650 mg PO Q4H PRN PRN Reason: Pain (Mild 1-3)/fever Last Admin: 05/30/20 10:23 Dose: 650 mg Documented by: Apixaban (Eliquis) 5 mg PO BID [facility] Last Admin: 05/31/20 21:12 Dose: 5 mg Documented by: Aspirin (Halfprin) 81 mg PO DAILY [facility] Last Admin: 05/31/20 08:42 Dose: 81 mg Documented by: Carbidopa/Levodopa (Sinemet 25-100 Mg) 1 tab PO BEDTIME [facility] Last Admin: 05/31/20 21:12 Dose: 1 tab Documented by: Dextrose (Glutose 15) 15 gm PO ONETIME PRN PRN Reason: Hypoglycemia Dextrose/Water (Dextrose 50% In Water) 50 ml IV ONETIME PRN PRN Reason: Hypoglycemia Diclofenac Sodium (Voltaren 1% Gel) 1 gm TOP QID PRN PRN Reason: Pain Last Admin: 05/31/20 21:16 Dose: 1 ea Documented by: Norepinephrine Bitartrate 4 mg (/ Dextrose/Water) 250 mls @ 7.5 mls/hr IV TITRATE [facility]; Protocol Last Titration: 06/01/20 05:00 Dose: 4 mcg/min, 15 mls/hr Documented by: Sodium Chloride (Normal Saline) 1,000 mls @ 25 mls/hr IV ASDIRECTED [facility] Latanoprost (Xalatan 0.005% Ophth Soln) 0 ml EYEBOTH BEDTIME [facility] Last Admin: 05/31/20 21:12 Dose: 1 drop Documented by: Melatonin (Melatonin) 9 mg PO BEDTIME [facility] Last Admin: 05/31/20 21:11 Dose: 9 mg Documented by: Metformin HCl (Glucophage) 1,000 mg PO BIDMEALS [facility] Last Admin: 05/31/20 17:28 Dose: 1,000 mg Documented by: Betoptic-S 0.25% (Ophth Ptom) 0 drop EYEBOTH BID [facility] Last Admin: 05/31/20 21:11 Dose: 1 drop Documented by: Nystatin (Nystop) 1 gm TOP TID [facility] Last Admin: 05/31/20 21:12 Dose: 1 gm Documented by: Ondansetron HCl (Zofran) 4 mg IV Q4H PRN PRN Reason: Nausea/Vomiting Last Admin: 06/01/20 08:07 Dose: 4 mg Documented by: Oxcarbazepine (Trileptal) 300 mg PO BID PRN PRN Reason: Pain Last Admin: 05/25/20 16:26 Dose: 300 mg Documented by: Oxycodone HCl (Oxycodone) 5 mg PO Q4H PRN PRN Reason: Pain (moderate 4-6) Last Admin: 06/01/20 03:05 Dose: 5 mg Documented by: Pantoprazole Sodium (Protonix) 40 mg PO BIDAC [facility] Last Admin: 05/31/20 17:28 Dose: 40 mg Documented by: Phenazopyridine HCl (Urinary Pain Relief) 95 mg PO Q6H PRN PRN Reason: urinary urgency Last Admin: 05/30/20 18:49 Dose: 95 mg Documented by: Polyethylene Glycol (Miralax) 17 gm PO DAILY PRN PRN Reason: Constipation Last Admin: 05/25/20 16:12 Dose: 17 gm Documented by: Pramipexole Dihydrochloride (Mirapex) 0.5 mg PO BEDTIME [facility] Last Admin: 05/31/20 21:12 Dose: 0.5 mg Documented by: Sodium Chloride (Saline Flush) 10 ml FLUSH ASDIRECTED PRN PRN Reason: Keep Vein Open Discontinued Medications Apixaban (Eliquis) 10 mg PO BID [facility] Stop: 05/30/20 09:01 Last Admin: 05/30/20 08:34 Dose: 10 mg Documented by: Cephalexin (Keflex) 500 mg PO BID [facility] Stop: 05/27/20 09:01 Last Admin: 05/27/20 09:25 Dose: 500 mg Documented by: Fentanyl (Sublimaze) 50 mcg IVPUSH ONETIME ONE Stop: 05/23/20 10:35 Last Admin: 05/23/20 10:49 Dose: 50 mcg Documented by: Furosemide (Lasix) 40 mg IVPUSH Q12H [facility] Last Admin: 05/26/20 11:36 Dose: Not Given Documented by: Furosemide (Lasix) 20 mg IVPUSH NOW ONE Stop: 05/27/20 14:01 Last Admin: 05/27/20 12:59 Dose: 20 mg Documented by: Furosemide (Lasix) 20 mg IVPUSH ONETIME ONE Stop: 05/28/20 01:01 Last Admin: 05/28/20 01:27 Dose: 20 mg Documented by: Furosemide (Lasix) 20 mg IVPUSH Q8H [facility]AREN Last Admin: 05/28/20 18:25 Dose: 20 mg Documented by: Furosemide (Lasix) 40 mg IVPUSH Q8H [facility] Last Admin: 05/30/20 03:22 Dose: Not Given Documented by: Sodium Chloride (Normal Saline) 1,000 mls @ 125 mls/hr IV ASDIRECTED [facility] Last Admin: 05/23/20 10:51 Dose: 125 mls/hr Documented by: Sodium Chloride (Normal Saline) 80 mls @ 3 mls/sec IV ASDIRECTED [facility] Stop: 05/23/20 10:46 Sodium Chloride (Normal Saline) 75 mls @ 3 mls/sec IV ASDIRECTED [facility] Stop: 05/23/20 13:00 Last Admin: 05/23/20 12:40 Dose: 3 mls/sec Documented by: Sodium Chloride (Normal Saline) 1,000 mls @ 100 mls/hr IV ASDIRECTED [facility] Last Admin: 05/24/20 08:59 Dose: 100 mls/hr Documented by: Sodium Chloride (Normal Saline) 1,000 mls @ 500 mls/hr IV ONETIME ONE Stop: 05/24/20 01:14 Last Admin: 05/23/20 23:19 Dose: 500 mls/hr Documented by: Magnesium Sulfate 2 gm/ Premix 50 mls @ 12.5 mls/hr IV Q6H [facility] Stop: 05/25/20 13:59 Last Admin: 05/25/20 10:19 Dose: 12.5 mls/hr Documented by: Dopamine HCl/Dextrose (Dopamine In D5w 400 Mg/250 Ml) 400 mg in 250 mls @ 7.573 mls/hr IV TITRATE [facility]; Protocol Last Titration: 05/30/20 10:25 Dose: 0 mcg/kg/min, 0 mls/hr Documented by: Magnesium Sulfate 2 gm/ Premix 50 mls @ 25 mls/hr IV Q6H [facility] Stop: 05/28/20 16:59 Last Admin: 05/28/20 16:15 Dose: 25 mls/hr Documented by: Dopamine HCl/Dextrose (Dopamine In D5w 400 Mg/250 Ml) 400 mg in 250 mls @ 11.359 mls/hr IV TITRATE [facility]; Protocol Last Titration: 05/30/20 13:31 Dose: 0 mcg/kg/min, 0 mls/hr Documented by: Sodium Chloride (Normal Saline) 500 mls @ 999 mls/hr IV ASDIRECTED [facility] Stop: 05/30/20 11:46 Sodium Chloride (Normal Saline) 500 mls @ 999 mls/hr IV ASDIRECTED [facility] Stop: 05/30/20 12:31 Sodium Chloride (Normal Saline) 1,000 mls @ 100 mls/hr IV ASDIRECTED [facility] Last Admin: 05/31/20 02:40 Dose: 100 mls/hr Documented by: Sodium Chloride (Normal Saline) 500 mls @ 500 mls/hr IV ASDIRECTED [facility] Stop: 05/30/20 15:31 Magnesium Sulfate 2 gm/ Premix 50 mls @ 12.5 mls/hr IV Q6H [facility] Stop: 06/01/20 00:59 Last Admin: 05/31/20 21:09 Dose: 12.5 mls/hr Documented by: Insulin Human Lispro (Humalog) 0 unit SUBCUT QIDACANDBED [facility]; Protocol Last Admin: 05/24/20 15:01 Dose: Not Given Documented by: Iopamidol (Isovue-300 (61%)) 100 ml IV . DIRECTED [facility] Stop: 05/23/20 10:46 Iopamidol (Isovue-300 (61%)) 100 ml IV . DIRECTED [facility] Stop: 05/23/20 13:00 Last Admin: 05/23/20 12:40 Dose: 100 ml Documented by: Losartan Potassium (Cozaar) 100 mg PO DAILY [facility] Last Admin: 05/27/20 09:39 Dose: Not Given Documented by: Metoprolol Tartrate (Lopressor) 50 mg PO BID [facility] Last Admin: 05/30/20 08:35 Dose: 50 mg Documented by: Nystatin (Nystop) 0 gm TOP QID PRN PRN Reason: Rash Last Admin: 05/26/20 23:34 Dose: 1 applic Documented by: Oxycodone HCl (Oxycodone) 5 mg PO Q4H PRN PRN Reason: Pain (moderate 4-6) Last Admin: 05/24/20 07:20 Dose: 5 mg Documented by: Oxycodone HCl (Oxycodone) 10 mg PO Q4H PRN PRN Reason: Pain (moderate 4-6) Last Admin: 05/28/20 14:50 Dose: 10 mg Documented by: Pantoprazole Sodium (Protonix) 40 mg PO BID [facility] Last Admin: 05/23/20 21:18 Dose: 40 mg Documented by: Potassium Chloride (Klor-Con M20) 40 meq PO ONETIME ONE Stop: 05/24/20 10:01 Last Admin: 05/24/20 10:45 Dose: 40 meq Documented by: Sodium Chloride (Saline Flush) 10 ml FLUSH ASDIRECTED PRN PRN Reason: Keep Vein Open Sodium Chloride (Saline Flush) 10 ml FLUSH ONETIME ONE Stop: 05/23/20 10:46 Last Admin: 05/23/20 20:06 Dose: Not Given Documented by: Sodium Chloride (Saline Flush) 10 ml FLUSH ONETIME ONE Stop: 05/23/20 12:10 Last Admin: 05/23/20 12:40 Dose: 10 ml Documented by: *Q Meaningful Use (DIS) - VTE *Q VTE Pharmacological Contraindications *Q: High INR Value
[2020-06-01] MEDS: Pantoprazole 40 MG Tab.CR PO SCH (09:32)
[2020-06-01] MEDS: metFORMIN 500 MG Tab PO SCH (09:32)
[2020-06-01] MEDS: Nystatin Topical Powder 15 GM Bottle TOP SCH (09:33)
[2020-06-01] MEDS: BETOPTIC S 0.25% EYEBOTH SCH (09:33)
[2020-06-01] MEDS: Apixaban 5 MG Tab PO SCH (09:33)
[2020-06-01] MEDS: Aspirin 81 MG Tab.EC PO SCH (09:33)
[2020-06-01 09:41] VITALS: BP 101/57
--- NOTE | 2020-06-01 09:59 | CR ---
Elbow Min 3V Lt CLINICAL HISTORY: Elbow pain and swelling FINDINGS: There is a linear lucency longitudinally through the capitellum. There is no displacement. Fat pads do not appear significantly displaced. The fat pads are in normal position.. Impression: Longitudinal lucency through the distal humerus along the capitellum. Nondisplaced fracture is not excluded.
--- NOTE | 2020-06-01 10:26 | CR ---
Shoulder Comp Lt CLINICAL HISTORY: Pain and limited range of motion FINDINGS: There is no acute fracture or dislocation in the left shoulder. There are degenerative changes at the AC joint. Patient has diffuse left lung infiltrate. This is exaggerated by patient's large size and less than optimal inspiration. Impression: Degenerative changes Left lung infiltrate
== END 2020-06-01 10:21 | disposition hospice, home (50) | DRG 291 ==
LOC: JP.ED 09:41 → JP.MS 15:13 → JP.ICU 05-27 13:00
PROVIDERS: ADMIT Hospitalist; ATTEND Internal Medicine
DX: I26.99 Other pulmonary embolism without acute cor pulmonale (principal); R53.1 Weakness; W19.XXXA Unspecified fall, initial encounter; I11.0 Hypertensive heart disease with heart failure; I10 Essential (primary) hypertension; I26.09 Other pulmonary embolism with acute cor pulmonale; N17.9 Acute kidney failure, unspecified; N30.00 Acute cystitis without hematuria; I27.82 Chronic pulmonary embolism; Z68.42 Body mass index [BMI] 45.0-49.9, adult; I50.33 Acute on chronic diastolic (congestive) heart failure; I27.20 Pulmonary hypertension, unspecified; I95.9 Hypotension, unspecified; I89.0 Lymphedema, not elsewhere classified; E11.69 Type 2 diabetes mellitus with other specified complication; D64.9 Anemia, unspecified; Z79.82 Long term (current) use of aspirin; Z88.8 Allergy status to other drugs, medicaments and biological substances; Z79.899 Other long term (current) drug therapy; Z79.84 Long term (current) use of oral hypoglycemic drugs; E78.00 Pure hypercholesterolemia, unspecified; K21.9 Gastro-esophageal reflux disease without esophagitis; K44.9 Diaphragmatic hernia without obstruction or gangrene; G89.29 Other chronic pain; M54.9 Dorsalgia, unspecified; M54.2 Cervicalgia; G25.81 Restless legs syndrome; E11.9 Type 2 diabetes mellitus without complications; E66.9 Obesity, unspecified; L89.90 Pressure ulcer of unspecified site, unspecified stage; Z98.49 Cataract extraction status, unspecified eye; Z90.49 Acquired absence of other specified parts of digestive tract
CPT/HCPCS: 36415; 71260; 73060; 80053; 82550; 83605; 85025; 96361; 96374; 99285; J3010; J7030; J7050; Q9967; 51700; 51701; 51702; 73030-26-LT; 73030-LT; 73080-26-LT; 73080-LT; 80048; 81001; 82962; 83735; 85027; 93005; 93306; 93970; 93970-26; 97110-GO; 97110-GP; 97162-GP; 97164-GP; 97165-GO; 97530-GP; 97535-GP; A9270-GY; J1265; J1815; J1940; J2405; J3475; J7060